=== PATIENT | female | born 1930 | race Caucasian/White ===

== ENCOUNTER 2017-03-27 14:08 | Emergency (ER) | payer MEDICARE, OTHER ==
[2017-03-27 14:14] VITALS: RESP 20
--- NOTE | 2017-03-27 14:29 | ED ---
General Adult HPI - General Chief complaint: Skin/Abscess/Foreign Body Stated complaint: Tooth stuck in lung Time Seen by Provider: 03/27/17 14:18 Source: patient Mode of arrival: ambulatory Limitations: no limitations - History of Present Illness Initial comments: This is an 86-year-old female who presents emergency department from her primary doctor's office for an aspirated crown from her tooth. The patient states that approximately 10 days ago she cracked the crown and went to the dentist area the dentist was removing it and lost it. They believe that she had swallowed it and he advised her to check her stool however she was not finding anything. She went to her primary doctor's office who shot an x-ray that showed that the crown was in the lung. On review of the film from the primary doctor's office it appears to be in the right inferior secondary branch. There does not appear to be any consolidation. The patient has been coughing since it happened however no other complaints. No fevers or chills. - Related Data Home Medications Medication Instructions Recorded Confirmed Ascorbic Acid [Vitamin C] 1,000 mg PO DAILY 03/27/17 03/27/17 Atenolol 25 mg PO DAILY 03/27/17 03/27/17 Calcium Carbonate [Calcium] 600 mg PO DAILY 03/27/17 03/27/17 Cyanocobalamin [Vitamin B-12] 500 mcg PO DAILY 03/27/17 03/27/17 Glucosam/Coleman-Msm1/C/Regino/Bosw 1 tab PO DAILY 03/27/17 03/27/17 [Glucosamine-Chondroitin Tablet] Lisinopril [Prinivil] 20 mg PO DAILY 03/27/17 03/27/17 Nasanel Nose Drops 1 drop EA NOSTRIL DAILY PRN 03/27/17 03/27/17 [place]-3 Fatty Acids/Fish Oil [Fish 1 cap PO DAILY 03/27/17 03/27/17 Oil 1,000 mg Softgel] Simvastatin [Zocor] 40 mg PO HS 03/27/17 03/27/17 Allergies Allergy/AdvReac Type Severity Reaction Status Date / Time No Known Allergies Allergy Verified 03/27/17 15:25 Review of Systems ROS Statement: Those systems with pertinent positive or pertinent negative responses have been documented in the HPI. ROS Other: All systems not noted in ROS Statement are negative. Past Medical History Past Medical History: Coronary Artery Disease (CAD), Chest Pain / Angina, Hyperlipidemia, Myocardial Infarction ([place]), Pneumonia History of Any Multi-Drug Resistant Organisms: None Reported Past Surgical History: Heart Catheterization With Stent Past Psychological History: No Psychological Hx Reported Smoking Status: Never smoker Past Alcohol Use History: None Reported Past Drug Use History: None Reported General Exam - General Exam Comments Initial Comments: Constitutional: Awake alert Appears comfortable Head: Normocephalic atraumatic Eyes: no conjunctival injection No scleral icterus EOMI Neck: No JVD Supple Heart: Regular rate rhythm normal S1-S2 no murmurs Lungs: Clear to auscultation bilaterally No wheezing No rales Abdomen: Soft nondistended nontender Extremities: Non edematous DP pulses intact Radial pulses intact Neuro: A&Ox3 No focal neurologic deficits Psych: Appropriate mood and affect Limitations: no limitations Course Vital Signs 03/27/17 14:09 Temperature 98.5 F Pulse Rate 78 Respiratory 20 Rate Blood Pressure 151/65 O2 Sat by Pulse 96 Oximetry Medical Decision Making - Medical Decision Making Is an 86-year-old female who presents emergency department for aspirated crown. Patient was seen by Dr. Maher and requires bronchoscopy however the patient last ate at 10:30 and thus would not be able to be done today. We're able to set up through Dr. Maher's office an appointment for bronchoscopy tomorrow. Sagar's office will call the patient and update them with the time of the bronchoscopy. At this time the patient is stable and able to go home. Can return if she has any worsening or changing symptoms. - Lab Data Result diagrams: 03/27/17 14:35 03/27/17 14:35 Lab Results 03/27/17 03/27/17 03/27/17 Range/Units 14:35 14:35 14:35 WBC 10.6 (3.8-10.6) k/uL RBC 3.88 (3.80-5.40) m/uL Hgb 12.5 (11.4-16.0) gm/dL Hct 36.8 (34.0-46.0) % MCV 94.8 (80.0-100.0) fL MCH 32.3 (25.0-35.0) pg MCHC 34.0 (31.0-37.0) g/dL RDW 13.5 (11.5-15.5) % Plt Count 166 (150-450) k/uL Neutrophils % 71 % Lymphocytes % 16 % Monocytes % 9 % Eosinophils % 1 % Basophils % 0 % Neutrophils # 7.6 (1.3-7.7) k/uL Lymphocytes # 1.7 (1.0-4.8) k/uL Monocytes # 1.0 (0-1.0) k/uL Eosinophils # 0.1 (0-0.7) k/uL Basophils # 0.0 (0-0.2) k/uL PT 11.3 (9.0-12.0) sec INR 1.1 (<1.2) APTT 24.4 (22.0-30.0) sec Sodium 136 L (137-145) mmol/L Potassium 4.4 (3.5-5.1) mmol/L Chloride 102 (98-107) mmol/L Carbon Dioxide 23 (22-30) mmol/L Anion Gap 11 mmol/L BUN 23 H (7-17) mg/dL Creatinine 1.12 H (0.52-1.04) mg/dL Est GFR (MDRD) Af Amer 56 (>60 ml/min/1.73 sqM) Est GFR (MDRD) Non-Af 46 (>60 ml/min/1.73 sqM) Glucose 110 H (74-99) mg/dL Calcium 9.0 (8.4-10.2) mg/dL Total Bilirubin 0.6 (0.2-1.3) mg/dL AST 72 H (14-36) U/L ALT 74 H (9-52) U/L Alkaline Phosphatase 155 H (38-126) U/L Total Protein 6.6 (6.3-8.2) g/dL Albumin 3.5 (3.5-5.0) g/dL Disposition Clinical Impression: Foreign body in lung Disposition: HOME SELF-CARE Condition: Stable Instructions: Flexible Bronchoscopy (ED) Referrals: Reji Stoner MD [Primary Care Provider] - 1-2 days iTto Maher MD [STAFF PHYSICIAN] - 1-2 days
[2017-03-27 14:50] LABS: Basophils % (A) 0 %; CH 32.6; CHCM 34.6; Eosinophils # (A) 0.1 k/uL (0-0.7); Eosinophils % (A) 1 %; HCT 36.8 % (34.0-46.0); HDW 2.84; HGB 12.5 gm/dL (11.4-16.0); Luc # (Auto) 0.24; Luc % (Auto) 2; Lymphocytes # (A) 1.7 k/uL (1.0-4.8); Lymphocytes % (A) 16 %; MCH 32.3 pg (25.0-35.0); MCV 94.8 fL (80.0-100.0); Mean Platelet Volume 7.8; Monocytes % (A) 9 %; Neutrophils # (A) 7.6 k/uL (1.3-7.7); Neutrophils % (A) 71 %; RBC 3.88 m/uL (3.80-5.40); RDW 13.5 % (11.5-15.5); WBC 10.6 k/uL (3.8-10.6); WBC (Perox) 10.74
[2017-03-27 15:04] LABS: Potassium 4.4 mmol/L (3.5-5.1); Total Bilirubin 0.6 mg/dL (0.2-1.3); Total Protein 6.6 g/dL (6.3-8.2)
[2017-03-27 15:07] LABS: INR 1.1 (<1.2); Partial Thromboplastin Time 24.4 sec (22.0-30.0); Prothrombin Time 11.3 sec (9.0-12.0)
[2017-03-27 15:50] VITALS: BP 153/68; PULSE 70; TEMP 98.1
== END 2017-03-27 16:02 | disposition home or self-care (01) ==
LOC: EC 14:08
DX: T17.298A Other foreign object in pharynx causing other injury, initial encounter (principal); I25.10 Atherosclerotic heart disease of native coronary artery without angina pectoris; E78.5 Hyperlipidemia, unspecified; I25.2 Old myocardial infarction; Z79.899 Other long term (current) drug therapy; Z95.5 Presence of coronary angioplasty implant and graft
CPT/HCPCS: 36415; 80053; 85025; 85610; 85730; 99283

== ENCOUNTER 2017-03-28 11:26 | Day surgery (SDC) | payer MEDICARE ==
--- NOTE | 2017-03-27 18:02 | P.CNPUL ---
History of Present Illness Consult date: 03/27/17 Chief complaint: Foreign body aspiration History of present illness: 86-year-old female patient who initially presented to her primary care for increased cough and. The patient was undergoing a dental procedure approximately 10 days ago and during the procedure the found that cracked and it was lost. Ascites also that the patient could have aspirated the gold crown. The patient believes that she swallowed the crown however based on an ongoing symptoms of coughing she went to her primary care physician and the chest x-ray was done and the count was found to be in the right lung, probably in the right mainstem bronchus or bronchus intermedius. No hemoptysis. No chest pain. No fever or chills. No pleurisy. I was asked to consult on this patient and bronchoscopically remove the foreign body. Review of Systems Constitutional: Denies chills, Denies fever Eyes: denies blurred vision, denies bulging eye, denies decreased vision Ears: deny: decreased hearing, ear discharge, earache, tinnitus Ears, nose, mouth and throat: Denies headache, Denies sore throat Cardiovascular: Denies chest pain, Denies shortness of breath Respiratory: Reports cough Gastrointestinal: Denies abdominal pain, Denies diarrhea, Denies nausea, Denies vomiting Genitourinary: Denies dysuria, Denies hematuria Musculoskeletal: Denies myalgias Musculoskeletal: absent: ankle pain, ankle stiffness, ankle swelling Integumentary: Denies pruritus, Denies rash Neurological: Denies numbness, Denies weakness Psychiatric: Denies anxiety, Denies depression Endocrine: Denies fatigue, Denies weight change Past Medical History Past Medical History: Coronary Artery Disease (CAD), Chest Pain / Angina, Hyperlipidemia, Myocardial Infarction ([place]), Pneumonia Additional Past Medical History / Comment(s): Coronary artery disease with a previous history of coronary intervention and stenting, hypertension, hyperlipidemia, osteoarthritis. History of Any Multi-Drug Resistant Organisms: None Reported Past Surgical History: Heart Catheterization With Stent Past Psychological History: No Psychological Hx Reported Smoking Status: Never smoker Past Alcohol Use History: None Reported Past Drug Use History: None Reported Medications and Allergies Home Medications Medication Instructions Recorded Confirmed Type Ascorbic Acid [Vitamin C] 1,000 mg PO DAILY 03/27/17 03/27/17 History Atenolol 25 mg PO DAILY 03/27/17 03/27/17 History Calcium Carbonate [Calcium] 600 mg PO DAILY 03/27/17 03/27/17 History Cyanocobalamin [Vitamin B-12] 500 mcg PO DAILY 03/27/17 03/27/17 History Glucosam/Coleman-Msm1/C/Regino/Bosw 1 tab PO DAILY 03/27/17 03/27/17 History [Glucosamine-Chondroitin Tablet] Lisinopril [Prinivil] 20 mg PO DAILY 03/27/17 03/27/17 History Nasanel Nose Drops 1 drop EA NOSTRIL DAILY PRN 03/27/17 03/27/17 History [place]-3 Fatty Acids/Fish Oil [Fish 1 cap PO DAILY 03/27/17 03/27/17 History Oil 1,000 mg Softgel] Simvastatin [Zocor] 40 mg PO HS 03/27/17 03/27/17 History Allergies Allergy/AdvReac Type Severity Reaction Status Date / Time No Known Allergies Allergy Verified 03/27/17 15:25 Physical Exam The patient appeared well nourished and normally developed. Vital signs as documented. Head exam is unremarkable. No scleral icterus or corneal arcus noted. Neck is without jugular venous distension, thyromegaly, or carotid bruits. Carotid upstrokes are brisk bilaterally. Lungs are clear to auscultation and percussion. Cardiac exam reveals the PMI to be normally sized and situated. Rhythm is regular. First and second heart sounds normal. No murmurs, rubs or gallops. Abdominal exam reveals normal bowel sounds, no masses , no organomegaly and no aortic enlargement. Extremities are nonedematous and both femoral and pedal pulses are normal. Results - Diagnostic Findings Chest x-ray: image reviewed Assessment and Plan Plan: Assessment 1 foreign body aspiration, a dental crown/metallic/gold. Based on x-ray, this foreign bodies either in the right mainstem bronchus or the bronchus intermedius. Bronchoscopic removal of foreign body will be needed 2 cough secondary to above 3 coronary artery disease, history of 4 hypertension 5 hyperlipidemia Plan The patient will be discharged home. The scheduled bronchoscopy will be done tomorrow at around noontime for retrieval of this foreign body. Unfortunately the procedure cannot be done today as long as the patient had fluid intake around noontime and she is be at least nothing by mouth for 6 hours prior to bronchoscopic intervention. Furthermore, the endoscopy team will be available for today. Based on this, this procedure was scheduled for tomorrow. The patient will be discharged home today. She will present again tomorrow. After midnight. The procedure was extended to her at length. Further recommendations are to follow following the bronchoscopy.
[~2017-03-28 11:26] MED LIST: ALBUTEROL NEB (CONC) 2.5 MG/0.5 ML INHALATION ONE; LACTATED RINGERS 1,000 ML IV ONE; LIDOCAINE 2% (PF) 20 MG/ML 10ML INHALATION ONE; Pre Op ABX Message 1 EACH MISC MISCELLANE ONE
[2017-03-28] MEDS ORDERED: SUCCINYLCHOLINE CHLORIDE VIAL 200 MG/10 ML VIAL IV ONE (13:38)
[2017-03-28] MEDS ORDERED: GLYCOPYRROLATE 0.2 MG/ML 2 ML VIAL ONE (13:38)
[2017-03-28] MEDS ORDERED: PROPOFOL 10 MG/ML 20 ML VIAL IV ONE (13:38)
[2017-03-28] MEDS ORDERED: DEXAMETHASONE SOD PHOS (MDV) 100 MG/10 ML VIAL ONE (13:38)
[2017-03-28] MEDS ORDERED: MIDAZOLAM 2 MG/2 ML VIAL ONE (13:38)
--- NOTE | 2017-03-28 14:18 | P.PCN ---
Date of Procedure: 03/28/17 Preoperative Diagnosis: Foreign body aspiration Postoperative Diagnosis: Foreign body aspiration Procedure(s) Performed: Flexible bronchoscopy, extraction of a foreign body/gold tooth crown, bronchioloalveolar lavage of the right lower lobe Implants: Anesthesia: JAYYA Surgeon: Tito Maher Visual Coordinator #1: Francia Barriga Estimated Blood Loss (ml): 0 Pathology: none sent Condition: stable Disposition: same day Indications for Procedure: Persistent cough, aspiration Operative Findings: Description of Procedure: This procedure was done in the operating room. The patient's procedure was done under general anesthesia. The patient was induced with propofol and succinylcholine. Intubated and placed on a mechanical ventilator I anesthesia. The patient was intubated by a #8 orotracheal tube. An adapter was attached orotracheal tube and the procedure was done as the patient was being mechanically ventilated. Following that, the flexible bronchoscope was inserted the oral check her tube and was advanced into the lower trachea. A triple daughter taken she was seen around 3 cm above the mary. There was copious amount of purulent respiratory secretions it emanating in the distal trachea, right mainstem bronchus, right bronchus intermedius and right lower lobe bronchus. Therapeutic airway suctioning was done and airway inspection was completed. Examination of the left side of the lung was within normal limits. Mary was sharp in the midline, left mainstem bronchus left upper lobe bronchus and left lower lobe bronchus were patent and within normal limits without any foreign bodies. Examination of the right side showed a normal right upper lobe bronchus. Bronchus intermedius was quite significantly impacted by purulent secretions were suctioned out. After adequate adequate suctioning, the right lower lobe bronchus was visualized more accurately. The gold to it Was seen covering the right lower lobe bronchus. The Was infiltrating within the bronchial mucosa and it was somewhat entrenched within the mucosa. The Was also circumferentially covered by granulation tissue that was causing near complete obstruction of the right lower lobe bronchus. At this point, greatest was were used to manipulate and mobilize the tooth. I utilized a basket and then a grasping pentapod forceps. Despite our ability to grab the foreign body, the forceps that was used was unable to keep the foreign body in a good firm grasp to the point where it could be pulled out through the orotracheal tube and out of the airways. Ultimately, if 4.7 mm grasping forceps was used and after getting an adequate garbage stoker on the foreign body, the patient was extubated while the foreign body was being extracted under direct visualization using the flexible bronchoscope. The foreign body was successfully removed. Following that the patient was intubated by anesthesia and airway inspection was completed. There was significant amount of dilation tissue growing circumferentially in the right lower lobe bronchus causing significant drop in the caliber of the airway. I would estimate the caliber of the airway was reduced by about 50%. A bronchioloalveolar lavage of the right lower lobe was done. A total of 1 20 mL of fluid was infused in 30 mL of purulent material was aspirated. At the end of the procedure, no additional foreign body within the fight and the patient was sedated and chest to recovery in stable condition. The bronchioloalveolar lavage will be sent for microbial culture. The patient will be started on Augmentin 875 mg by mouth twice a day for the next 7 days. Follow-up chest x-ray in the office. Discharge once cleared by anesthesia.
[2017-03-28] MEDS ORDERED: LACTATED RINGERS 1,000 ML IV ONE ×2 (14:29)
[2017-03-28 14:37] VITALS: TEMP 97.8
[2017-03-28] MEDS ORDERED: guaiFENesin-Coden 100-10MG/5ML 10 ML CUP PO PRN (15:02)
[2017-03-28 15:46] VITALS: RESP 16
[2017-03-28 16:16] VITALS: BP 146/65; PULSE 84
[2017-03-28 20:23] LABS: RBC, Body Fluid 64500 /uL
== END 2017-03-28 16:25 | disposition home or self-care (01) ==
LOC: ORWHC2ENDO 11:26
PROVIDERS: ATTEND Internal Medicine Critical Care Medicine
DX: T17.590A Other foreign object in bronchus causing asphyxiation, initial encounter (principal); I25.10 Atherosclerotic heart disease of native coronary artery without angina pectoris; E78.5 Hyperlipidemia, unspecified; M19.90 Unspecified osteoarthritis, unspecified site; Z95.5 Presence of coronary angioplasty implant and graft; I25.2 Old myocardial infarction; Z79.899 Other long term (current) drug therapy; Z87.01 Personal history of pneumonia (recurrent)
CPT/HCPCS: 88108; 88305; 89050; 87070; 87205; 31624; 31635; J2250; J0330; J2001; J1100; J2704

== ENCOUNTER 2017-03-31 20:32 | Inpatient (IN) | payer MEDICARE ==
[2017-03-31] MEDS ORDERED: ACETAMINOPHEN TAB 500 MG TAB PO STA (21:59)
[2017-03-31] MEDS ORDERED: IPRATROPIUM-ALBUTEROL 3 ML NEB INHALATION STA (21:59)
[2017-03-31] MEDS ORDERED: SODIUM CHLORIDE 0.9% 1,000 ML IV ONE (22:01)
--- NOTE | 2017-03-31 22:13 | ED ---
URI HPI - General Chief Complaint: Upper Respiratory Infection Stated Complaint: SOB Time Seen by Provider: 03/31/17 21:59 Source: patient, RN notes reviewed, old records reviewed Mode of arrival: ambulatory Limitations: no limitations - History of Present Illness Initial Comments: This is an 86-year-old female presenting to emergency Department 2 days post bronchoscopy after a tooth Was re-swallowed and then removed. She reports that she had a "blackout of her right lung". Patient states that she was discharged with Augmentin and Robitussin with codeine. She reports that despite taking the antibiotics and cough syrup she's had a worsening cough and has had fevers. She reports that she had some Tylenol earlier today. She states that her she does have some abdominal muscle pain due to the amount of coughing she's had. She didn't ports she's had some diarrhea today as well. - Related Data Home Medications Medication Instructions Recorded Confirmed Ascorbic Acid [Vitamin C] 1,000 mg PO DAILY 03/27/17 03/31/17 Atenolol 25 mg PO DAILY 03/27/17 03/31/17 Calcium Carbonate [Calcium] 600 mg PO DAILY 03/27/17 03/31/17 Cyanocobalamin [Vitamin B-12] 500 mcg PO DAILY 03/27/17 03/31/17 Glucosam/Coleman-Msm1/C/Regino/Bosw 1 tab PO DAILY 03/27/17 03/31/17 [Glucosamine-Chondroitin Tablet] Lisinopril [Prinivil] 20 mg PO DAILY 03/27/17 03/31/17 Nasanel Nose Drops 1 drop EA NOSTRIL DAILY PRN 03/27/17 03/31/17 [place]-3 Fatty Acids/Fish Oil [Fish 1 cap PO DAILY 03/27/17 03/31/17 Oil 1,000 mg Softgel] Simvastatin [Zocor] 40 mg PO HS 03/27/17 03/31/17 Amoxic-Pot Clav 875-125Mg 1 tab PO Q12HR 03/31/17 03/31/17 [Augmentin 875-125] guaiFENesin-Coden 100-10MG/5ML 5 - 10 ml PO Q6HR PRN 03/31/17 03/31/17 [Robitussin AC] Allergies Allergy/AdvReac Type Severity Reaction Status Date / Time No Known Allergies Allergy Verified 03/31/17 21:47 Review of Systems ROS Statement: Those systems with pertinent positive or pertinent negative responses have been documented in the HPI. ROS Other: All systems not noted in ROS Statement are negative. Past Medical History Past Medical History: Coronary Artery Disease (CAD), Chest Pain / Angina, Hyperlipidemia, Myocardial Infarction ([place]), Pneumonia Additional Past Medical History / Comment(s): Coronary artery disease with a previous history of coronary intervention and stenting, hypertension, hyperlipidemia, osteoarthritis. History of Any Multi-Drug Resistant Organisms: None Reported Past Surgical History: Heart Catheterization With Stent Past Psychological History: No Psychological Hx Reported Smoking Status: Never smoker Past Alcohol Use History: None Reported Past Drug Use History: None Reported - Past Family History Mother Family Medical History: Hyperlipidemia, Hypertension General Exam - General Exam Comments Initial Comments: Pleasant 86year old female, no acute distress. Limitations: no limitations General appearance: alert, in no apparent distress Head exam: Present: atraumatic, normocephalic, normal inspection Eye exam: Present: normal appearance, PERRL, EOMI. Absent: scleral icterus, conjunctival injection, periorbital swelling ENT exam: Present: normal exam, mucous membranes moist Neck exam: Present: normal inspection. Absent: tenderness, meningismus, lymphadenopathy Respiratory exam: Present: normal lung sounds bilaterally, wheezes (Mild wheeze in the right lower lung field.). Absent: respiratory distress, rales, rhonchi, stridor Cardiovascular Exam: Present: regular rate, normal rhythm, normal heart sounds. Absent: systolic murmur, diastolic murmur, rubs, gallop, clicks GI/Abdominal exam: Present: soft, normal bowel sounds. Absent: distended, tenderness, guarding, rebound, rigid Extremities exam: Present: normal inspection, full ROM, normal capillary refill. Absent: tenderness, pedal edema, joint swelling, calf tenderness Back exam: Present: normal inspection Neurological exam: Present: alert, oriented X3, CN II-XII intact Psychiatric exam: Present: normal affect, normal mood Skin exam: Present: warm, dry, intact, normal color. Absent: rash Course Vital Signs 03/31/17 03/31/17 03/31/17 21:26 22:41 22:48 Temperature 103.1 F H Pulse Rate 105 H 84 84 Respiratory 22 Rate Blood Pressure 219/91 O2 Sat by Pulse 92 L Oximetry 04/01/17 04/01/17 00:00 02:00 Temperature 98.4 F 98.4 F Pulse Rate 83 90 Respiratory 16 20 Rate Blood Pressure 140/63 144/66 O2 Sat by Pulse 100 100 Oximetry Medical Decision Making - Medical Decision Making This is an 86-year-old female presenting to emergency Department 2 days post bronchoscopy after a tooth Was aspirated and then removed. She reports that she had a "blackout of her right lung". Patient states that she was discharged with Augmentin and Robitussin with codeine. She reports that despite taking the antibiotics and cough syrup she's had a worsening cough and has had fevers. She does have some mild wheezing. Patient was given a breathing treatment IV fluids lab work obtained. Patient given Tylenol for fever. She arrives to emergency department with 103.1 temperature. Patient labwork was reviewed and no leukocytosis. Negative lactic acid. Chest x-ray was reviewed and showed a right basilar consolidation consistent with pneumonia. Given patient's recent bronchoscopy we will cover for aspiration pneumonia. As patient is a currently been on Augmentin for the past 2 days patient will be started on Azactam, clindamycin, and Levaquin. Discussed that we will does cough syrup and do breathing treatments as directed. 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 Maher. He will be consulted. - Lab Data Result diagrams: 03/31/17 22:40 03/31/17 22:40 Lab Results 03/31/17 03/31/17 03/31/17 Range/Units 22:35 22:40 22:40 WBC 8.3 (3.8-10.6) k/uL RBC 3.97 (3.80-5.40) m/uL Hgb 12.5 (11.4-16.0) gm/dL Hct 38.0 (34.0-46.0) % MCV 95.8 (80.0-100.0) fL MCH 31.4 (25.0-35.0) pg MCHC 32.8 (31.0-37.0) g/dL RDW 13.7 (11.5-15.5) % Plt Count 176 (150-450) k/uL Neutrophils % 82 % Lymphocytes % 9 % Monocytes % 6 % Eosinophils % 2 % Basophils % 0 % Neutrophils # 6.8 (1.3-7.7) k/uL Lymphocytes # 0.7 L (1.0-4.8) k/uL Monocytes # 0.5 (0-1.0) k/uL Eosinophils # 0.1 (0-0.7) k/uL Basophils # 0.0 (0-0.2) k/uL PT (9.0-12.0) sec INR (<1.2) APTT (22.0-30.0) sec Sodium 135 L (137-145) mmol/L Potassium 4.3 (3.5-5.1) mmol/L Chloride 100 (98-107) mmol/L Carbon Dioxide 24 (22-30) mmol/L Anion Gap 11 mmol/L BUN 18 H (7-17) mg/dL Creatinine 0.90 (0.52-1.04) mg/dL Est GFR (MDRD) Af Amer >60 (>60 ml/min/1.73 sqM) Est GFR (MDRD) Non-Af 60 (>60 ml/min/1.73 sqM) Glucose 141 H (74-99) mg/dL Plasma Lactic Acid Raymundo (0.7-2.0) mmol/L Calcium 9.1 (8.4-10.2) mg/dL Magnesium 1.8 (1.6-2.3) mg/dL Total Bilirubin 0.7 (0.2-1.3) mg/dL AST 51 H (14-36) U/L ALT 94 H (9-52) U/L Alkaline Phosphatase 216 H (38-126) U/L Total Protein 6.5 (6.3-8.2) g/dL Albumin 3.4 L (3.5-5.0) g/dL Influenza Type A RNA Not Detected (Not Detectd) Influenza Type B (PCR) Not Detected (Not Detectd) 03/31/17 03/31/17 Range/Units 22:40 22:40 WBC (3.8-10.6) k/uL RBC (3.80-5.40) m/uL Hgb (11.4-16.0) gm/dL Hct (34.0-46.0) % MCV (80.0-100.0) fL MCH (25.0-35.0) pg MCHC (31.0-37.0) g/dL RDW (11.5-15.5) % Plt Count (150-450) k/uL Neutrophils % % Lymphocytes % % Monocytes % % Eosinophils % % Basophils % % Neutrophils # (1.3-7.7) k/uL Lymphocytes # (1.0-4.8) k/uL Monocytes # (0-1.0) k/uL Eosinophils # (0-0.7) k/uL Basophils # (0-0.2) k/uL PT 11.6 (9.0-12.0) sec INR 1.2 H (<1.2) APTT 24.1 (22.0-30.0) sec Sodium (137-145) mmol/L Potassium (3.5-5.1) mmol/L Chloride (98-107) mmol/L Carbon Dioxide (22-30) mmol/L Anion Gap mmol/L BUN (7-17) mg/dL Creatinine (0.52-1.04) mg/dL Est GFR (MDRD) Af Amer (>60 ml/min/1.73 sqM) Est GFR (MDRD) Non-Af (>60 ml/min/1.73 sqM) Glucose (74-99) mg/dL Plasma Lactic Acid Raymundo 1.4 (0.7-2.0) mmol/L Calcium (8.4-10.2) mg/dL Magnesium (1.6-2.3) mg/dL Total Bilirubin (0.2-1.3) mg/dL AST (14-36) U/L ALT (9-52) U/L Alkaline Phosphatase (38-126) U/L Total Protein (6.3-8.2) g/dL Albumin (3.5-5.0) g/dL Influenza Type A RNA (Not Detectd) Influenza Type B (PCR) (Not Detectd) - Radiology Data Radiology results: report reviewed Right basilar consolidation. Likely due to pneumonia and proper clinical setting. Follow-up to clearing. Disposition Clinical Impression: Cough, Aspiration pneumonia Disposition: ADMITTED IP TO THIS HOSP Condition: Stable Time of Disposition: 00:20
[2017-03-31 23:08] LABS: INR 1.2 (<1.2); Partial Thromboplastin Time 24.1 sec (22.0-30.0); Prothrombin Time 11.6 sec (9.0-12.0)
[2017-03-31 23:09] LABS: ALT 94 U/L (9-52); AST 51 U/L (14-36); Alkaline Phosphatase 216 U/L (38-126); Anion Gap 11 mmol/L; Basophils % (A) 0 %; Blood Urea Nitrogen 18 mg/dL (7-17); CH 32.5; CHCM 34.1; Calcium 9.1 mg/dL (8.4-10.2); Carbon Dioxide 24 mmol/L (22-30); Chloride 100 mmol/L (98-107); Eosinophils # (A) 0.1 k/uL (0-0.7); Eosinophils % (A) 2 %; Glucose 141 mg/dL (74-99); HDW 2.75; HGB 12.5 gm/dL (11.4-16.0); Luc # (Auto) 0.13; Luc % (Auto) 2; Lymphocytes # (A) 0.7 k/uL (1.0-4.8); Lymphocytes % (A) 9 %; MCH 31.4 pg (25.0-35.0); MCHC 32.8 g/dL (31.0-37.0); MCV 95.8 fL (80.0-100.0); Magnesium 1.8 mg/dL (1.6-2.3); Mean Platelet Volume 7.3; Monocytes # (A) 0.5 k/uL (0-1.0); Monocytes % (A) 6 %; Neutrophils # (A) 6.8 k/uL (1.3-7.7); Neutrophils % (A) 82 %; Non-African American GFR(MDRD) 60 (>60 ml/min/1.73 sqM); Potassium 4.3 mmol/L (3.5-5.1); RBC 3.97 m/uL (3.80-5.40); RDW 13.7 % (11.5-15.5); Sodium 135 mmol/L (137-145); Total Bilirubin 0.7 mg/dL (0.2-1.3); Total Protein 6.5 g/dL (6.3-8.2); WBC 8.3 k/uL (3.8-10.6); WBC (Perox) 8.39
[2017-04-01] MEDS ORDERED: LEVOFLOXACIN 750MG-D5W PMX 750 MG in DEXTROSE/WATER 1 150ML.BAG IVPB STA (00:08)
[2017-04-01] MEDS ORDERED: PNEUMONIA PROTOCOL UTILIZED 1 EACH MISC PO PRN (00:08)
[2017-04-01] MEDS ORDERED: AZTREONAM 2 GM in SODIUM CHLORIDE 0.9% 100 ML IVPB STA (00:08)
[2017-04-01] MEDS ORDERED: PROMETHAZ-COD 6.25-10 MG/5 ML 5 ML CUP PO PRN (00:18)
--- NOTE | 2017-04-01 00:19 | XR ---
PROCEDURE: FILM CXR 2 VIEWS HISTORY: 86-year-old female with cough. COMPARISON: Chest radiograph 03/27/2017 TECHNIQUE: Frontal and lateral views of the chest were obtained. FINDINGS: Cardiomediastinal silhouette is stable The previously identified hyperdense focus projecting over the right hilum is no longer identified. There is increasing consolidation in the right lung base, likely due to pneumonia in the appropriate clinical setting. Bones are similar to prior. IMPRESSION: Right basilar consolidation, likely due to pneumonia in the proper clinical setting. Followup to clearing.
[2017-04-01] MEDS ORDERED: NALOXONE 0.4 MG/ML 1 ML VIAL IV PRN (00:21)
[2017-04-01] MEDS ORDERED: IBUPROFEN 400 MG TAB PO PRN (00:21)
[2017-04-01] MEDS ORDERED: KETOROLAC 30 MG/ML 1 ML VIAL IVP PRN (00:21)
[2017-04-01] MEDS ORDERED: MORPHINE SULFATE 4 MG/ML SYRINGE IV PRN (00:21)
[2017-04-01] MEDS: SODIUM CHLORIDE 0.9% 1,000 ML IV SCH ×3 (00:42→20:09)
[2017-04-01 03:09] VITALS: BMI 27.4
[2017-04-01] MEDS: IPRATROPIUM-ALBUTEROL 3 ML NEB INHALATION PRN ×2 (07:06→20:20)
[2017-04-01] MEDS: ASCORBIC ACID 500 MG TAB PO SCH (07:58)
[2017-04-01] MEDS: ATENOLOL 25 MG TAB PO SCH (07:59)
[2017-04-01] MEDS: CYANOCOBALAMIN 500 MCG TAB PO SCH (07:59)
[2017-04-01] MEDS: CALCIUM CARBONATE 500 MG CHEWABLE PO SCH (07:59)
[2017-04-01] MEDS: LISINOPRIL 20 MG TAB PO SCH (07:59)
[2017-04-01] MEDS: CLINDAMYCIN 600 MG in DEXTROSE 5% IN WATER 50 ML IVPB SCH ×4 (08:10→15:58)
[2017-04-01] MEDS ORDERED: NON-FORMULARY DRUG (Omega-3 Fatty Acids/Fish Oil [Fish Oil 1,000 Mg Softgel] 1 CAP) PO SCH (09:00)
[2017-04-01] MEDS ORDERED: FAMOTIDINE 20 MG TAB PO SCH (09:00)
--- NOTE | 2017-04-01 11:38 | P.HPIM ---
History of Present Illness H&P Date: 04/01/17 Chief Complaint: Shortness of breath with cough and fever This is an 86-year-old female with a past medical history of hypertension presenting to emergency Department 2 days post bronchoscopy after a gold tooth cap was swallowed during a dental procedure done on last and then removed. She reports that she had a "blackout of her right lung". Patient states that she was discharged with Augmentin and Robitussin with codeine. She reports that despite taking the antibiotics and cough syrup she's had a worsening cough and has had fevers. She reports that she had Tylenol in the year. She states that her she does have some abdominal muscle pain due to the amount of coughing she's had. She didn't ports she's had some diarrhea today as well. Patient was given a dose of aztreonam in the emergency room and was started on clindamycin at this time. Patient has been afebrile since this morning. No complaints of chest pain or short of breath. Review of Systems Constitutional: Patient had fever and chills. No generalized weakness or weight loss. Abdomen: Patient denied nausea vomiting and diarrhea and abdominal pain. Cardiovascular: Patient denies any chest pain or short of breath no palpitations. Respiratory: patient does have cough. no sputum production. No shortness of breath Neurologic: Patient denied any numbness or tingling headache. Musculoskeletal: Patient denies any complaints of joint swelling or deformity. Skin: Patient does have left wrist skin wound. Psychiatric: Negative Endocrine: No heat or cold intolerance. No recent weight gain. Genitourinary: No dysuria or hematuria. All other 14 point ROS negative except the above Past Medical History Past Medical History: Coronary Artery Disease (CAD), Chest Pain / Angina, Hyperlipidemia, Myocardial Infarction ([place]), Pneumonia Additional Past Medical History / Comment(s): Coronary artery disease with a previous history of coronary intervention and stenting, hypertension, hyperlipidemia, osteoarthritis. Last Myocardial Infarction Date:: unk History of Any Multi-Drug Resistant Organisms: None Reported Past Surgical History: Heart Catheterization With Stent Past Anesthesia/Blood Transfusion Reactions: No Reported Reaction Date of Last Stent Placement:: unk Past Psychological History: No Psychological Hx Reported Smoking Status: Never smoker Past Alcohol Use History: None Reported Past Drug Use History: None Reported - Past Family History Mother Family Medical History: Hyperlipidemia, Hypertension Medications and Allergies Home Medications Medication Instructions Recorded Confirmed Type Ascorbic Acid [Vitamin C] 1,000 mg PO DAILY 03/27/17 03/31/17 History Atenolol 25 mg PO DAILY 03/27/17 03/31/17 History Calcium Carbonate [Calcium] 600 mg PO DAILY 03/27/17 03/31/17 History Cyanocobalamin [Vitamin B-12] 500 mcg PO DAILY 03/27/17 03/31/17 History Glucosam/Coleman-Msm1/C/Regino/Bosw 1 tab PO DAILY 03/27/17 03/31/17 History [Glucosamine-Chondroitin Tablet] Lisinopril [Prinivil] 20 mg PO DAILY 03/27/17 03/31/17 History Nasanel Nose Drops 1 drop EA NOSTRIL DAILY PRN 03/27/17 03/31/17 History [place]-3 Fatty Acids/Fish Oil [Fish 1 cap PO DAILY 03/27/17 03/31/17 History Oil 1,000 mg Softgel] Simvastatin [Zocor] 40 mg PO HS 03/27/17 03/31/17 History Amoxic-Pot Clav 875-125Mg 1 tab PO Q12HR 03/31/17 03/31/17 History [Augmentin 875-125] guaiFENesin-Coden 100-10MG/5ML 5 - 10 ml PO Q6HR PRN 03/31/17 03/31/17 History [Robitussin AC] Allergies Allergy/AdvReac Type Severity Reaction Status Date / Time No Known Allergies Allergy Verified 03/31/17 21:47 Physical Exam Vitals: Vital Signs Temp Pulse Pulse Resp BP BP Pulse Ox 04/01/17 07:18 84 04/01/17 07:06 82 04/01/17 07:00 97.2 F L 82 20 165/82 99 04/01/17 02:40 18 04/01/17 02:31 97.8 F 86 18 167/71 92 L 04/01/17 02:00 98.4 F 90 20 144/66 100 04/01/17 00:00 98.4 F 83 16 140/63 100 03/31/17 22:48 84 03/31/17 22:41 84 03/31/17 21:26 103.1 F H 105 H 22 219/91 92 L Intake and Output 03/31/17 04/01/17 04/01/17 22:59 06:59 14:59 Intake Total 470 Balance 470 Intake: Intake, IV Titration 350 Amount Levofloxacin 750Mg-D5w 150 Pmx 750 mg In Dextrose/ Water 1 150ml.bag @ 100 mls/hr IVPB ONCE [facility] Rx#: [id number] Sodium Chloride 0.9% 1, 200 000 ml @ 100 mls/hr IV . Q10H [facility] Rx#:[id number] Oral 120 Other: # Voids 1 Weight 68.039 kg 68.039 kg PHYSICAL EXAMINATION: Patient is lying in the bed comfortably, no acute distress, awake alert and oriented.. HEENT: Normocephalic. Neck is supple. Pupils reactive. Nostrils clear. Oral cavity is moist. Ears reveal no drainage. Neck reveals no JVD, carotid bruits, or thyromegaly. CHEST EXAMINATION: Trachea is central. Symmetrical expansion. No wheezing. Patient does have right lower lobe crackles. No rhonchi. CARDIAC: Normal S1, S2 with no gallops. No murmurs ABDOMEN: Soft. Bowel sounds normal. No organomegaly. No abdominal bruits. Extremities: reveal no edema. No clubbing or cyanosis Neurologically awake, alert, oriented x3 with well-coordinated movements. No focal deficits noted Skin: No rash or skin lesions. Psychiatric: coOperative. Nonsuicidal Musculoskeletal: No joint swelling or deformity. Normal range of motion. Results CBC & Chem 7: 03/31/17 22:40 03/31/17 22:40 Labs: Abnormal Lab Results - Last 24 Hours (Table) 03/31/17 03/31/17 03/31/17 Range/Units 22:40 22:40 22:40 Lymphocytes # 0.7 L (1.0-4.8) k/uL INR 1.2 H (<1.2) Sodium 135 L (137-145) mmol/L BUN 18 H (7-17) mg/dL Glucose 141 H (74-99) mg/dL AST 51 H (14-36) U/L ALT 94 H (9-52) U/L Alkaline Phosphatase 216 H (38-126) U/L Albumin 3.4 L (3.5-5.0) g/dL Thrombosis Risk Factor Assmnt - DVT/VTE Prophylaxis DVT/VTE Prophylaxis: Pharmacologic Prophylaxis ordered - Choose All That Apply Any of the Below Risk Factors Present?: Yes Each Factor Represents 1 point: Obesity (BMI >25) Other Risk Factors: Yes Each Risk Factor Represents 3 Points: Age 75 years or older Other congenital or acquired thrombophilia - If yes, enter type in comment: No Thrombosis Risk Factor Assessment Total Risk Factor Score: 4 Thrombosis Risk Factor Assessment Level: Moderate Risk Assessment and Plan Plan: #1 sepsis secondary to right lower lobe pneumonia. Likely due to aspiration. Patient was febrile and tachycardic. #2 recent bronchoscopy due to swallowed both While doing dental procedure #3 history of coronary artery disease with stenting #4 hypertension #5 hyperlipidemia #[address] Plan. Patient will be continued on antibiotics in the form of clindamycin IV. Patient was given a dose of aztreonam while in the ER. Patient has been afebrile since last night. We will encourage deep breathing exercises and follow closely. Continue the home medications. Heparin subcu for DVT prophylaxis. Pulmonary has been consulted for further evaluation. Time with Patient: Greater than 30
--- NOTE | 2017-04-01 12:08 | P.CNPUL ---
History of Present Illness Consult date: 04/01/17 Requesting physician: Toro Pichardo Reason for consult: cough Chief complaint: Cough, fever History of present illness: This is a very pleasant 86-year-old female patient who follows with Dr. Stoner as her primary care physician. He has a history of coronary artery disease previous stent placement, hyperlipidemia hypertension, osteoarthritis. She is a lifelong nonsmoker. She had recently aspirated a gold crown estimated 10 days prior to her arriving to the emergency room on 03/27/2017. She initially thought she swallowed it. She had continued and ongoing cough the chest x-ray performed by her primary healthcare provider revealed hyperdense object in the right lung. Subsequently she had undergone a bronchoscopy by Dr. Maher on and the crown was removed from the right lower lobe bronchus. There was noted purulent secretions beyond the foreign body and a bronchial alveolar lavage was performed. She was discharged home the same day with Augmentin and Robitussin with codeine. Bronchial washings reported out on the revealed no growth. She reports presented here last evening with complaints of ongoing cough despite being on antibiotics and Robitussin. She also had developed fever. Her chest x-ray shows some atelectatic changes in the right lung base. She was admitted and initiated on clindamycin. She is seen today in consultation on the regular medical floor. She is awake and alert in no acute distress. Her cough has subsided. It is dry and nonproductive. She is maintaining good O2 saturations in the upper 90s on room air. She is afebrile. Hemodynamically stable. No tachycardia, no tachypnea, no leukocytosis. Influenza screen was negative. Review of Systems 14 point review of system was conducted. All negative other than as mentioned in HPI. Past Medical History Past Medical History: Coronary Artery Disease (CAD), Chest Pain / Angina, Hyperlipidemia, Myocardial Infarction ([place]), Pneumonia Additional Past Medical History / Comment(s): Coronary artery disease with a previous history of coronary intervention and stenting, hypertension, hyperlipidemia, osteoarthritis. Last Myocardial Infarction Date:: unk History of Any Multi-Drug Resistant Organisms: None Reported Past Surgical History: Heart Catheterization With Stent Past Anesthesia/Blood Transfusion Reactions: No Reported Reaction Date of Last Stent Placement:: unk Past Psychological History: No Psychological Hx Reported Smoking Status: Never smoker Past Alcohol Use History: None Reported Past Drug Use History: None Reported - Past Family History Mother Family Medical History: Hyperlipidemia, Hypertension Medications and Allergies Home Medications Medication Instructions Recorded Confirmed Type Ascorbic Acid [Vitamin C] 1,000 mg PO DAILY 03/27/17 03/31/17 History Atenolol 25 mg PO DAILY 03/27/17 03/31/17 History Calcium Carbonate [Calcium] 600 mg PO DAILY 03/27/17 03/31/17 History Cyanocobalamin [Vitamin B-12] 500 mcg PO DAILY 03/27/17 03/31/17 History Glucosam/[place]-Msm1/C/Regino/Bosw 1 tab PO DAILY 03/27/17 03/31/17 History [Glucosamine-Chondroitin Tablet] Lisinopril [Prinivil] 20 mg PO DAILY 03/27/17 03/31/17 History Nasanel Nose Drops 1 drop EA NOSTRIL DAILY PRN 03/27/17 03/31/17 History [place]-3 Fatty Acids/Fish Oil [Fish 1 cap PO DAILY 03/27/17 03/31/17 History Oil 1,000 mg Softgel] Simvastatin [Zocor] 40 mg PO HS 03/27/17 03/31/17 History Amoxic-Pot Clav 875-125Mg 1 tab PO Q12HR 03/31/17 03/31/17 History [Augmentin 875-125] guaiFENesin-Coden 100-10MG/5ML 5 - 10 ml PO Q6HR PRN 03/31/17 03/31/17 History [Robitussin AC] Allergies Allergy/AdvReac Type Severity Reaction Status Date / Time No Known Allergies Allergy Verified 03/31/17 21:47 Physical Exam Vitals: Vital Signs Temp Pulse Pulse Resp BP BP Pulse Ox 04/01/17 07:18 84 04/01/17 07:06 82 04/01/17 07:00 97.2 F L 82 20 165/82 99 04/01/17 02:40 18 04/01/17 02:31 97.8 F 86 18 167/71 92 L 04/01/17 02:00 98.4 F 90 20 144/66 100 04/01/17 00:00 98.4 F 83 16 140/63 100 03/31/17 22:48 84 03/31/17 22:41 84 03/31/17 21:26 103.1 F H 105 H 22 219/91 92 L Intake and Output 03/31/17 04/01/17 04/01/17 22:59 06:59 14:59 Intake Total 470 Balance 470 Intake: Intake, IV Titration 350 Amount Levofloxacin 750Mg-D5w 150 Pmx 750 mg In Dextrose/ Water 1 150ml.bag @ 100 mls/hr IVPB ONCE STA Rx#: [id number] Sodium Chloride 0.9% 1, 200 000 ml @ 100 mls/hr IV . Q10H [facility] Rx#:[id number] Oral 120 Other: # Voids 1 Weight 68.039 kg 68.039 kg GENERAL EXAM: Alert, active, comfortable in no apparent distress. HEAD: Normocephalic. EYES: Normal reaction of pupils, equal size. NOSE: Clear with pink turbinates. THROAT: No erythema or exudates. NECK: No masses, no JVD. CHEST: No chest wall deformity. LUNGS: Equal air entry with no crackles, wheeze, rhonchi or dullness. CVS: S1 and S2 normal with no audible murmurs, regular rhythm. ABDOMEN: No hepatosplenomegaly, normal bowel sounds, no guarding or rigidity. SPINE: No scoliosis or deformity SKIN: No rashes CENTRAL NERVOUS SYSTEM: No focal deficits, tone is normal in all 4 extremities. Extremities: There is no significant peripheral edema. No clubbing, no cyanosis. Peripheral pulses are intact. Results - Laboratory Findings CBC and BMP: 03/31/17 22:40 03/31/17 22:40 PT/INR, D-dimer PT 11.6 sec (9.0-12.0) 03/31/17 22:40 INR 1.2 (<1.2) H 03/31/17 22:40 Abnormal lab findings: Abnormal Labs 03/31/17 03/31/17 03/31/17 22:40 22:40 22:40 Lymphocytes # 0.7 L INR 1.2 H Sodium 135 L BUN 18 H Glucose 141 H AST 51 H ALT 94 H Alkaline Phosphatase 216 H Albumin 3.4 L - Diagnostic Findings Chest x-ray: image reviewed Assessment and Plan Plan: Impression: #1 Right basilar pneumonia secondary to aspiration of foreign body approximately 10 days prior to the subsequent removal on 03/28/2017. There was purulent secretions noted beyond the right lower lobe obstruction, bronchial washings reveal no bacterial growth thus far. The patient had been initiated on Augmentin on 03/28/2017. #2 Febrile illness secondary to above. #3 History of coronary disease with previous stent placement. #4 Hyperlipidemia. #5 Hypertension. #6 Osteoarthritis. Plan: The patient was seen and evaluated by Dr. Borjas. Her chest x-ray and labs were reviewed. We'll continue clindamycin for now. We'll continue with bronchodilators and Cough syrup as needed. Will increase her activity as tolerated. She is on heparin for DVT prophylaxis and Pepcid for GI prophylaxis. We'll continue to follow and make further recommendations based on her clinical status. Time with Patient: Greater than 30
[2017-04-01] MEDS: HEPARIN SODIUM,PORCINE 5,000 UNIT/ML 1 ML VIAL SQ SCH (15:58)
[2017-04-01] MEDS: ACETAMINOPHEN TAB 325 MG TAB PO PRN (19:59)
[2017-04-01] MEDS: ATORVASTATIN 20 MG TAB PO SCH (20:03)
[2017-04-01] MEDS: MELATONIN 3 MG TABLET PO SCH (21:59)
[2017-04-02] MEDS: CLINDAMYCIN 600 MG in DEXTROSE 5% IN WATER 50 ML IVPB SCH ×6 (00:40→16:57)
[2017-04-02] MEDS: HEPARIN SODIUM,PORCINE 5,000 UNIT/ML 1 ML VIAL SQ SCH ×3 (00:41→15:54)
[2017-04-02] MEDS: SODIUM CHLORIDE 0.9% 1,000 ML IV SCH ×2 (04:39→18:42)
[2017-04-02] MEDS: LISINOPRIL 20 MG TAB PO SCH (07:52)
[2017-04-02] MEDS: ASCORBIC ACID 500 MG TAB PO SCH (07:53)
[2017-04-02] MEDS: ATENOLOL 25 MG TAB PO SCH (07:53)
[2017-04-02] MEDS: FAMOTIDINE 20 MG TAB PO SCH (07:53)
[2017-04-02] MEDS: CALCIUM CARBONATE 500 MG CHEWABLE PO SCH (07:53)
[2017-04-02] MEDS: CYANOCOBALAMIN 500 MCG TAB PO SCH (07:53)
--- NOTE | 2017-04-02 08:08 | XR ---
EXAMINATION TYPE: XR chest 2V DATE OF EXAM: 04/02/2017 COMPARISON: 03/31/2017 HISTORY: 86-year-old female follow-up pneumonia TECHNIQUE: Frontal and lateral views FINDINGS: Heart is upper limits of normal in size. Atherosclerotic calcifications within the aorta. Diffuse int erstitial prominence persists and there is increasing right greater than left bibasilar patchy opacit ies. No significant pleural effusion. IMPRESSION: 1. Worsening right greater than left bibasilar airspace disease. 2. Interstitial densities also appear slightly worsened. Correlate to exclude superimposed mild CHF.
[2017-04-02] MEDS ORDERED: FUROSEMIDE 10 MG/ML 2 ML VIAL IV ONE (13:21)
--- NOTE | 2017-04-02 13:58 | P.PN ---
Subjective This is a very pleasant 86-year-old female patient who follows with Dr. Stoner as her primary care physician. He has a history of coronary artery disease previous stent placement, hyperlipidemia hypertension, osteoarthritis. She is a lifelong nonsmoker. She had recently aspirated a gold crown estimated 10 days prior to her arriving to the emergency room on 03/27/2017. She initially thought she swallowed it. She had continued and ongoing cough the chest x-ray performed by her primary healthcare provider revealed hyperdense object in the right lung. Subsequently she had undergone a bronchoscopy by Dr. Maher on and the crown was removed from the right lower lobe bronchus. There was noted purulent secretions beyond the foreign body and a bronchial alveolar lavage was performed. She was discharged home the same day with Augmentin and Robitussin with codeine. Bronchial washings reported out on the revealed no growth. She reports presented here last evening with complaints of ongoing cough despite being on antibiotics and Robitussin. She also had developed fever. Her chest x-ray shows some atelectatic changes in the right lung base. She was admitted and initiated on clindamycin. She is seen today in consultation on the regular medical floor. She is awake and alert in no acute distress. Her cough has subsided. It is dry and nonproductive. She is maintaining good O2 saturations in the upper 90s on room air. She is afebrile. Hemodynamically stable. No tachycardia, no tachypnea, no leukocytosis. Influenza screen was negative. The patient is seen again today 04/02/2017 in follow-up on the regular medical floor. She is currently sitting up in the chair at the bedside. She is awake and alert in no acute distress. She continues with a dry nonproductive cough. She is breathing easier today as compared to yesterday. Chest x-ray does show increased pulmonary vascular congestion. Sputum culture is pending. Blood cultures reveal no growth. She is afebrile. She is maintaining O2 saturations in the 90s on room air. Objective - Vital Signs Vital signs: Vital Signs Temp 98.9 F 04/02/17 07:00 Pulse 75 04/02/17 08:00 Resp 16 04/02/17 08:00 BP 198/88 04/02/17 07:00 Pulse Ox 92 L 04/02/17 07:00 Intake & Output 04/01/17 04/02/17 04/02/17 18:59 06:59 18:59 Intake Total 750 800 Balance 750 800 Intake: Intake, IV Titration 750 800 Amount Clindamycin 600 mg In 50 Dextrose 5% in Water 50 ml @ 100 mls/hr IVPB Q8HR [facility] Rx#:[id number] Sodium Chloride 0.9% 1, 700 800 000 ml @ 100 mls/hr IV . Q10H [facility] Rx#:[id number] Other: Voiding Method Toilet Toilet # Voids 4 - Exam GENERAL EXAM: Alert, active, comfortable in no apparent distress. HEAD: Normocephalic. EYES: Normal reaction of pupils, equal size. NOSE: Clear with pink turbinates. THROAT: No erythema or exudates. NECK: No masses, no JVD. CHEST: No chest wall deformity. LUNGS: Equal air entry with crackles in the posterior bases more so on the right.. CVS: S1 and S2 normal with no audible murmurs, regular rhythm. ABDOMEN: No hepatosplenomegaly, normal bowel sounds, no guarding or rigidity. SPINE: No scoliosis or deformity SKIN: No rashes CENTRAL NERVOUS SYSTEM: No focal deficits, tone is normal in all 4 extremities. Extremities: There is no significant peripheral edema. No clubbing, no cyanosis. Peripheral pulses are intact. - Labs CBC & Chem 7: 03/31/17 22:40 03/31/17 22:40 Labs: Microbiology - Last 24 Hours (Table) 04/01/17 20:30 Gram Stain - Preliminary Sputum Sputum Culture - Preliminary 03/31/17 22:40 Blood Culture - Preliminary Blood No Growth after 24 hours Assessment and Plan Plan: Impression: #1 Right basilar pneumonia secondary to aspiration of foreign body approximately 10 days prior to the subsequent removal on 03/28/2017. There was purulent secretions noted beyond the right lower lobe obstruction, bronchial washings reveal no bacterial growth thus far. The patient had been initiated on Augmentin on 03/28/2017. Currently on clindamycin. Today she chest x-ray shows some evidence of fluid volume overload. She is given Lasix 20 mg IVP 1. #2 Febrile illness secondary to above. #3 History of coronary disease with previous stent placement. #4 Hyperlipidemia. #5 Hypertension. #6 Osteoarthritis. Plan: The patient was seen and evaluated by Dr. Borjas. Her chest x-ray was reviewed. Given Lasix 20 mg IVP 1. We'll continue clindamycin for now. We' ll continue with bronchodilators and Phenergan With Codeine as needed. Will increase her activity as tolerated. She is on heparin for DVT prophylaxis and Pepcid for GI prophylaxis. We'll continue to follow and make further recommendations based on her clinical status.
[2017-04-02] MEDS ORDERED: PIPERACILLIN-TAZOBACTAM 3.375 GM in DEXTROSE/WATER 1 50ML.BAG IVPB SCH (16:00)
[2017-04-02] MEDS ORDERED: ATENOLOL 25 MG TAB PO STA (20:47)
[2017-04-02] MEDS: ACETAMINOPHEN TAB 325 MG TAB PO PRN (20:51)
[2017-04-02] MEDS: ATORVASTATIN 20 MG TAB PO SCH (20:51)
[2017-04-02] MEDS: MELATONIN 3 MG TABLET PO SCH (20:51)
[2017-04-02] MEDS ORDERED: hydrALAZINE HCL 20 MG/ML 1 ML VIAL IVP PRN (21:47)
[2017-04-03] MEDS: SODIUM CHLORIDE 0.9% 1,000 ML IV SCH (00:15)
[2017-04-03] MEDS: cloNIDine HCL 0.1 MG TAB PO SCH ×5 (00:15→22:13)
[2017-04-03] MEDS: CLINDAMYCIN 600 MG in DEXTROSE 5% IN WATER 50 ML IVPB SCH ×6 (00:19→16:13)
[2017-04-03] MEDS: HEPARIN SODIUM,PORCINE 5,000 UNIT/ML 1 ML VIAL SQ SCH ×3 (00:19→16:16)
--- NOTE | 2017-04-03 00:22 | P.PN ---
Subjective Principal diagnosis: Aspiration pneumonia This is an 86-year-old female with a past medical history of hypertension presenting to emergency Department 2 days post bronchoscopy after a gold tooth cap was swallowed during a dental procedure done on last and then removed. She reports that she had a "blackout of her right lung". Patient states that she was discharged with Augmentin and Robitussin with codeine. She reports that despite taking the antibiotics and cough syrup she's had a worsening cough and has had fevers. She reports that she had Tylenol in the year. She states that her she does have some abdominal muscle pain due to the amount of coughing she's had. She didn't ports she's had some diarrhea today as well. Patient was given a dose of aztreonam in the emergency room and was started on clindamycin at this time. Patient has been afebrile since this morning. No complaints of chest pain or short of breath. 04/02/2017 She is currently sitting up in the chair at the bedside. She is awake and alert in no acute distress. She continues with a dry nonproductive cough. Breathing status improved. Chest x-ray does show increased pulmonary vascular congestion. Sputum culture is pending. Blood cultures reveal no growth. She is afebrile. She is maintaining O2 saturations in the 90s on room air. Objective - Vital Signs Vital signs: Vital Signs Temp 99.0 F 04/02/17 20:40 Pulse 97 04/02/17 21:24 Resp 16 04/02/17 21:24 BP 193/90 04/02/17 20:40 Pulse Ox 93 L 04/02/17 20:40 Intake & Output 04/02/17 04/02/17 04/03/17 06:59 18:59 06:59 Intake Total 800 50 120 Balance 800 50 120 Intake: Intake, IV Titration 800 50 Amount Clindamycin 600 mg In 50 Dextrose 5% in Water 50 ml @ 100 mls/hr IVPB Q8HR [facility] Rx#:[id number] Sodium Chloride 0.9% 1, 800 000 ml @ 10 mls/hr IV . Q24H [facility] Rx#:[id number] Oral 120 Other: Voiding Method Toilet Toilet Toilet # Voids 4 1 - Exam PHYSICAL EXAMINATION: Patient is lying in the bed comfortably, no acute distress, awake alert and oriented.. HEENT: Normocephalic. Neck is supple. Pupils reactive. Nostrils clear. Oral cavity is moist. Ears reveal no drainage. Neck reveals no JVD, carotid bruits, or thyromegaly. CHEST EXAMINATION: Trachea is central. Symmetrical expansion. Right basilar crackles positive. no wheezing CARDIAC: Normal S1, S2 with no gallops. No murmurs ABDOMEN: Soft. Bowel sounds normal. No organomegaly. No abdominal bruits. Extremities reveal no edema. No clubbing or cyanosis Neurologically awake, alert, oriented x3 with well-coordinated movements. Skin: no rash or skin lesions Musculoskeletal: no joint swelling or deformity. - Labs CBC & Chem 7: 03/31/17 22:40 03/31/17 22:40 Labs: Microbiology - Last 24 Hours (Table) 04/01/17 20:30 Gram Stain - Preliminary Sputum Sputum Culture - Preliminary 03/31/17 22:40 Blood Culture - Preliminary Blood No Growth after 24 hours Assessment and Plan Plan: #1 sepsis secondary to right lower lobe pneumonia. Likely due to aspiration. Patient was febrile and tachycardic. #2 recent bronchoscopy due to swallowed tooth While doing dental procedure #3 history of coronary artery disease with stenting #4 hypertension #5 hyperlipidemia #6 history of [place] Plan. Patient will be continued on antibiotics in the form of clindamycin IV. Patient was given a dose of aztreonam while in the ER. Patient has been afebrile since last night. We will encourage deep breathing exercises and follow closely. Continue the home medications. Heparin subcu for DVT prophylaxis. Pulmonary following Patient was given a dose of Lasix due to pulmonary vascular congestion.
[2017-04-03] MEDS: IPRATROPIUM-ALBUTEROL 3 ML NEB INHALATION PRN (07:48)
[2017-04-03 08:16] LABS: Basophils % (A) 0 %; CH 32.1; CHCM 33.9; Eosinophils # (A) 0.1 k/uL (0-0.7); Eosinophils % (A) 2 %; HCT 35.5 % (34.0-46.0); HDW 2.98; HGB 11.5 gm/dL (11.4-16.0); Luc # (Auto) 0.13; Luc % (Auto) 2; Lymphocytes # (A) 0.9 k/uL (1.0-4.8); Lymphocytes % (A) 14 %; MCHC 32.5 g/dL (31.0-37.0); MCV 95.3 fL (80.0-100.0); Mean Platelet Volume 7.2; Monocytes # (A) 0.4 k/uL (0-1.0); Monocytes % (A) 6 %; Neutrophils # (A) 4.5 k/uL (1.3-7.7); Neutrophils % (A) 75 %; RBC 3.72 m/uL (3.80-5.40); RDW 13.8 % (11.5-15.5)
[2017-04-03 08:25] LABS: Anion Gap 7 mmol/L; Blood Urea Nitrogen 14 mg/dL (7-17); Calcium 8.2 mg/dL (8.4-10.2); Carbon Dioxide 25 mmol/L (22-30); Chloride 104 mmol/L (98-107); Glucose 95 mg/dL (74-99); Non-African American GFR(MDRD) 55 (>60 ml/min/1.73 sqM); Potassium 3.9 mmol/L (3.5-5.1); Sodium 136 mmol/L (137-145)
[2017-04-03] MEDS: LISINOPRIL 20 MG TAB PO SCH (08:57)
[2017-04-03] MEDS: FAMOTIDINE 20 MG TAB PO SCH (08:59)
[2017-04-03] MEDS: ASCORBIC ACID 500 MG TAB PO SCH (09:00)
[2017-04-03] MEDS: CYANOCOBALAMIN 500 MCG TAB PO SCH (09:01)
[2017-04-03] MEDS: CALCIUM CARBONATE 500 MG CHEWABLE PO SCH (09:01)
[2017-04-03] MEDS: ATENOLOL 25 MG TAB PO SCH (09:51)
--- NOTE | 2017-04-03 10:27 | P.PN ---
Subjective This is a very pleasant 86-year-old female patient who follows with Dr. Stoner as her primary care physician. He has a history of coronary artery disease previous stent placement, hyperlipidemia hypertension, osteoarthritis. She is a lifelong nonsmoker. She had recently aspirated a gold crown estimated 10 days prior to her arriving to the emergency room on 03/27/2017. She initially thought she swallowed it. She had continued and ongoing cough the chest x-ray performed by her primary healthcare provider revealed hyperdense object in the right lung. Subsequently she had undergone a bronchoscopy by Dr. Maher on and the crown was removed from the right lower lobe bronchus. There was noted purulent secretions beyond the foreign body and a bronchial alveolar lavage was performed. She was discharged home the same day with Augmentin and Robitussin with codeine. Bronchial washings reported out on the revealed no growth. She reports presented here last evening with complaints of ongoing cough despite being on antibiotics and Robitussin. She also had developed fever. Her chest x-ray shows some atelectatic changes in the right lung base. She was admitted and initiated on clindamycin. She is seen today in consultation on the regular medical floor. She is awake and alert in no acute distress. Her cough has subsided. It is dry and nonproductive. She is maintaining good O2 saturations in the upper 90s on room air. She is afebrile. Hemodynamically stable. No tachycardia, no tachypnea, no leukocytosis. Influenza screen was negative. The patient is seen again today 04/02/2017 in follow-up on the regular medical floor. She is currently sitting up in the chair at the bedside. She is awake and alert in no acute distress. She continues with a dry nonproductive cough. She is breathing easier today as compared to yesterday. Chest x-ray does show increased pulmonary vascular congestion. Sputum culture is pending. Blood cultures reveal no growth. She is afebrile. She is maintaining O2 saturations in the 90s on room air. The patient is seen again today 04/03/2017 in follow-up on the regular medical floor. She is currently resting quite comfortably in bed. She states that her cough has subsided. She is maintaining good O2 saturations in the 90s on room air. She is somewhat dyspneic with exertion however. She did diurese well following the 20 mg of IV Lasix yesterday. Creatinine stable at 0.96. There is no leukocytosis. No fever chills or night sweats. She remains on clindamycin. Objective - Vital Signs Vital signs: Vital Signs Temp 97.9 F 04/03/17 07:00 Pulse 96 04/03/17 07:59 Resp 16 04/03/17 07:00 BP 139/72 04/03/17 07:00 Pulse Ox 91 L 04/03/17 07:00 Intake & Output 04/02/17 04/03/17 04/03/17 18:59 06:59 18:59 Intake Total 50 420 Balance 50 420 Intake: Intake, IV Titration 50 100 Amount Clindamycin 600 mg In 50 Dextrose 5% in Water 50 ml @ 100 mls/hr IVPB Q8HR LOIS Rx#:[id number] Sodium Chloride 0.9% 1, 100 000 ml @ 10 mls/hr IV . Q24H LOIS Rx#:[id number] Oral 320 Other: Voiding Method Toilet Toilet # Voids 1 - Exam GENERAL EXAM: Alert, active, comfortable in no apparent distress. HEAD: Normocephalic. EYES: Normal reaction of pupils, equal size. NOSE: Clear with pink turbinates. THROAT: No erythema or exudates. NECK: No masses, no JVD. CHEST: No chest wall deformity. LUNGS: Equal air entry with crackles in the posterior bases more so on the right.. CVS: S1 and S2 normal with no audible murmurs, regular rhythm. ABDOMEN: No hepatosplenomegaly, normal bowel sounds, no guarding or rigidity. SPINE: No scoliosis or deformity SKIN: No rashes CENTRAL NERVOUS SYSTEM: No focal deficits, tone is normal in all 4 extremities. Extremities: There is no significant peripheral edema. No clubbing, no cyanosis. Peripheral pulses are intact. - Labs CBC & Chem 7: 04/03/17 07:38 04/03/17 07:38 Labs: Abnormal Lab Results - Last 24 Hours (Table) 04/03/17 04/03/17 Range/Units 07:38 07:38 RBC 3.72 L (3.80-5.40) m/uL Lymphocytes # 0.9 L (1.0-4.8) k/uL Sodium 136 L (137-145) mmol/L Calcium 8.2 L (8.4-10.2) mg/dL Microbiology - Last 24 Hours (Table) 03/31/17 22:40 Blood Culture - Preliminary Blood No Growth after 48 hours Assessment and Plan Plan: Impression: #1 Right basilar pneumonia secondary to aspiration of foreign body approximately 10 days prior to the subsequent removal on 03/28/2017. There was purulent secretions noted beyond the right lower lobe obstruction, bronchial washings reveal no bacterial growth thus far. The patient had been initiated on Augmentin on 03/28/2017. Currently on clindamycin. Yesterday's chest x-ray showed some evidence of fluid volume overload. She was given Lasix 20 mg IVP 1. #2 Febrile illness secondary to above, recovered. #3 History of coronary disease with previous stent placement. #4 Hyperlipidemia. #5 Hypertension. #6 Osteoarthritis. Plan: The patient was seen and evaluated by Dr. Borjas. Follow-up chest x-ray pending. Sputum culture pending. She did diurese following the Lasix yesterday. We'll continue clindamycin for now. Will increase her activity as tolerated. We'll continue to follow and make further recommendations based on her clinical status.
[2017-04-03] MEDS ORDERED: FUROSEMIDE 10 MG/ML 2 ML VIAL IV ONE (12:31)
--- NOTE | 2017-04-03 13:02 | XR ---
EXAMINATION TYPE: XR chest 1V portable DATE OF EXAM: 04/03/2017 HISTORY: Shortness of breath. COMPARISON: None. TECHNIQUE: Single view of the chest is submitted. FINDINGS: Demonstrated are scattered senescent parenchymal change. There is persistent but improving right lower lobe infiltrate. The heart is stable. Hilar and mediastinal structures are within normal limits. Degenerative changes are seen of the dorsal spine. IMPRESSION: 1. There is persistent but improving right lower lobe infiltrate.
[2017-04-03] MEDS: ATORVASTATIN 20 MG TAB PO SCH (20:12)
[2017-04-03] MEDS: MELATONIN 3 MG TABLET PO SCH (20:12)
[2017-04-03 21:39] VITALS: RESP 16
[2017-04-04] MEDS: SODIUM CHLORIDE 0.9% 1,000 ML IV SCH (00:19)
[2017-04-04] MEDS: CLINDAMYCIN 600 MG in DEXTROSE 5% IN WATER 50 ML IVPB SCH ×4 (00:19→08:53)
[2017-04-04] MEDS: HEPARIN SODIUM,PORCINE 5,000 UNIT/ML 1 ML VIAL SQ SCH ×2 (00:20→08:54)
--- NOTE | 2017-04-04 02:05 | P.PN ---
Subjective Principal diagnosis: Aspiration pneumonia This is an 86-year-old female with a past medical history of hypertension presenting to emergency Department 2 days post bronchoscopy after a gold tooth cap was swallowed during a dental procedure done on last and then removed. She reports that she had a "blackout of her right lung". Patient states that she was discharged with Augmentin and Robitussin with codeine. She reports that despite taking the antibiotics and cough syrup she's had a worsening cough and has had fevers. She reports that she had Tylenol in the year. She states that her she does have some abdominal muscle pain due to the amount of coughing she's had. She didn't ports she's had some diarrhea today as well. Patient was given a dose of aztreonam in the emergency room and was started on clindamycin at this time. Patient has been afebrile since this morning. No complaints of chest pain or short of breath. 04/02/2017 She is currently sitting up in the chair at the bedside. She is awake and alert in no acute distress. She continues with a dry nonproductive cough. Breathing status improved. Chest x-ray does show increased pulmonary vascular congestion. Sputum culture is pending. Blood cultures reveal no growth. She is afebrile. She is maintaining O2 saturations in the 90s on room air. 04/03/2017 Patient is currently sitting up with a comfortably. Repeat chest x-ray today showed persistent but right lower lobe infiltrates improving. Patient has been afebrile. Anticipated discharge in next 24 hours. Objective - Vital Signs Vital signs: Vital Signs Temp 98.3 F 04/03/17 20:45 Pulse 72 04/03/17 20:45 Resp 16 04/03/17 20:45 BP 148/68 04/03/17 20:45 Pulse Ox 95 04/03/17 20:45 Intake & Output 04/03/17 04/03/17 04/04/17 06:59 18:59 06:59 Intake Total 420 120 Balance 420 120 Weight 68.03 kg Intake: Intake, IV Titration 100 120 Amount Sodium Chloride 0.9% 1, 100 120 000 ml @ 10 mls/hr IV . Q24H LOIS Rx#:[id number] Oral 320 Other: Voiding Method Toilet # Voids 1 1 - Exam PHYSICAL EXAMINATION: Patient is lying in the bed comfortably, no acute distress, awake alert and oriented.. HEENT: Normocephalic. Neck is supple. Pupils reactive. Nostrils clear. Oral cavity is moist. Ears reveal no drainage. Neck reveals no JVD, carotid bruits, or thyromegaly. CHEST EXAMINATION: Trachea is central. Symmetrical expansion. Right basilar crackles positive. no wheezing CARDIAC: Normal S1, S2 with no gallops. No murmurs ABDOMEN: Soft. Bowel sounds normal. No organomegaly. No abdominal bruits. Extremities reveal no edema. No clubbing or cyanosis Neurologically awake, alert, oriented x3 with well-coordinated movements. Skin: no rash or skin lesions Musculoskeletal: no joint swelling or deformity. - Labs CBC & Chem 7: 04/03/17 07:38 04/03/17 07:38 Labs: Abnormal Lab Results - Last 24 Hours (Table) 04/03/17 04/03/17 Range/Units 07:38 07:38 RBC 3.72 L (3.80-5.40) m/uL Lymphocytes # 0.9 L (1.0-4.8) k/uL Sodium 136 L (137-145) mmol/L Calcium 8.2 L (8.4-10.2) mg/dL Microbiology - Last 24 Hours (Table) 03/31/17 22:40 Blood Culture - Preliminary Blood No Growth after 48 hours Assessment and Plan Plan: #1 sepsis secondary to right lower lobe pneumonia. Likely due to aspiration. Patient was febrile and tachycardic. #2 recent bronchoscopy due to swallowed tooth While doing dental procedure #3 history of coronary artery disease with stenting #4 hypertension #5 hyperlipidemia #6 history of [place] Plan. Patient will be continued on antibiotics in the form of clindamycin IV. Patient was given a dose of aztreonam while in the ER. Patient has been afebrile. encourage deep breathing exercises and follow closely. Continue the home medications. Heparin subcu for DVT prophylaxis. Pulmonary following Patient was given a dose of Lasix on 04/02 due to pulmonary vascular congestion. Patient did improve clinically now.
[2017-04-04 07:38] VITALS: BP 125/60; PULSE 69; TEMP 98.1
[2017-04-04] MEDS: LISINOPRIL 20 MG TAB PO SCH (08:54)
[2017-04-04] MEDS: CYANOCOBALAMIN 500 MCG TAB PO SCH (08:54)
[2017-04-04] MEDS: ATENOLOL 25 MG TAB PO SCH (08:54)
[2017-04-04] MEDS: ASCORBIC ACID 500 MG TAB PO SCH (08:54)
[2017-04-04] MEDS: FAMOTIDINE 20 MG TAB PO SCH (08:54)
[2017-04-04] MEDS: cloNIDine HCL 0.1 MG TAB PO SCH ×2 (08:54→13:32)
[2017-04-04] MEDS: CALCIUM CARBONATE 500 MG CHEWABLE PO SCH (08:54)
--- NOTE | 2017-04-04 12:16 | P.PN ---
Subjective This is a very pleasant 86-year-old female patient who follows with Dr. Stoner as her primary care physician. He has a history of coronary artery disease previous stent placement, hyperlipidemia hypertension, osteoarthritis. She is a lifelong nonsmoker. She had recently aspirated a gold crown estimated 10 days prior to her arriving to the emergency room on 03/27/2017. She initially thought she swallowed it. She had continued and ongoing cough the chest x-ray performed by her primary healthcare provider revealed hyperdense object in the right lung. Subsequently she had undergone a bronchoscopy by Dr. Maher on and the crown was removed from the right lower lobe bronchus. There was noted purulent secretions beyond the foreign body and a bronchial alveolar lavage was performed. She was discharged home the same day with Augmentin and Robitussin with codeine. Bronchial washings reported out on the revealed no growth. She reports presented here last evening with complaints of ongoing cough despite being on antibiotics and Robitussin. She also had developed fever. Her chest x-ray shows some atelectatic changes in the right lung base. She was admitted and initiated on clindamycin. She is seen today in consultation on the regular medical floor. She is awake and alert in no acute distress. Her cough has subsided. It is dry and nonproductive. She is maintaining good O2 saturations in the upper 90s on room air. She is afebrile. Hemodynamically stable. No tachycardia, no tachypnea, no leukocytosis. Influenza screen was negative. The patient is seen again today 04/02/2017 in follow-up on the regular medical floor. She is currently sitting up in the chair at the bedside. She is awake and alert in no acute distress. She continues with a dry nonproductive cough. She is breathing easier today as compared to yesterday. Chest x-ray does show increased pulmonary vascular congestion. Sputum culture is pending. Blood cultures reveal no growth. She is afebrile. She is maintaining O2 saturations in the 90s on room air. The patient is seen again today 04/03/2017 in follow-up on the regular medical floor. She is currently resting quite comfortably in bed. She states that her cough has subsided. She is maintaining good O2 saturations in the 90s on room air. She is somewhat dyspneic with exertion however. She did diurese well following the 20 mg of IV Lasix yesterday. Creatinine stable at 0.96. There is no leukocytosis. No fever chills or night sweats. She remains on clindamycin. The patient is seen again today 04/04/2017 in follow-up on the regular medical floor. She is awake and alert in no acute distress. She is feeling nearly back to her baseline. She denies any worsening cough, congestion. No chills or night sweats. No shortness of breath. She is afebrile. Maintaining O2 saturations in the 90s on room air. Objective - Vital Signs Vital signs: Vital Signs Temp 98.1 F 04/04/17 07:00 Pulse 69 04/04/17 08:00 Resp 16 04/04/17 08:00 BP 125/60 04/04/17 07:00 Pulse Ox 91 L 04/04/17 07:00 Intake & Output 04/03/17 04/04/17 04/04/17 18:59 06:59 18:59 Intake Total 120 230 Balance 120 230 Weight 68.03 kg Intake: Intake, IV Titration 120 130 Amount Clindamycin 600 mg In 50 Dextrose 5% in Water 50 ml @ 100 mls/hr IVPB Q8HR LOIS Rx#:[id number] Sodium Chloride 0.9% 1, 120 80 000 ml @ 10 mls/hr IV . Q24H LOIS Rx#:[id number] Oral 100 Other: Voiding Method Toilet Toilet # Voids 1 2 - Exam GENERAL EXAM: Alert, active, comfortable in no apparent distress. HEAD: Normocephalic. EYES: Normal reaction of pupils, equal size. NOSE: Clear with pink turbinates. THROAT: No erythema or exudates. NECK: No masses, no JVD. CHEST: No chest wall deformity. LUNGS: Equal air entry with no crackles wheezes or rhonchi. CVS: S1 and S2 normal with no audible murmurs, regular rhythm. ABDOMEN: No hepatosplenomegaly, normal bowel sounds, no guarding or rigidity. SPINE: No scoliosis or deformity SKIN: No rashes CENTRAL NERVOUS SYSTEM: No focal deficits, tone is normal in all 4 extremities. Extremities: There is no significant peripheral edema. No clubbing, no cyanosis. Peripheral pulses are intact. - Labs CBC & Chem 7: 04/03/17 07:38 04/03/17 07:38 Labs: Microbiology - Last 24 Hours (Table) 04/01/17 20:30 Gram Stain - Final Sputum Sputum Culture - Final Tonja albicans 03/31/17 22:40 Blood Culture - Preliminary Blood No Growth after 72 hours Assessment and Plan Plan: Impression: #1 Right basilar pneumonia secondary to aspiration of foreign body approximately 10 days prior to the subsequent removal on 03/28/2017. There was purulent secretions noted beyond the right lower lobe obstruction, bronchial washings reveal no bacterial growth thus far. The patient had been initiated on Augmentin on 03/28/2017. Currently on clindamycin. Yesterday's chest x-ray showed some evidence of fluid volume overload. She was given Lasix 20 mg IVP 1. Follow-up chest x-ray showed improvement. #2 Febrile illness secondary to above, recovered. #3 History of coronary disease with previous stent placement. #4 Hyperlipidemia. #5 Hypertension. #6 Osteoarthritis. Plan: The patient was seen and evaluated by Dr. Borjas. She did diurese following the Lasix. Follow-up chest x-ray did show improvement. She is cleared for discharge from the pulmonary standpoint. She'll complete a course of Augmentin. She'll follow-up in our office in 1-2 weeks' time. We'll repeat a chest x-ray then. She and her are both encouraged to call sooner with any recurrence of symptoms or other questions or concerns.
--- NOTE | 2017-04-06 01:18 | P.DS ---
Providers Date of admission: 04/01/17 01:31 Expected date of discharge: 04/04/17 Attending physician: Freddie Woodall Consults: 04/01/17 00:34 Consult Physician Stat Consulting Provider: Tito Maher Consult Reason/Comments: Aspiration Pneumonia, Post Bronchoscopy Do you want consulting provider notified?: Yes, Notify in am Primary care physician: Reji Stoner Hospital Course: Discharge diagnosis #1 sepsis secondary to right lower lobe pneumonia. Likely due to aspiration. Patient was febrile and tachycardic. #2 recent bronchoscopy due to swallowed tooth While doing dental procedure #3 history of coronary artery disease with stenting #4 hypertension #5 hyperlipidemia #6 history of [place] Hospital course This is an 86-year-old female with a past medical history of hypertension presenting to emergency Department 2 days post bronchoscopy after a gold tooth cap was swallowed during a dental procedure done on last and then removed. She reports that she had a "blackout of her right lung". Patient states that she was discharged with Augmentin and Robitussin with codeine. She reports that despite taking the antibiotics and cough syrup she's had a worsening cough and has had fevers. She reports that she had Tylenol in the year. She states that her she does have some abdominal muscle pain due to the amount of coughing she's had. She didn't ports she's had some diarrhea today as well. Patient was given a dose of aztreonam in the emergency room and was started on clindamycin at this time. Patient has been afebrile since this morning. No complaints of chest pain or short of breath. 04/02/2017 She is currently sitting up in the chair at the bedside. She is awake and alert in no acute distress. She continues with a dry nonproductive cough. Breathing status improved. Chest x-ray does show increased pulmonary vascular congestion. Sputum culture is pending. Blood cultures reveal no growth. She is afebrile. She is maintaining O2 saturations in the 90s on room air. 04/03/2017 Patient is currently sitting up with a comfortably. Repeat chest x-ray today showed persistent but right lower lobe infiltrates improving. Patient has been afebrile. Anticipated discharge in next 24 hours. 04/04/2017 Patient is more comfortable. Denied any complaints of chest pressure of breath. Anxious to go home and no fever no chills no acute overnight issues Patient was continued on antibiotics in the form of clindamycin IV. Patient was given a dose of aztreonam while in the ER. Patient has been afebrile last 3 days. encourage deep breathing exercises and followed closely. Continued the home medications. Heparin subcu for DVT prophylaxis. Pulmonary is seeing the patient. Patient was given a dose of Lasix due to pulmonary vascular congestion yesterday with more clinical improvement. Patient is currently saturating well on room air and is stable for discharge home and continue antibiotics in the form of Augmentin for next 5 more days. PHYSICAL EXAMINATION: Patient is lying in the bed comfortably, no acute distress, awake alert and oriented.. HEENT: Normocephalic. Neck is supple. Pupils reactive. Nostrils clear. Oral cavity is moist. Ears reveal no drainage. Neck reveals no JVD, carotid bruits, or thyromegaly. CHEST EXAMINATION: Trachea is central. Symmetrical expansion. Lung childers clear to auscultation and percussion. CARDIAC: Normal S1, S2 with no gallops. No murmurs ABDOMEN: Soft. Bowel sounds normal. No organomegaly. No abdominal bruits. Extremities reveal no edema. No clubbing or cyanosis Neurologically awake, alert, oriented x3 with well-coordinated movements. Skin: no rash or skin lesions Musculoskeletal: no joint swelling or deformity. Patient Condition at Discharge: Stable Plan - Discharge Summary New Discharge Prescriptions: Continue Cyanocobalamin [Vitamin B-12] 500 mcg PO DAILY Meservey-3 Fatty Acids/Fish Oil [Fish Oil 1,000 mg Softgel] 1 cap PO DAILY Calcium Carbonate [Calcium] 600 mg PO DAILY Ascorbic Acid [Vitamin C] 1,000 mg PO DAILY Simvastatin [Zocor] 40 mg PO HS Lisinopril [Prinivil] 20 mg PO DAILY Atenolol 25 mg PO DAILY Nasanel Nose Drops 1 drop EA NOSTRIL DAILY PRN PRN Reason: Allergy Symptoms Glucosam/Coleman-Msm1/C/Regino/Bosw [Glucosamine-Chondroitin Tablet] 1 tab PO DAILY guaiFENesin-Coden 100-10MG/5ML [Robitussin AC] 5 - 10 ml PO Q6HR PRN PRN Reason: Cough Amoxic-Pot Clav 875-125Mg [Augmentin 875-125] 1 tab PO Q12HR Discharge Medication List Ascorbic Acid [Vitamin C] 1,000 mg PO DAILY 03/27/17 [History] Atenolol 25 mg PO DAILY 03/27/17 [History] Calcium Carbonate [Calcium] 600 mg PO DAILY 03/27/17 [History] Cyanocobalamin [Vitamin B-12] 500 mcg PO DAILY 03/27/17 [History] Glucosam/Coleman-Msm1/C/Regino/Bosw [Glucosamine-Chondroitin Tablet] 1 tab PO DAILY 03/27/17 [History] Lisinopril [Prinivil] 20 mg PO DAILY 03/27/17 [History] Nasanel Nose Drops 1 drop EA NOSTRIL DAILY PRN 03/27/17 [History] Meservey-3 Fatty Acids/Fish Oil [Fish Oil 1,000 mg Softgel] 1 cap PO DAILY [History] Simvastatin [Zocor] 40 mg PO HS 03/27/17 [History] Amoxic-Pot Clav 875-125Mg [Augmentin 875-125] 1 tab PO Q12HR 03/31/17 [History] guaiFENesin-Coden 100-10MG/5ML [Robitussin AC] 5 - 10 ml PO Q6HR PRN 03/31/17 [ History] Follow up Appointment(s)/Referral(s): Edita Borjas MD [STAFF PHYSICIAN] - 04/16/17 9:00 am Reji Stoner MD [Primary Care Provider] - 04/08/17 10:00 am Patient Instructions/Handouts: Aspiration Pneumonia (DC), Acute Cough (GEN) Discharge Disposition: HOME SELF-CARE
== END 2017-04-04 13:50 | disposition home or self-care (01) | DRG 871 ==
LOC: EC 20:32 → 5MS5E 04-01 01:31
PROVIDERS: ADMIT Hospitalist; ATTEND Hospitalist
DX: A41.9 Sepsis, unspecified organism (principal); J69.0 Pneumonitis due to inhalation of food and vomit; E87.70 Fluid overload, unspecified; I25.2 Old myocardial infarction; I10 Essential (primary) hypertension; T17.59 Other foreign object in bronchus; I25.10 Atherosclerotic heart disease of native coronary artery without angina pectoris; R06.2 Wheezing; R19.7 Diarrhea, unspecified; E78.5 Hyperlipidemia, unspecified; M79.1 Myalgia; R00.0 Tachycardia, unspecified; M19.90 Unspecified osteoarthritis, unspecified site; Z95.5 Presence of coronary angioplasty implant and graft; Z82.49 Family history of ischemic heart disease and other diseases of the circulatory system; Z79.899 Other long term (current) drug therapy; Z87.01 Personal history of pneumonia (recurrent); Z98.818 Other dental procedure status
CPT/HCPCS: 36415; 71010; 71020; 80048; 80053; 83605; 83735; 85025; 85610; 85730; 87040; 87070; 87205; 87502; 94640; 96361; 96365; 99285

== ENCOUNTER 2018-04-18 20:26 | Inpatient (IN) | payer MEDICARE ==
[2018-04-18] MEDS ORDERED: ASPIRIN 81 MG PO STA (20:35)
[2018-04-18] MEDS ORDERED: SODIUM CHLORIDE 0.9% 1,000 ML IV STA (20:35)
[2018-04-18] MEDS ORDERED: NITROGLYCERIN SL TABS 0.4 MG TAB SUBLINGUAL STA (20:35)
--- NOTE | 2018-04-18 20:38 | ED ---
General Adult HPI - General Chief complaint: Chest Pain Stated complaint: Chest Pain Time Seen by Provider: 04/18/18 20:35 Source: patient, EMS, RN notes reviewed, old records reviewed Mode of arrival: EMS - History of Present Illness Initial comments: This is a 7-year-old female the ER complaining of chest pain today. Patient has a history of SD history of stent placement. Patient complaining of left- sided central chest pain mild swelling and reminds her of her prior SD causing stent placement. Patient states pain started yesterday but is been episodic in his continued throughout the day. No modifying factors for pain currently - Related Data Home Medications Medication Instructions Recorded Confirmed Ascorbic Acid [Vitamin C] 1,000 mg PO DAILY 03/27/17 03/31/17 Atenolol 25 mg PO DAILY 03/27/17 03/31/17 Calcium Carbonate [Calcium] 600 mg PO DAILY 03/27/17 03/31/17 Cyanocobalamin [Vitamin B-12] 500 mcg PO DAILY 03/27/17 03/31/17 Glucosam/Coleman-Msm1/C/Regino/Bosw 1 tab PO DAILY 03/27/17 03/31/17 [Glucosamine-Chondroitin Tablet] Lisinopril [Prinivil] 20 mg PO DAILY 03/27/17 03/31/17 Nasanel Nose Drops 1 drop EA NOSTRIL DAILY PRN 03/27/17 03/31/17 [place]-3 Fatty Acids/Fish Oil [Fish 1 cap PO DAILY 03/27/17 03/31/17 Oil 1,000 mg Softgel] Simvastatin [Zocor] 40 mg PO HS 03/27/17 03/31/17 Amoxic-Pot Clav 875-125Mg 1 tab PO Q12HR 03/31/17 03/31/17 [Augmentin 875-125] guaiFENesin-Coden 100-10MG/5ML 5 - 10 ml PO Q6HR PRN 03/31/17 03/31/17 [Robitussin AC] Allergies Allergy/AdvReac Type Severity Reaction Status Date / Time No Known Allergies Allergy Verified 03/31/17 21:47 Review of Systems ROS Statement: Those systems with pertinent positive or pertinent negative responses have been documented in the HPI. ROS Other: All systems not noted in ROS Statement are negative. Past Medical History Past Medical History: Coronary Artery Disease (CAD), Chest Pain / Angina, Hyperlipidemia, Myocardial Infarction (SD), Pneumonia Additional Past Medical History / Comment(s): Coronary artery disease with a previous history of coronary intervention and stenting, hypertension, hyperlipidemia, osteoarthritis. Last Myocardial Infarction Date:: unk History of Any Multi-Drug Resistant Organisms: None Reported Past Surgical History: Heart Catheterization With Stent Past Anesthesia/Blood Transfusion Reactions: No Reported Reaction Date of Last Stent Placement:: unk Past Psychological History: No Psychological Hx Reported Smoking Status: Never smoker Past Alcohol Use History: None Reported Past Drug Use History: None Reported - Past Family History Mother Family Medical History: Hyperlipidemia, Hypertension General Exam General appearance: alert, in no apparent distress Head exam: Present: atraumatic, normocephalic, normal inspection Eye exam: Present: normal appearance, PERRL, EOMI. Absent: scleral icterus, conjunctival injection, periorbital swelling ENT exam: Present: normal exam, mucous membranes moist Neck exam: Present: normal inspection. Absent: tenderness, meningismus, lymphadenopathy Respiratory exam: Present: normal lung sounds bilaterally. Absent: respiratory distress, wheezes, rales, rhonchi, stridor Cardiovascular Exam: Present: regular rate, normal rhythm, normal heart sounds. Absent: systolic murmur, diastolic murmur, rubs, gallop, clicks GI/Abdominal exam: Present: soft, normal bowel sounds. Absent: distended, tenderness, guarding, rebound, rigid Extremities exam: Present: normal inspection, full ROM, normal capillary refill. Absent: tenderness, pedal edema, joint swelling, calf tenderness Back exam: Present: normal inspection Neurological exam: Present: alert, oriented X3, CN II-XII intact Psychiatric exam: Present: normal affect, normal mood Skin exam: Present: warm, dry, intact, normal color. Absent: rash Course Vital Signs 04/18/18 04/18/18 04/18/18 20:27 21:05 21:20 Temperature 98.1 F Pulse Rate 83 77 65 Respiratory 16 16 16 Rate Blood Pressure 213/101 175/81 123/56 O2 Sat by Pulse 92 L 92 L 72 L Oximetry 04/18/18 21:21 Temperature Pulse Rate 72 Respiratory 16 Rate Blood Pressure 227/88 O2 Sat by Pulse 95 Oximetry - Reevaluation(s) Reevaluation #1: 04/18/18 21:40 Medical record is reviewed Reevaluation #2: 04/18/18 21:40 Patient is having persisting current chest pain EKG Findings - EKG Comments: EKG Findings:: EKG shows sinus rhythm rate of 78, MT 170, QRS 70, QTc 456 Medical Decision Making - Medical Decision Making 87 female the ER positive chest pain chest pain just like prior SD. Patient has elevated troponin will be started on heparin, patient be admitted for cardiac evaluation and treatment - Lab Data Result diagrams: 04/18/18 20:28 04/18/18 20:28 Lab Results 04/18/18 04/18/18 04/18/18 Range/Units 20:28 20:28 20:28 WBC 6.7 (3.8-10.6) k/uL RBC 4.44 (3.80-5.40) m/uL Hgb 13.7 (11.4-16.0) gm/dL Hct 42.4 (34.0-46.0) % MCV 95.4 (80.0-100.0) fL MCH 30.9 (25.0-35.0) pg MCHC 32.4 (31.0-37.0) g/dL RDW 14.4 (11.5-15.5) % Plt Count 167 (150-450) k/uL Neutrophils % 45 % Lymphocytes % 39 % Monocytes % 8 % Eosinophils % 4 % Basophils % 1 % Neutrophils # 3.0 (1.3-7.7) k/uL Lymphocytes # 2.6 (1.0-4.8) k/uL Monocytes # 0.6 (0-1.0) k/uL Eosinophils # 0.2 (0-0.7) k/uL Basophils # 0.1 (0-0.2) k/uL PT (9.0-12.0) sec INR (<1.2) APTT (22.0-30.0) sec Sodium (137-145) mmol/L Potassium (3.5-5.1) mmol/L Chloride (98-107) mmol/L Carbon Dioxide (22-30) mmol/L Anion Gap mmol/L BUN (7-17) mg/dL Creatinine (0.52-1.04) mg/dL Est GFR (CKD-EPI)AfAm (>60 ml/min/1.73 sqM) Est GFR (CKD-EPI)NonAf (>60 ml/min/1.73 sqM) Glucose (74-99) mg/dL Calcium (8.4-10.2) mg/dL Magnesium (1.6-2.3) mg/dL Total Bilirubin (0.2-1.3) mg/dL AST (14-36) U/L ALT (9-52) U/L Alkaline Phosphatase (38-126) U/L Total Creatine Kinase 49 (30-135) U/L NT-Pro-B Natriuret Pep 1660 pg/mL Total Protein (6.3-8.2) g/dL Albumin (3.5-5.0) g/dL Lipase (23-300) U/L 04/18/18 04/18/18 Range/Units 20:28 20:28 WBC (3.8-10.6) k/uL RBC (3.80-5.40) m/uL Hgb (11.4-16.0) gm/dL Hct (34.0-46.0) % MCV (80.0-100.0) fL MCH (25.0-35.0) pg MCHC (31.0-37.0) g/dL RDW (11.5-15.5) % Plt Count (150-450) k/uL Neutrophils % % Lymphocytes % % Monocytes % % Eosinophils % % Basophils % % Neutrophils # (1.3-7.7) k/uL Lymphocytes # (1.0-4.8) k/uL Monocytes # (0-1.0) k/uL Eosinophils # (0-0.7) k/uL Basophils # (0-0.2) k/uL PT 10.8 (9.0-12.0) sec INR 1.1 (<1.2) APTT 22.4 (22.0-30.0) sec Sodium 138 (137-145) mmol/L Potassium 4.6 (3.5-5.1) mmol/L Chloride 105 (98-107) mmol/L Carbon Dioxide 27 (22-30) mmol/L Anion Gap 6 mmol/L BUN 23 H (7-17) mg/dL Creatinine 1.30 H (0.52-1.04) mg/dL Est GFR (CKD-EPI)AfAm 43 (>60 ml/min/1.73 sqM) Est GFR (CKD-EPI)NonAf 38 (>60 ml/min/1.73 sqM) Glucose 124 H (74-99) mg/dL Calcium 9.5 (8.4-10.2) mg/dL Magnesium 2.2 (1.6-2.3) mg/dL Total Bilirubin 0.4 (0.2-1.3) mg/dL AST 32 (14-36) U/L ALT 32 (9-52) U/L Alkaline Phosphatase 83 (38-126) U/L Total Creatine Kinase (30-135) U/L NT-Pro-B Natriuret Pep pg/mL Total Protein 7.2 (6.3-8.2) g/dL Albumin 4.0 (3.5-5.0) g/dL Lipase 309 H (23-300) U/L - Radiology Data Radiology results: report reviewed (Chest x-rays negative for acute disease), image reviewed Critical Care Time Critical Care Time: Yes Total Critical Care Time: 31 Disposition Clinical Impression: Chest pain, NSTEMI (non-ST elevated myocardial infarction) Disposition: ADMITTED IP TO THIS HOSP Condition: Undetermined Instructions: Chest Pain (ED) Is patient prescribed a controlled substance at d/c from ED?: No Referrals: Reji Stoner MD [Primary Care Provider] - 1-2 days
[2018-04-18 21:03] LABS: Basophils # (A) 0.1 k/uL (0-0.2); Basophils % (A) 1 %; Eosinophils # (A) 0.2 k/uL (0-0.7); Eosinophils % (A) 4 %; HCT 42.4 % (34.0-46.0); HGB 13.7 gm/dL (11.4-16.0); Lymphocytes # (A) 2.6 k/uL (1.0-4.8); Lymphocytes % (A) 39 %; MCH 30.9 pg (25.0-35.0); MCHC 32.4 g/dL (31.0-37.0); MCV 95.4 fL (80.0-100.0); Mean Platelet Volume 6.7; Monocytes # (A) 0.6 k/uL (0-1.0); Monocytes % (A) 8 %; Neutrophils % (A) 45 %; Platelet Count 167 k/uL (150-450); RBC 4.44 m/uL (3.80-5.40); RDW 14.4 % (11.5-15.5); WBC 6.7 k/uL (3.8-10.6)
--- NOTE | 2018-04-18 21:04 | XR ---
EXAMINATION TYPE: XR chest 2V DATE OF EXAM: 04/18/2018 COMPARISON: 04/16/2017 HISTORY: Chest pain TECHNIQUE: Frontal and lateral views of the chest are obtained. FINDINGS: There is no heart failure nor confluent pneumonic infiltrate. Thoracic aorta is atheromato us. Bony thorax is intact. There are chest leads. There is mild pleural scarring at the lung apices. IMPRESSION: No active cardiopulmonary disease. Normal heart. No change.
[2018-04-18 21:12] LABS: INR 1.1 (<1.2); Partial Thromboplastin Time 22.4 sec (22.0-30.0); Prothrombin Time 10.8 sec (9.0-12.0)
[2018-04-18 21:14] LABS: Calcium 9.5 mg/dL (8.4-10.2); Magnesium 2.2 mg/dL (1.6-2.3); Potassium 4.6 mmol/L (3.5-5.1); Total Bilirubin 0.4 mg/dL (0.2-1.3); Total Protein 7.2 g/dL (6.3-8.2)
[2018-04-18] MEDS: LABETALOL 5 MG/ML VIAL MDV IVP STA ×3 (21:16→22:41)
[2018-04-18] MEDS ORDERED: NITROGLYCERIN SL TABS 0.4 MG TAB SUBLINGUAL PRN (21:20)
[2018-04-18] MEDS ORDERED: HEPARIN SODIUM,PORCINE 5,000 UNIT/ML 1 ML VIAL IV PRN (21:20)
[2018-04-18] MEDS ORDERED: HEPARIN SODIUM,PORCINE 5,000 UNIT/ML 1 ML VIAL IV ONE (21:20)
[2018-04-18] MEDS ORDERED: MORPHINE SULFATE 4 MG/ML SYRINGE IVP PRN (21:22)
[2018-04-18] MEDS ORDERED: MORPHINE SULFATE 4 MG/ML SYRINGE IVP STA (21:22)
[2018-04-18] MEDS ORDERED: HEPARIN SOD,PORK IN 0.45% NACL 25,000 UNIT in 0.45% NACL 1 500ML.BAG IV SCH (21:30)
[2018-04-18 21:38] LABS: Creatine Kinase MB 5.1 ng/mL (0.0-2.4); Troponin I 0.298 ng/mL (0.000-0.034)
--- NOTE | 2018-04-18 21:55 | CT ---
EXAMINATION TYPE: CT chest wo con DATE OF EXAM: 04/18/2018 COMPARISON: 03/16/2011 HISTORY: chest pain, hx of cardiac stents CT DLP: 256.6 mGycm. Automated Exposure Control for Dose Reduction was Utilized. TECHNIQUE: CT scan of the thorax is performed without IV contrast. FINDINGS: There is mild pleural thickening at the lung apices. There is interstitial infiltrate in subsegmental atelectasis at the lung bases. There is no evidence of a pulmonary mass. There is no pleural effusio n. Thoracic aorta is atheromatous. There is no evidence of aneurysm. Ascending aorta measures 3.4 cm. There is calcified bronchial cartilage. There is no pericardial effusion. There are no hilar masses. There is no mediastinal adenopathy. There is coronary artery calcification. There are spondylotic ch anges in the thoracic spine. IMPRESSION: Atherosclerotic vascular disease. Pulmonary fibrotic changes and subsegmental atelectasis. This appea rs worse at the lung bases compared to old exam. No aneurysm.
[2018-04-18] MEDS ORDERED: LABETALOL 5 MG/ML VIAL MDV IVP STA (22:13)
[2018-04-18] MEDS ORDERED: ONDANSETRON 4 MG/2 ML VIAL IVP STA (22:13)
[2018-04-18] MEDS ORDERED: ATORVASTATIN 80 MG TAB PO STA (22:13)
--- NOTE | 2018-04-18 22:17 | ED ---
Medical Decision Making - Medical Decision Making 87 female the ER began having persistent nausea and recurrent and increasing chest pain as well as diaphoresis. Repeat EKG shows positive ST elevation TN. 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 paged - Lab Data Result diagrams: 04/18/18 20:28 04/18/18 20:28 Lab Results 04/18/18 04/18/18 04/18/18 Range/Units 20:28 20:28 20:28 WBC 6.7 (3.8-10.6) k/uL RBC 4.44 (3.80-5.40) m/uL Hgb 13.7 (11.4-16.0) gm/dL Hct 42.4 (34.0-46.0) % MCV 95.4 (80.0-100.0) fL MCH 30.9 (25.0-35.0) pg MCHC 32.4 (31.0-37.0) g/dL RDW 14.4 (11.5-15.5) % Plt Count 167 (150-450) k/uL Neutrophils % 45 % Lymphocytes % 39 % Monocytes % 8 % Eosinophils % 4 % Basophils % 1 % Neutrophils # 3.0 (1.3-7.7) k/uL Lymphocytes # 2.6 (1.0-4.8) k/uL Monocytes # 0.6 (0-1.0) k/uL Eosinophils # 0.2 (0-0.7) k/uL Basophils # 0.1 (0-0.2) k/uL PT (9.0-12.0) sec INR (<1.2) APTT (22.0-30.0) sec Sodium (137-145) mmol/L Potassium (3.5-5.1) mmol/L Chloride (98-107) mmol/L Carbon Dioxide (22-30) mmol/L Anion Gap mmol/L BUN (7-17) mg/dL Creatinine (0.52-1.04) mg/dL Est GFR (CKD-EPI)AfAm (>60 ml/min/1.73 sqM) Est GFR (CKD-EPI)NonAf (>60 ml/min/1.73 sqM) Glucose (74-99) mg/dL Calcium (8.4-10.2) mg/dL Magnesium (1.6-2.3) mg/dL Total Bilirubin (0.2-1.3) mg/dL AST (14-36) U/L ALT (9-52) U/L Alkaline Phosphatase (38-126) U/L Total Creatine Kinase 49 (30-135) U/L CK-MB (CK-2) 5.1 H* (0.0-2.4) ng/mL CK-MB (CK-2) Rel Index 10.4 Troponin I 0.298 H* (0.000-0.034) ng/mL NT-Pro-B Natriuret Pep 1660 pg/mL Total Protein (6.3-8.2) g/dL Albumin (3.5-5.0) g/dL Lipase (23-300) U/L 04/18/18 04/18/18 Range/Units 20:28 20:28 WBC (3.8-10.6) k/uL RBC (3.80-5.40) m/uL Hgb (11.4-16.0) gm/dL Hct (34.0-46.0) % MCV (80.0-100.0) fL MCH (25.0-35.0) pg MCHC (31.0-37.0) g/dL RDW (11.5-15.5) % Plt Count (150-450) k/uL Neutrophils % % Lymphocytes % % Monocytes % % Eosinophils % % Basophils % % Neutrophils # (1.3-7.7) k/uL Lymphocytes # (1.0-4.8) k/uL Monocytes # (0-1.0) k/uL Eosinophils # (0-0.7) k/uL Basophils # (0-0.2) k/uL PT 10.8 (9.0-12.0) sec INR 1.1 (<1.2) APTT 22.4 (22.0-30.0) sec Sodium 138 (137-145) mmol/L Potassium 4.6 (3.5-5.1) mmol/L Chloride 105 (98-107) mmol/L Carbon Dioxide 27 (22-30) mmol/L Anion Gap 6 mmol/L BUN 23 H (7-17) mg/dL Creatinine 1.30 H (0.52-1.04) mg/dL Est GFR (CKD-EPI)AfAm 43 (>60 ml/min/1.73 sqM) Est GFR (CKD-EPI)NonAf 38 (>60 ml/min/1.73 sqM) Glucose 124 H (74-99) mg/dL Calcium 9.5 (8.4-10.2) mg/dL Magnesium 2.2 (1.6-2.3) mg/dL Total Bilirubin 0.4 (0.2-1.3) mg/dL AST 32 (14-36) U/L ALT 32 (9-52) U/L Alkaline Phosphatase 83 (38-126) U/L Total Creatine Kinase (30-135) U/L CK-MB (CK-2) (0.0-2.4) ng/mL CK-MB (CK-2) Rel Index Troponin I (0.000-0.034) ng/mL NT-Pro-B Natriuret Pep pg/mL Total Protein 7.2 (6.3-8.2) g/dL Albumin 4.0 (3.5-5.0) g/dL Lipase 309 H (23-300) U/L Critical Care Time Critical Care Time: Yes Total Critical Care Time: 31 Disposition Clinical Impression: Chest pain, STEMI (ST elevation myocardial infarction) Disposition: ADMITTED IP TO THIS HOSP Condition: Critical Is patient prescribed a controlled substance at d/c from ED?: No
--- NOTE | 2018-04-18 22:38 | XR ---
EXAMINATION TYPE: XR chest 1V portable DATE OF EXAM: 04/18/2018 COMPARISON: Today HISTORY: Chest pain TECHNIQUE: Single frontal view of the chest is obtained. FINDINGS: There is coarse interstitial density in the mid and lower lung childers. There is no definit e heart failure. Thoracic aorta is atheromatous. There are chest leads. There is slight blunting of l eft costophrenic angle. IMPRESSION: There is mild pleural reaction at the left lung base increased compared to exam 2 hours ago. Pulmonary interstitial fibrosis. No heart failure. Pulmonary interstitial infiltrates are increa sed compared to recent exam.
[2018-04-18] MEDS ORDERED: LIDOCAINE 1% INJ 10MG/ML (20 ML MDV) ONE (22:46)
[2018-04-18] MEDS ORDERED: fentaNYL (PF) 50 MCG/ML 2 ML AMP ONE (22:46)
[2018-04-18] MEDS ORDERED: LIDOCAINE 1% (PF) 10MG/ML VIAL SQ ONE (22:57)
[2018-04-18] MEDS ORDERED: fentaNYL (PF) 50 MCG/ML 2 ML AMP IVP ONE (23:00)
[2018-04-18] MEDS ORDERED: CLOPIDOGREL 75 MG TAB ONE (23:03)
[2018-04-18] MEDS ORDERED: BIVALIRUDIN 250 MG in SODIUM CHLORIDE 0.9% 50 ML IV ONE (23:05)
[2018-04-18] MEDS ORDERED: BIVALIRUDIN BOLUS 250 MG/50 ML IV ONE (23:05)
[2018-04-18] MEDS ORDERED: ONDANSETRON 4 MG/2 ML VIAL ONE (23:06)
[2018-04-18] MEDS ORDERED: ONDANSETRON 4 MG/2 ML VIAL IVP ONE (23:10)
[2018-04-18] MEDS ORDERED: CLOPIDOGREL 75 MG TAB PO ONE (23:12)
--- NOTE | 2018-04-18 23:20 | CONS ---
CONSULTATION ATTENDING: Dr. Little. Mrs. Jacobo is an 87-year-old female with known history of hypertension, hyperlipidemia as well as history of coronary artery disease, who presented to the emergency room with symptoms of chest discomfort. The discomfort started yesterday, was mild today, has recurred again and persisted, came into the emergency room and initially her pain was better. Initial EKG was interpreted as not showing significant changes. Subsequently, EKG showed ST-segment elevation in lead III. The patient has a known history of coronary disease, status post percutaneous revascularization done in [place] and [place], last time around 2004. Full details of those interventions are not available to me. She follows on a regular basis with Dr. Stefano Jane. The patient denies any PND, orthopnea or peripheral edema. She has no dizziness, palpitation or syncope. The discomfort is radiating to the left arm. It reminds her of the way she felt at that time of her intervention. She has no prior history of myocardial infarction or congestive heart failure. Her coronary risk factors are remarkable for hypertension, hyperlipidemia. She is a nonsmoker, nondiabetic. MEDICATIONS: Include: 1. Aspirin. 2. Lisinopril 20 mg daily. 3. Atenolol 25 mg daily. 4. Simvastatin 40 mg daily and. 5. Vitamin C and. 6. Loratadine on a p.r.n. basis. REVIEW OF SYSTEMS: RESPIRATORY: No recent wheezing. No cough. No history of obstructive lung disease. GI: No recent GI bleeding. No peptic ulcer disease. : No dysuria or hematuria. NERVOUS: No stroke or seizure. PHYSICAL EXAMINATION: She is an 87-year-old female; alert, oriented, in no apparent distress. Heart rate running in the 80s with a blood pressure of 140/70. HEAD: Normocephalic. EYES: Sclerae anicteric. NECK: Good carotid upstroke. No bruit. LUNGS: Clear to auscultation anteriorly. HEART: Regular rate and rhythm. S1, S2. No S3 with systolic murmur at the base. No diastolic murmur. No rub. ABDOMEN: Soft, nontender. Positive bowel sounds. No megaly. EXTREMITIES: No edema. Intact distal pulses. EKG revealed sinus mechanism with a rate of 85, normal axis, ST-segment depression in I and aVL and ST elevation in lead III with nonspecific ST-T wave changes in the lateral precordial leads. IMPRESSION: 1. Symptoms of chest discomfort with ST-segment changes in lead III consistent with an acute myocardial infarction. 2. Known history of coronary artery disease, status post multivessel angioplasty and stenting in the past. Details not available. 3. Hypertension. 4. Hyperlipidemia. RECOMMENDATION: In view of her presentation and her symptoms, I recommend proceeding with coronary angiography to assess her status and guide her treatment. The rationale behind the procedures, its risks, benefits and complications were discussed with the patient and her family who is in full understanding and agreement. Thank you for this consult. We will follow with you. MMODL / IJN: [id number] /
[2018-04-18] MEDS ORDERED: TICAGRELOR 90 MG TAB ONE (23:21)
[2018-04-18] MEDS ORDERED: TICAGRELOR 90 MG TAB PO ONE (23:22)
[2018-04-18] MEDS ORDERED: IOPAMIDOL-370 125ML BTL INJ ONE (23:28)
[2018-04-18] MEDS ORDERED: FUROSEMIDE 10 MG/ML 4 ML VIAL ONE (23:49)
[2018-04-18] MEDS ORDERED: IOPAMIDOL-370 100ML BTL INJ ONE (23:58)
[2018-04-18] MEDS ORDERED: FUROSEMIDE 10 MG/ML 4 ML VIAL IVP ONE (23:58)
[2018-04-18] MEDS ORDERED: IV FLUID CONTINUATION 1,000 ML IV ONE (23:59)
[2018-04-19] MEDS ORDERED: ZOLPIDEM 5 MG TAB PO PRN (00:07)
[2018-04-19] MEDS ORDERED: MAG HYDROX/AL HYDROX/SIMETH 30 ML CUP PO PRN (00:07)
[2018-04-19] MEDS ORDERED: ATROPINE SULFATE 0.1 MG/ML 10ML SYRINGE IV PRN (00:07)
[2018-04-19] MEDS ORDERED: RX INFO: IV CONTRAST WAS GIVEN 1 EACH MISC MISCELLANE PRN (00:07)
[2018-04-19] MEDS ORDERED: SODIUM CHLORIDE 0.9% 1,000 ML IV SCH (00:15)
[2018-04-19 00:37] LABS: Glucose,Whole Blood 186 mg/dL (75-99)
[2018-04-19] MEDS ORDERED: LABETALOL 5 MG/ML VIAL MDV IVP STA (02:01)
[2018-04-19] MEDS: ONDANSETRON 4 MG/2 ML VIAL IVP PRN ×3 (03:00→15:54)
[2018-04-19 03:19] LABS: Mean Platelet Volume 6.7; Platelet Count 125 k/uL (150-450)
[2018-04-19 03:35] LABS: Calcium 8.9 mg/dL (8.4-10.2); Potassium 4.4 mmol/L (3.5-5.1)
--- NOTE | 2018-04-19 07:43 | XR ---
EXAMINATION TYPE: XR chest 1V portable DATE OF EXAM: 04/19/2018 Comparison: 04/18/2018 Clinical History: 87-year-old female STEMI, shortness of breath. Findings: Heart upper limits of normal in size. Atherosclerotic calcifications within the aorta. Diffuse inters titial prominence has a chronic appearance. Some patchy peripheral left basilar density is similar. B iapical pleural parenchymal scarring noted. Normal variant azygous fissure. Impression: Interstitial changes appear largely chronic. The small patchy peripheral left basilar atelectasis or infiltrate is unchanged.
[2018-04-19 07:48] LABS: Basophils % (A) 0 %; Eosinophils % (A) 0 %; HCT 43.7 % (34.0-46.0); HGB 13.8 gm/dL (11.4-16.0); Lymphocytes # (A) 1.2 k/uL (1.0-4.8); Lymphocytes % (A) 11 %; MCH 30.5 pg (25.0-35.0); MCHC 31.6 g/dL (31.0-37.0); MCV 96.5 fL (80.0-100.0); Mean Platelet Volume 7.7; Monocytes # (A) 0.4 k/uL (0-1.0); Monocytes % (A) 4 %; Neutrophils # (A) 8.7 k/uL (1.3-7.7); Neutrophils % (A) 84 %; Platelet Count 134 k/uL (150-450); RBC 4.53 m/uL (3.80-5.40); RDW 14.5 % (11.5-15.5); WBC 10.4 k/uL (3.8-10.6)
[2018-04-19] MEDS: PANTOPRAZOLE 40 MG TABLET PO SCH ×2 (07:59→18:09)
--- NOTE | 2018-04-19 08:20 | ECHOF ---
Referral Reason:cad MEASUREMENTS -------- HEIGHT: 157.5 cm WEIGHT: 72.6 kg BP: 171/75 RVIDd: 2.3 cm (< 3.3) IVSd: 1.1 cm (0.6 - 1.1) LVIDd: 4.4 cm (3.9 - 5.3) LVPWd: 1.1 cm (0.6 - 1.1) IVSs: 1.5 cm LVIDs: 3.5 cm LVPWs: 1.1 cm LA Diam: 2.7 cm (2.7 - 3.8) LAESV Index (A-L): 15.92 ml/m Ao Diam: 3.7 cm (2.0 - 3.7) MV EXCURSION: 16.594 mm (> 18.000) MV EF SLOPE: 53 mm/s (70 - 150) EPSS: 0.8 cm MV E Zhang: 0.66 m/s MV DecT: 177 ms MV A Zhang: 0.84 m/s MV E/A Ratio: 0.79 FINDINGS -------- Sinus rhythm. This was a technically adequate study. The left ventricular size is normal. There is borderline concentric left ventricular hypertrophy. Overall left ventricular systolic function is mildly impaired with, an EF between 45 - 50 %. Basal lateral LV wall motion is hypokinetic. Mid lateral LV wall motion is hypokinetic. The right ventricle is normal in size. Normal LA size by volume 22+/-6 ml/m2. The right atrium is normal in size. There is mild aortic valve sclerosis. Mild mitral annular calcification present. Mild mitral regurgitation is present. The tricuspid valve appears structurally normal. No regurgitation noted There is no pulmonic regurgitation present. The aortic root size is normal. Normal inferior vena cava with normal inspiratory collapse consistent with estimated right atrial pre ssure of 5 mmHg. There is no pericardial effusion. CONCLUSIONS -------- 1. Sinus rhythm. 2. This was a technically adequate study. 3. The left ventricular size is normal. 4. There is borderline concentric left ventricular hypertrophy. 5. Overall left ventricular systolic function is mildly impaired with, an EF between 45 - 50 %. 6. Basal lateral LV wall motion is hypokinetic. 7. Mid lateral LV wall motion is hypokinetic. 8. Normal LA size by volume 22+/-6 ml/m2. 9. There is mild aortic valve sclerosis. 10. Mild mitral annular calcification present. 11. Mild mitral regurgitation is present. 12. The tricuspid valve appears structurally normal. 13. There is no pulmonic regurgitation present. 14. The aortic root size is normal. 15. Normal inferior vena cava with normal inspiratory collapse consistent with estimated right atrial pressure of 5 mmHg. 16. There is no pericardial effusion. STUMPER FELLER: Tg Madison RDCS
[2018-04-19] MEDS ORDERED: METOPROLOL TARTRATE 50 MG TAB PO SCH (09:00)
[2018-04-19] MEDS ORDERED: ASPIRIN 325 MG TAB PO SCH (09:00)
[2018-04-19] MEDS ORDERED: FUROSEMIDE 10 MG/ML 2 ML VIAL IV ONE (09:11)
--- NOTE | 2018-04-19 09:33 | CC ---
CARDIAC CATHETERIZATION REPORT Mrs. Roman is an 87-year-old male female, known history of coronary artery disease, status post percutaneous revascularization done in [place] and [place], history of hypertension, hyperlipidemia, who presented with symptoms of chest discomfort radiating to the left arm. On presentation, she had T-wave inversion in the lateral limb leads as well as ST elevation in lead 3. In view of that, recommendations were made regarding cardiac catheterization. The procedures, risks and complications were discussed with the patient who is in full understanding and agreement. PROCEDURE: Patient was brought to catheter builder after receiving Benadryl and fentanyl and achieving moderate conscious sedated state. Using Xylocaine anesthesia and Seldinger technique, a 6-Nauruan sheath was introduced in the right femoral artery. Selective right and left angiography performed using 6-Nauruan 4 bend right and left Eusebio catheter. Multiple views of the coronary artery including hemiaxial views were obtained. Following that, angioplasty and stenting was performed. Following that, a 6-Nauruan tight pigtail catheter was introduced into the left ventricle and pressures were calculated. Following that, catheter was removed. The sheath was sutured in place. The patient was returned to room in stable condition. FINDINGS: FLUOROSCOPY: There was calcification involving the coronary arteries. SELECTIVE CORONARY ANGIOGRAM: Left main: This is a large-sized vessel bifurcating into left circumflex, left anterior descending artery. Left main coronary artery has no evidence of high-grade stenosis. LEFT ANTERIOR DESCENDING ARTERY: This is a large-sized vessel reaching toward the apex with a wraparound apex segment giving rise to 2 diagonal branches. The LAD in the proximal and mid segment is stented. The stent has intimal restenoses of 30%. The second diagonal branch appears to be small in caliber and totally occluded with retrograde feeling. Left circumflex: This is a nondominant vessel proximally. It has 50% plaque. It gives rise to an obtuse marginal branch that is totally occluded with no significant antegrade flow. The 2nd obtuse marginal branch and distal left circumflex are small in caliber. Right coronary artery: This is a dominant vessel, heavily calcified proximally. The proximal right coronary artery has an eccentric lesion that appears to be on some views about a 50% to 60%. The mid segment is stented and has mild to moderate intimal restenoses of about 40%. The rest of the vessel has no high-grade stenosis. LEFT VENTRICULOGRAM: Left ventriculogram was not performed. HEMODYNAMICS: There was no gradient across the aortic valve. The left ventricle end-diastolic pressure montez 24-28 mmHg. CONCLUSION: 1. Acutely occluded obtuse marginal branch. 2. Mild disease in the LAD with moderate to severe stenosis in the ostium of the right coronary artery. 3. Elevated left ventricle end-diastolic pressure. RECOMMENDATION: In view of findings and anatomy, I recommend proceeding with angioplasty and stenting of the left circumflex, obtuse marginal branch. The procedures, risks and complications were discussed with the patient who is in full understanding and agreement. MMODL / IJN: [id number] /
--- NOTE | 2018-04-19 09:36 | PTCA ---
PERCUTANEOUSTRANS CORORONARY ANGIOGRAPHY Mrs. Roman is an 87-year-old female with known history of coronary artery disease, hypertension, hyperlipidemia, who presented with symptoms of chest discomfort and had evidence of EKG changes, underwent cardiac catheterization and was found to have totally occluded first obtuse marginal branch. In view of that, recommendation was made regarding angioplasty and stenting. The procedures, risks and complications were discussed with the patient who is in full understanding and agreement. PROCEDURE: A 6-Arabic FR4 guiding catheter was introduced in the system. After cannulating the left main, a 0.014 balanced medium weight J-wire was advanced across the obtuse marginal branch and positioned distally. Following that, a 2.0 x 8 mm Trek balloon was advanced and two inflations at 10 atmospheres were done. Following that the balloon was removed and a 0.014 whisper J-wire was advanced next to the 1st wire in a praveena fashion. Subsequently a 225 x 12 mm Trek balloon was advanced and 2 inflations at 8 atmospheres were done. Following that, the balloon was removed and attempt to advance a 2.25 x 18 mm Xience Alpine stent were unsuccessful. That stent was removed and attempt to advance a 2.0 x 18 mm Rajeev resolute was unsuccessful as well. After that, that stent was removed and attempt to advance a 2.25 x 15 mm Xience Alpine stent was unsuccessful. Following that, a 2.0 x 12 mm Rajeev Integrity was advanced, deployed and was dilated at 16 atmospheres. After removing the balloon, a 2.0 x 8 mm Rajeev Integrity stent was deployed proximal to the first one and was dilated at 16 atmospheres. After the last inflation, after appropriate wait the balloon and the guidewire were withdrawn back in the guiding catheter. Images were obtained, repeated. Those images reveal stable successful stenting. Subsequently, the guiding wire, and the catheter were removed and left ventricular pressures were obtained using a pigtail catheter. Following that, catheter was removed. Sheath was sutured in place. The patient was returned to her room in stable condition. The patient had no chest discomfort at the end of the procedure. She received Angiomax per protocol as well as oral loading dose of Brilinta. RESULTS: Successful stenting of the first obtuse marginal branch with reduction of stenosis from 100% to 0%. RECOMMENDATIONS: Patient be continued on aspirin, Brilinta, beta blockers symptoms, and statin. The importance of dual antiplatelet treatment were discussed with the patient and her family who are in full understanding and agreement. Duration of procedure: 56 minutes. JEAN / BECKIEN: [id number] /
[2018-04-19] MEDS: ASPIRIN 81 MG PO SCH (09:53)
[2018-04-19] MEDS: TICAGRELOR 90 MG TAB PO SCH ×2 (09:53→20:48)
[2018-04-19] MEDS: METOPROLOL TARTRATE 25 MG TAB PO SCH ×2 (09:53→20:49)
[2018-04-19] MEDS: LISINOPRIL 5 MG TAB PO SCH ×2 (09:53→20:48)
--- NOTE | 2018-04-19 16:10 | P.HPIM ---
History of Present Illness 85-year-old the female came in with complains of a chest pain without any significant changes and initial EKGs although the patient had mildly elevated troponins subsequent EKG showed ST elevation microinfarction patient underwent cardiac catheterization and stenting of obtuse 1 marginal branch. Patient presently doesn't have any chest pain. Patient had a decreased ejection fraction of 45%. Patient received 1 dose of Lasix. Patient denied fevers chills nausea vomiting. Patient denied any shortness of breath. Review of Systems REVIEW OF SYSTEMS: CONSTITUTIONAL: No fever, no malaise, no fatigue. HEENT: No recent visual problems or hearing problems. Denied any sore throat. CARDIOVASCULAR: No chest pain, orthopnea, PND, no palpitations, no syncope. PULMONARY: No shortness of breath, no cough, no hemoptysis. GASTROINTESTINAL: No diarrhea, no nausea, no vomiting, no abdominal pain. Normoactive bowel sounds. NEUROLOGICAL: No headaches, no weakness, no numbness. HEMATOLOGICAL: Denies any bleeding or petechiae. GENITOURINARY: Denies any burning micturition, frequency, or urgency. MUSCULOSKELETAL/RHEUMATOLOGICAL: Denies any joint pain, swelling, or any muscle pain. ENDOCRINE: Denies any polyuria or polydipsia. The rest of the 14-point review of systems is negative. Past Medical History Past Medical History: Coronary Artery Disease (CAD), Chest Pain / Angina, Hyperlipidemia, Myocardial Infarction ([place]), Pneumonia Additional Past Medical History / Comment(s): Coronary artery disease with a previous history of coronary intervention and stenting, hypertension, hyperlipidemia, osteoarthritis. Last Myocardial Infarction Date:: unk History of Any Multi-Drug Resistant Organisms: None Reported Past Surgical History: Heart Catheterization With Stent Additional Past Surgical History / Comment(s): pt voices "two to three" previous stents, unsure of date Past Anesthesia/Blood Transfusion Reactions: No Reported Reaction Date of Last Stent Placement:: unk Past Psychological History: No Psychological Hx Reported Smoking Status: Never smoker Past Alcohol Use History: None Reported Past Drug Use History: None Reported - Past Family History Mother Family Medical History: Hyperlipidemia, Hypertension Medications and Allergies Home Medications Medication Instructions Recorded Confirmed Type Ascorbic Acid [Vitamin C] 1,000 mg PO DAILY 03/27/17 04/19/18 History Atenolol 25 mg PO DAILY 03/27/17 04/19/18 History Lisinopril [Prinivil] 20 mg PO DAILY 03/27/17 04/19/18 History Bernard-3 Fatty Acids/Fish Oil [Fish 1 cap PO DAILY 03/27/17 04/19/18 History Oil 1,000 mg Softgel] Simvastatin [Zocor] 40 mg PO HS 03/27/17 04/19/18 History Acetaminophen Tab [Tylenol Tab] 500 mg PO QAM 04/19/18 04/19/18 History Aspirin 325 mg PO DAILY 04/19/18 04/19/18 History Loratadine [Claritin] 10 mg PO DAILY 04/19/18 04/19/18 History Melatonin 5 mg PO HS 04/19/18 04/19/18 History Multivitamins, Thera [Multivitamin 1 tab PO DAILY 04/19/18 04/19/18 History (formulary)] Allergies Allergy/AdvReac Type Severity Reaction Status Date / Time No Known Allergies Allergy Verified 04/19/18 12:13 Physical Exam Vitals: Vital Signs Temp Pulse Pulse Resp BP BP Pulse Ox 04/19/18 16:00 98.0 F 83 24 140/70 93 L 04/19/18 15:00 98 93 H 121/88 93 L 04/19/18 14:00 81 14 115/45 95 04/19/18 13:00 75 12 105/46 97 04/19/18 12:30 84 12 131/52 97 04/19/18 12:00 98.3 F 78 16 131/52 96 04/19/18 11:52 98.3 F 80 16 131/57 96 04/19/18 11:30 77 12 105/42 95 04/19/18 11:00 76 12 112/74 94 L 04/19/18 10:30 77 14 132/57 94 L 04/19/18 10:00 88 15 151/57 96 04/19/18 09:30 85 20 138/67 95 04/19/18 09:00 76 20 153/79 95 04/19/18 08:40 76 16 133/43 95 04/19/18 08:20 74 12 155/62 96 04/19/18 08:00 97.5 F L 76 12 131/53 96 04/19/18 07:40 81 14 149/74 95 04/19/18 07:20 75 10 L 140/67 95 04/19/18 07:00 79 17 116/55 94 L 04/19/18 06:40 74 12 131/54 94 L 04/19/18 06:20 77 13 148/63 93 L 04/19/18 06:00 75 21 119/52 96 04/19/18 05:40 97.5 F L 84 13 177/75 94 L 04/19/18 05:20 72 22 153/62 93 L 04/19/18 05:00 73 21 124/65 91 L 04/19/18 04:40 82 19 110/50 95 04/19/18 04:20 97.8 F 80 12 114/56 95 04/19/18 04:00 78 12 140/53 93 L 04/19/18 03:40 79 11 L 140/59 94 L 04/19/18 03:20 88 21 151/78 95 04/19/18 03:00 86 10 L 171/75 94 L 04/19/18 02:52 97.9 F 83 12 171/75 96 04/19/18 02:40 81 16 151/64 95 04/19/18 02:20 81 13 149/72 94 L 04/19/18 02:10 80 13 94 L 04/19/18 02:00 80 14 92 L 04/19/18 01:50 81 12 162/72 92 L 04/19/18 01:40 80 13 162/72 91 L 04/19/18 01:30 81 13 169/71 91 L 04/19/18 01:22 98.3 F 91 14 169/71 90 L 04/19/18 01:20 85 16 163/61 92 L 04/19/18 01:10 85 20 163/61 93 L 04/19/18 01:00 97.7 F 88 19 181/71 93 L 04/19/18 00:52 97.7 F 86 12 181/71 91 L 04/19/18 00:50 100 13 180/69 91 L 04/19/18 00:40 102 H 17 180/69 90 L 18 00:37 97.2 F L 80 16 180/69 90 L 04/19/18 00:30 88 28 H 91 L 04/19/18 00:29 90 21 04/18/18 23:43 80 16 170/78 95 04/18/18 22:54 81 16 168/77 99 04/18/18 22:38 80 16 168/73 92 L 04/18/18 22:26 85 16 189/81 96 04/18/18 22:00 80 16 193/82 84 L 04/18/18 21:29 65 18 129/59 94 L 04/18/18 21:20 65 16 123/56 72 L 04/18/18 21:15 72 16 227/88 95 04/18/18 21:05 77 16 175/81 92 L 04/18/18 20:27 98.1 F 83 16 213/101 92 L Intake and Output 04/19/18 04/19/18 04/19/18 06:59 14:59 22:59 Intake Total 545 695 340 Output Total 1600 452 55 Balance -1055 243 285 Intake: IV 545 325 40 .9 kvo 100 40 Sodium Chloride 0.9% 1, 375 225 000 ml @ 75 mls/hr IV . [id number] [facility] Rx#:[id number] Oral 370 300 Output: Urine 1600 452 55 Other: Voiding Method Indwelling Catheter Indwelling Catheter PHYSICAL EXAMINATION: GENERAL: The patient is alert and oriented x3, not in any acute distress. Well developed, well nourished. HEENT: Pupils are round and equally reacting to light. EOMI. No scleral icterus. No conjunctival pallor. Normocephalic, atraumatic. No pharyngeal erythema. No thyromegaly. CARDIOVASCULAR: S1 and S2 present. No murmurs, rubs, or gallops. PULMONARY: Chest is clear to auscultation, no wheezing or crackles. ABDOMEN: Soft, nontender, nondistended, normoactive bowel sounds. No palpable organomegaly. MUSCULOSKELETAL: No joint swelling or deformity. EXTREMITIES: No cyanosis, clubbing, or pedal edema. NEUROLOGICAL: Gross neurological examination did not reveal any focal deficits. SKIN: No rashes. Results CBC & Chem 7: 04/19/18 02:58 04/19/18 02:58 Labs: Abnormal Lab Results - Last 24 Hours (Table) 04/18/18 04/18/18 04/19/18 Range/Units 20:28 20:28 00:35 Plt Count (150-450) k/uL Neutrophils # (1.3-7.7) k/uL APTT (22.0-30.0) sec BUN 23 H (7-17) mg/dL Creatinine 1.30 H (0.52-1.04) mg/dL Glucose 124 H (74-99) mg/dL POC Glucose (mg/dL) 186 H (75-99) mg/dL CK-MB (CK-2) 5.1 H* (0.0-2.4) ng/mL Troponin I 0.298 H* (0.000-0.034) ng/mL Triglycerides (<150) mg/dL Lipase 309 H (23-300) U/L 04/19/18 04/19/18 04/19/18 Range/Units 02:53 02:58 02:58 Plt Count 134 L 125 L (150-450) k/uL Neutrophils # 8.7 H (1.3-7.7) k/uL APTT 46.5 H (22.0-30.0) sec BUN (7-17) mg/dL Creatinine (0.52-1.04) mg/dL Glucose (74-99) mg/dL POC Glucose (mg/dL) (75-99) mg/dL CK-MB (CK-2) (0.0-2.4) ng/mL Troponin I (0.000-0.034) ng/mL Triglycerides (<150) mg/dL Lipase (23-300) U/L 04/19/18 04/19/18 04/19/18 Range/Units 02:58 02:58 08:24 Plt Count (150-450) k/uL Neutrophils # (1.3-7.7) k/uL APTT (22.0-30.0) sec BUN 24 H (7-17) mg/dL Creatinine 1.20 H (0.52-1.04) mg/dL Glucose 183 H (74-99) mg/dL POC Glucose (mg/dL) (75-99) mg/dL CK-MB (CK-2) (0.0-2.4) ng/mL Troponin I 2.250 H* 6.240 H* (0.000-0.034) ng/mL Triglycerides 157 H (<150) mg/dL Lipase (23-300) U/L Thrombosis Risk Factor Assmnt - Choose All That Apply Each Factor Represents 1 point: Acute [place] Each Risk Factor Represents 3 Points: Age 75 years or older Thrombosis Risk Factor Assessment Total Risk Factor Score: 4 Thrombosis Risk Factor Assessment Level: Moderate Risk Assessment and Plan Plan: -ST elevation myocardial infarction: Patient is status post cardiac catheterization patient is on dual antiplatelet therapy beta kristine and a statin which will be continued. -Congestive heart failure mild possible acute systolic dysfunction with mild acute exacerbation patient received 1 dose of Lasix. Patient was started on lisinopril. -Mild acute renal failure: Secondary to acute myocardial infarction expected to improve. -Hyperlipidemia - Hypertension
[2018-04-19] MEDS: NITROGLYCERIN SL TABS 0.4 MG TAB SUBLINGUAL PRN ×2 (20:09→20:20)
--- NOTE | 2018-04-19 20:27 | PN ---
PROGRESS NOTE This patient was admitted last night with chest pain and acute myocardial infarction. Patient underwent a cardiac catheterization and stent to the circumflex coronary artery. The patient is feeling better. The patient is having any nausea. Denies any chest pain. Patient had minimal blood tinged sputum. Blood pressure is 126/43 mmHg, heart rate is 86 per minute, oxygen saturation is 94%. First and second heart sounds are normal. Lungs are clinically clear to auscultation and percussion. Patient's hemoglobin is 13.8. Electrolytes are normal. Creatinine is 1.20. Maximum troponin of 7.79 noted. Echocardiogram revealed lateral wall hypokinesia with ejection fraction of 45%. I will continue the current medications. MMODL / IJN: [id number] /
[2018-04-19] MEDS: ATORVASTATIN 80 MG TAB PO SCH (20:48)
[2018-04-19] MEDS: NITROGLYCERIN OINT 1 INCH/GM PACKET TOPICAL SCH ×2 (22:53)
[2018-04-20 04:57] LABS: Basophils % (A) 0 %; Eosinophils # (A) 0.1 k/uL (0-0.7); Eosinophils % (A) 1 %; HCT 33.6 % (34.0-46.0); Lymphocytes # (A) 2.5 k/uL (1.0-4.8); Lymphocytes % (A) 19 %; MCH 31.1 pg (25.0-35.0); MCHC 32.9 g/dL (31.0-37.0); MCV 94.6 fL (80.0-100.0); Mean Platelet Volume 6.6; Monocytes # (A) 0.9 k/uL (0-1.0); Monocytes % (A) 7 %; Neutrophils # (A) 9.3 k/uL (1.3-7.7); Neutrophils % (A) 72 %; Platelet Count 134 k/uL (150-450); RBC 3.55 m/uL (3.80-5.40); RDW 14.7 % (11.5-15.5)
[2018-04-20 05:10] LABS: Calcium 8.4 mg/dL (8.4-10.2); Magnesium 2.3 mg/dL (1.6-2.3); Phosphorus 3.9 mg/dL (2.5-4.5); Potassium 4.2 mmol/L (3.5-5.1)
[2018-04-20] MEDS: NITROGLYCERIN OINT 1 INCH/GM PACKET TOPICAL SCH ×2 (06:33→12:12)
[2018-04-20] MEDS: ASPIRIN 81 MG PO SCH (08:02)
[2018-04-20] MEDS: LISINOPRIL 5 MG TAB PO SCH (08:02)
[2018-04-20] MEDS: PANTOPRAZOLE 40 MG TABLET PO SCH ×2 (08:02→17:30)
[2018-04-20] MEDS: TICAGRELOR 90 MG TAB PO SCH ×2 (08:02→22:26)
[2018-04-20] MEDS: METOPROLOL TARTRATE 25 MG TAB PO SCH ×2 (08:02→22:26)
[2018-04-20 10:27] VITALS: BMI 29.0
--- NOTE | 2018-04-20 14:30 | P.PN ---
Subjective 82-year-old female admitted for ST elevation myocardial infarctions status post stenting of obtuse marginal branch 1, patient has mildly depressed ejection fraction patient started on lisinopril. Her kidney function is bit worse. Will monitor kidney function continues to worsen and lisinopril may need to be held. Cardiology evaluated the patient. Constitutional: Denied any fatigue denied any fever. Cardio vascular: denied any chest pain, palpitations Gastrointestinal denied any nausea vomiting Pulmonary: Denied any shortness of breath cough Neurologic denied any new focal deficits Objective - Vital Signs Vital signs: Vital Signs Temp 98.1 F 04/20/18 12:00 Pulse 77 04/20/18 14:00 Resp 12 04/20/18 14:00 BP 114/40 04/20/18 14:00 Pulse Ox 96 04/20/18 14:00 Intake & Output 04/19/18 04/20/18 04/20/18 18:59 06:59 18:59 Intake Total 1695 220 40 Output Total 587 330 140 Balance 1108 -110 -100 Weight 72 kg 72 kg Intake: IV 425 220 40 .9 kvo 200 220 40 Sodium Chloride 0.9% 1, 225 000 ml @ 75 mls/hr IV . [id number] [facility] Rx#:[id number] Oral 1270 Output: Urine 587 330 140 Other: Voiding Method Indwelling Catheter Indwelling Catheter Indwelling Catheter # Voids 1 - Exam PHYSICAL EXAMINATION: GENERAL: The patient is alert and oriented x3, not in any acute distress. Well developed, well nourished. HEENT: Pupils are round and equally reacting to light. EOMI. No scleral icterus. No conjunctival pallor. Normocephalic, atraumatic. No pharyngeal erythema. No thyromegaly. CARDIOVASCULAR: S1 and S2 present. No murmurs, rubs, or gallops. PULMONARY: Chest is clear to auscultation, no wheezing or crackles. ABDOMEN: Soft, nontender, nondistended, normoactive bowel sounds. No palpable organomegaly. MUSCULOSKELETAL: No joint swelling or deformity. EXTREMITIES: No cyanosis, clubbing, or pedal edema. NEUROLOGICAL: Gross neurological examination did not reveal any focal deficits. SKIN: No rashes. - Labs CBC & Chem 7: 04/20/18 04:22 04/20/18 04:22 Labs: Abnormal Lab Results - Last 24 Hours (Table) 04/19/18 04/20/18 04/20/18 Range/Units 15:20 04:22 04:22 WBC 13.0 H (3.8-10.6) k/uL RBC 3.55 L (3.80-5.40) m/uL Hgb 11.0 L (11.4-16.0) gm/dL Hct 33.6 L (34.0-46.0) % Plt Count 134 L (150-450) k/uL Neutrophils # 9.3 H (1.3-7.7) k/uL BUN 39 H (7-17) mg/dL Creatinine 1.69 H (0.52-1.04) mg/dL Troponin I 7.790 H* (0.000-0.034) ng/mL Assessment and Plan Plan: -ST elevation myocardial infarction: Patient is status post cardiac catheterization patient is on dual antiplatelet therapy beta kristine and a statin which will be continued. -Congestive heart failure patient is fairly euvolemic and is on lisinopril -Mild acute renal failure: Further management as mentioned above if it continues to go lisinopril to be held and basic metabolic profile tomorrow. Patient is not on Lasix today -Hyperlipidemia - Hypertension
[2018-04-20] MEDS: ATORVASTATIN 80 MG TAB PO SCH (22:26)
[2018-04-21 06:33] LABS: Mean Platelet Volume 7.1; Platelet Count 130 k/uL (150-450)
[2018-04-21 06:47] LABS: Calcium 8.5 mg/dL (8.4-10.2); Potassium 4.3 mmol/L (3.5-5.1)
[2018-04-21] MEDS: PANTOPRAZOLE 40 MG TABLET PO SCH (07:03)
--- NOTE | 2018-04-21 08:14 | PN ---
PROGRESS NOTE This patient is status post acute myocardial infarction and stent to the circumflex coronary artery. The patient had an episode of chest discomfort yesterday, relieved with nitroglycerin. At present she is comfortable lying comfortably in the bed without any respiratory distress. The patient is afebrile. Blood pressure 137/68 mmHg. Respirations are not labored. First and second heart sounds are heard. Lungs are clinically clear to auscultation and percussion. ASSESSMENT AND PLAN: Chest pain, possible angina. The patient's creatinine is increased to 1.69 yesterday. We will recheck the creatinine tomorrow and the patient has been treated with nitroglycerin. Continue the rest of the medications. MMODL / IJN: [id number] /
[2018-04-21] MEDS: ASPIRIN 81 MG PO SCH (09:00)
[2018-04-21] MEDS ORDERED: ISOSORBIDE MONONITRATE ER 30 MG TAB.ER.24H PO SCH (09:00)
[2018-04-21] MEDS: METOPROLOL TARTRATE 25 MG TAB PO SCH (09:00)
[2018-04-21] MEDS: TICAGRELOR 90 MG TAB PO SCH (09:52)
[2018-04-21 10:13] LABS: HCT 32.9 % (34.0-46.0); HGB 10.8 gm/dL (11.4-16.0); MCH 31.2 pg (25.0-35.0); MCHC 32.9 g/dL (31.0-37.0); MCV 94.8 fL (80.0-100.0); Mean Platelet Volume 7.5; Platelet Count 127 k/uL (150-450); RBC 3.46 m/uL (3.80-5.40); RDW 14.7 % (11.5-15.5); WBC 9.5 k/uL (3.8-10.6)
[2018-04-21 11:28] VITALS: RESP 16
[2018-04-21] MEDS ORDERED: traMADol 50 MG TAB PO PRN (12:08)
--- NOTE | 2018-04-21 13:25 | US ---
EXAMINATION TYPE: US venous doppler duplex UE RT DATE OF EXAM: 04/21/2018 COMPARISON: NONE CLINICAL HISTORY: RIGHT ANTECUBITAL . Redness, pain and swelling right antecubital fossa at prior IV site SIDE PERFORMED: Right Right Arm: Negative for DVT, +positive for SVT within right basilic vein at antecubital fossa where p t is having redness and pain IMPRESSION: No evidence of deep venous thrombosis. There is superficial thrombus in the basilic vein.
--- NOTE | 2018-04-21 13:48 | P.PN ---
Subjective Progress Note Date: 04/21/18 Principal diagnosis: Acute myocardial infarction, stent to the circumflex coronary artery Progress note dated 04/21/2018. She is seen again in follow-up, doing well, is up ambulating, tolerating activity well, no shortness of breath or chest pain, he is in sinus rhythm. Patient developed swelling and redness at the former IV site in the right antecubital area, ultrasound of the extremity was ordered. Vital signs are stable, patient is are even and nonlabored, pulse ox is 96%. Right groin puncture site is clean dry and intact, bruised but soft, distal pulses are intact. Objective - Vital Signs Vital signs: Vital Signs Temp 97.6 F 04/21/18 11:27 Pulse 71 04/21/18 11:27 Resp 16 04/21/18 11:27 BP 134/61 04/21/18 11:27 Pulse Ox 96 04/21/18 11:27 Intake & Output 04/20/18 04/21/18 04/21/18 18:59 06:59 18:59 Intake Total 40 360 Output Total 140 65 Balance -100 -65 360 Weight 72 kg 71 kg Intake: IV 40 .9 kvo 40 Oral 360 Output: Urine 140 65 Other: Voiding Method Indwelling Catheter Toilet Toilet # Voids 1 1 1 # Bowel Movements 1 - Exam GENERAL EXAM: Alert, pleasant, 87-year-old white female comfortable in no apparent distress. HEAD: Normocephalic/atraumatic. EYES: Normal reaction of pupils, equal size. Conjunctiva pink, sclera white. NOSE: Clear with pink turbinates. THROAT: No erythema or exudates. NECK: No masses, no JVD, no thyroid enlargement, no adenopathy. CHEST: No chest wall deformity. Symmetrical expansion. LUNGS: Equal air entry with no crackles, wheeze, rhonchi or dullness. CVS: Regular rate and rhythm, normal S1 and S2, no gallops, no murmurs, no rubs ABDOMEN: Soft, nontender. No hepatosplenomegaly, normal bowel sounds, no guarding or rigidity. EXTREMITIES: No clubbing, no edema, no cyanosis, 2+ pulses and upper and lower extremities. Right groin puncture site is clean dry and intact, bruits, but soft. The distal pulses are intact MUSCULOSKELETAL: Muscle strength and tone normal. SPINE: No scoliosis or deformity SKIN: No rashes CENTRAL NERVOUS SYSTEM: Alert and oriented -3. No focal deficits, tone is normal in all 4 extremities. PSYCHIATRIC: Alert and oriented -3. Appropriate affect. Intact judgment and insight. - Labs CBC & Chem 7: 04/21/18 06:00 04/21/18 06:00 Labs: Abnormal Lab Results - Last 24 Hours (Table) 04/21/18 04/21/18 04/21/18 Range/Units 06:00 06:00 06:00 RBC 3.46 L (3.80-5.40) m/uL Hgb 10.8 L (11.4-16.0) gm/dL Hct 32.9 L (34.0-46.0) % Plt Count 130 L 127 L (150-450) k/uL Chloride 108 H (98-107) mmol/L BUN 36 H (7-17) mg/dL Creatinine 1.32 H (0.52-1.04) mg/dL Assessment and Plan Plan: Assessment: #1. Acute myocardial infarction, status post stenting of the circumflex coronary artery #2. Known history of coronary artery disease, status post multivessel angioplasty and stenting in the past #3. Hypertension #4. Hyperlipidemia Plan: Patient is doing well, signs are stable, no specific complaints, tolerating ambulation, respirations are nonlabored. Denies any chest pain. Today's labs show improvement of her renal profile. From a cardiac perspective patient is stable for discharge home once cleared by primary, follow-up with Dr. MARI Jane within one week. I performed a history & physical examination of the patient and discussed their management with my nurse practitioner, Ledy Feliz. I reviewed the nurse practitioner's note and agree with the documented findings and plan of care. Lung sounds are positive for diffuse wheezes throughout the lung childers. The findings and the impression was discussed with the patient. I attest to the documentation by the nurse practitioner. Time with Patient: Less than 30
--- NOTE | 2018-04-21 14:49 | P.DS ---
Providers Date of admission: 04/18/18 21:22 Attending physician: Freddie Woodall Consults: 04/18/18 21:20 Consult Physician Urgent Consulting Provider: Niya Singleton Consult Reason/Comments: cp Do you want consulting provider notified?: Yes 04/19/18 00:07 Consult Physician Routine Consulting Provider: Cardiology Lorie Consult Reason/Comments: Post Interventional patient Do you want consulting provider notified?: Already Contacted Primary care physician: [facility] Course: 82-year-old female admitted for ST elevation myocardial infarctions status post stenting of obtuse marginal branch 1, patient has mildly depressed ejection fraction patient started on lisinopril. Her kidney function is bit worse. Will monitor kidney function continues to worsen and lisinopril may need to be held. Cardiology evaluated the patient. 04/21/2018 Patient's creatinine improved. Currently at by cardiology to be discharged. Patient has redness in the antecubital fossa secondary to superficial thrombophlebitis patient's of home Tylenol dose will be increased and patient will be taking this medication 7 days 3 times a day. Patient was instructed to light the primary care physician no further redness worsens if she has a fever. At this point of time and do not believe patient will require any antibiotics. Ultrasound did show superficial thrombophlebitis PHYSICAL EXAMINATION: GENERAL: The patient is alert and oriented x3, not in any acute distress. Well developed, well nourished. HEENT: Pupils are round and equally reacting to light. EOMI. No scleral icterus. No conjunctival pallor. Normocephalic, atraumatic. No pharyngeal erythema. No thyromegaly. CARDIOVASCULAR: S1 and S2 present. No murmurs, rubs, or gallops. PULMONARY: Chest is clear to auscultation, no wheezing or crackles. ABDOMEN: Soft, nontender, nondistended, normoactive bowel sounds. No palpable organomegaly. MUSCULOSKELETAL: No joint swelling or deformity. EXTREMITIES: No cyanosis, clubbing, or pedal edema. Redness in the antecubital foci on the right side as mentioned above secondary to the IV line. NEUROLOGICAL: Gross neurological examination did not reveal any focal deficits. SKIN: No rashes. Assessment and Plan Plan: -ST elevation myocardial infarction: Patient is status post cardiac catheterization -Congestive heart failure patient is fairly euvolemic and is on lisinopril, her congestive heart failure is probably acute -Mild acute renal failure: Further management as mentioned above if it continues to go lisinopril to be held and basic metabolic profile tomorrow. Patient is not on Lasix today -Hyperlipidemia - Hypertension Patient Condition at Discharge: Critical Plan - Discharge Summary New Discharge Prescriptions: New Metoprolol Tartrate 25 mg PO BID 30 Days #60 tab Ticagrelor [Brilinta] 90 mg PO BID 30 Days #60 tab Atorvastatin [Lipitor] 80 mg PO DAILY 30 Days #30 tab Aspirin 81 mg PO DAILY 30 Days #30 chewable Isosorbide Mononitrate ER [Imdur] 30 mg PO DAILY 30 Days #30 tab Continue [place]-3 Fatty Acids/Fish Oil [Fish Oil 1,000 mg Softgel] 1 cap PO DAILY Ascorbic Acid [Vitamin C] 1,000 mg PO DAILY Lisinopril [Prinivil] 20 mg PO DAILY Multivitamins, Thera [Multivitamin (formulary)] 1 tab PO DAILY Melatonin 5 mg PO HS Loratadine [Claritin] 10 mg PO DAILY Changed Acetaminophen Tab [Tylenol] 100 mg PO TID #21 Discontinued Simvastatin [Zocor] 40 mg PO HS Atenolol 25 mg PO DAILY Aspirin 325 mg PO DAILY Discharge Medication List Ascorbic Acid [Vitamin C] 1,000 mg PO DAILY 03/27/17 [History] Lisinopril [Prinivil] 20 mg PO DAILY 03/27/17 [History] [place]-3 Fatty Acids/Fish Oil [Fish Oil 1,000 mg Softgel] 1 cap PO DAILY [History] Loratadine [Claritin] 10 mg PO DAILY 04/19/18 [History] Melatonin 5 mg PO HS 04/19/18 [History] Multivitamins, Thera [Multivitamin (formulary)] 1 tab PO DAILY 04/19/18 [History ] Acetaminophen Tab [Tylenol] 100 mg PO TID #21 04/21/18 [Rx] Aspirin 81 mg PO DAILY 30 Days #30 chewable 04/21/18 [Rx] Atorvastatin [Lipitor] 80 mg PO DAILY 30 Days #30 tab 04/21/18 [Rx] Isosorbide Mononitrate ER [Imdur] 30 mg PO DAILY 30 Days #30 tab 04/21/18 [Rx] Metoprolol Tartrate 25 mg PO BID 30 Days #60 tab 04/21/18 [Rx] Ticagrelor [Brilinta] 90 mg PO BID 30 Days #60 tab 04/21/18 [Rx] Follow up Appointment(s)/Referral(s): Joan Jane MD [STAFF PHYSICIAN] - 1 Week Reji Stoner MD [Primary Care Provider] - 3 Days Patient Instructions/Handouts: Chest Pain (ED) Discharge Disposition: HOME SELF-CARE
[2018-04-21 15:53] VITALS: BP 139/65; PULSE 75; TEMP 97.1
== END 2018-04-21 17:15 | disposition home or self-care (01) | DRG 246 ==
LOC: EC 20:26 → SUPCPDRO 20:26 → 6SEL 21:22 → 6ICU 22:17 → 6SEL 04-20 17:57
PROVIDERS: ADMIT Hospitalist; ATTEND Hospitalist
PROC: 027035Z Dilation of Coronary Artery, One Artery with Two Drug-eluting Intraluminal Devices, Percutaneous Approach (ICD-10-PCS; principal; 2018-04-19)
PROC: 4A023N7 Measurement of Cardiac Sampling and Pressure, Left Heart, Percutaneous Approach (ICD-10-PCS; 2018-04-19)
PROC: B2111ZZ Fluoroscopy of Multiple Coronary Arteries using Low Osmolar Contrast (ICD-10-PCS; 2018-04-19)
DX: I21.3 ST elevation (STEMI) myocardial infarction of unspecified site (principal); I50.21 Acute systolic (congestive) heart failure; N17.9 Acute kidney failure, unspecified; E78.5 Hyperlipidemia, unspecified; I11.0 Hypertensive heart disease with heart failure; I25.10 Atherosclerotic heart disease of native coronary artery without angina pectoris; I25.2 Old myocardial infarction; I80.9 Phlebitis and thrombophlebitis of unspecified site; M19.90 Unspecified osteoarthritis, unspecified site; Z79.899 Other long term (current) drug therapy; Z79.82 Long term (current) use of aspirin; Z95.5 Presence of coronary angioplasty implant and graft; Z87.01 Personal history of pneumonia (recurrent); Z82.49 Family history of ischemic heart disease and other diseases of the circulatory system
CPT/HCPCS: 36415; 71045; 71046; 71250; 80048; 80053; 80061; 82550; 82553; 83690; 83735; 83880; 84100; 84484; 85025; 85027; 85049; 85347; 85610; 85730; 93005; 93306; 93458; 96365; 96375; 96376; 99291

== ENCOUNTER 2018-10-05 05:33 | Inpatient (IN) | payer MEDICARE ==
[2018-10-05] MEDS ORDERED: NITROGLYCERIN OINT 1 INCH/GM PACKET TOPICAL STA (05:42)
--- NOTE | 2018-10-05 05:56 | ED ---
Chest Pain HPI - General Chief Complaint: Chest Pain Stated Complaint: chest pain Time Seen by Provider: 10/05/18 05:40 Source: patient Mode of arrival: ambulatory Limitations: no limitations - History of Present Illness Initial Comments: Carlos is a pleasant 87-year-old female is brought to the ED today by EMS for evaluation of chest pain. Patient has a significant history of coronary artery disease with a STEMI in April 2018 with 2 stents placed. Patient reports she's been compliant with her medications including Plavix and her antihypertensives. Patient reports that she's been unable to sleep throughout the night tonight due to pain. Pain is described as a pressure in the retrosternum with the of the bilateral arms. reports she didn't sleep all night she complained of feeling restless and this morning advised them that she was having chest pain at which time he contacted EMS. In route to the hospital patient was given aspirin and nitro. Patient does report that her pain improved after nitro. EMS reported the EKG was nonischemic however she was noted to be profound hypertensive with blood pressures greater than 200 systolic. - Related Data Home Medications Medication Instructions Recorded Confirmed RX: Ascorbic Acid [Vitamin C] 1,000 mg PO DAILY 03/27/17 04/19/18 RX: Lisinopril [Prinivil] 20 mg PO DAILY 03/27/17 04/19/18 RX: [place]-3 Fatty Acids/Fish Oil 1 cap PO DAILY 03/27/17 04/19/18 [Fish Oil 1,000 mg Softgel] RX: Loratadine [Claritin] 10 mg PO DAILY 04/19/18 04/19/18 RX: Melatonin 5 mg PO HS 04/19/18 04/19/18 RX: Multivitamins, Thera 1 tab PO DAILY 04/19/18 04/19/18 [Multivitamin (formulary)] Previous Rx's Medication Instructions Recorded RX: Acetaminophen Tab [Tylenol] 100 mg PO TID #21 04/21/18 RX: Aspirin 81 mg PO DAILY 30 Days #30 chewable 04/21/18 RX: Atorvastatin [Lipitor] 80 mg PO DAILY 30 Days #30 tab 04/21/18 RX: Isosorbide Mononitrate ER 30 mg PO DAILY 30 Days #30 tab 04/21/18 [Imdur] RX: Metoprolol Tartrate 25 mg PO BID 30 Days #60 tab 04/21/18 Ticagrelor [Brilinta] 90 mg PO BID 30 Days #60 tab 04/21/18 Allergies Allergy/AdvReac Type Severity Reaction Status Date / Time No Known Allergies Allergy Verified 10/05/18 07:15 Review of Systems ROS Statement: Those systems with pertinent positive or pertinent negative responses have been documented in the HPI. ROS Other: All systems not noted in ROS Statement are negative. EKG Findings - EKG Comments: EKG Findings:: EKG was obtained at 5:38 AM, rate is 94 rhythm is sinus there is a normal axis, there are normal intervals, IL 176, QRS 94, QTC is 462. There are ST depressions in V45 and 6 concerning for ischemia but no acute ST elevations. Past Medical History Past Medical History: Coronary Artery Disease (CAD), Chest Pain / Angina, Hyperlipidemia, Myocardial Infarction ([place]), Pneumonia Additional Past Medical History / Comment(s): Coronary artery disease with a previous history of coronary intervention and stenting, hypertension, hyperlipidemia, osteoarthritis. Last Myocardial Infarction Date:: unk History of Any Multi-Drug Resistant Organisms: None Reported Past Surgical History: Heart Catheterization With Stent Additional Past Surgical History / Comment(s): pt voices "two to three" previous stents, unsure of date Past Anesthesia/Blood Transfusion Reactions: No Reported Reaction Date of Last Stent Placement:: unk Past Psychological History: No Psychological Hx Reported Smoking Status: Never smoker Past Alcohol Use History: None Reported Past Drug Use History: None Reported - Past Family History Mother Family Medical History: Hyperlipidemia, Hypertension General Exam - General Exam Comments Initial Comments: Physical Exam GENERAL: Patient is well-developed and well-nourished. Patient is nontoxic and well- hydrated and is in no distress. HENT: Normocephalic, Atraumatic. EYES: PERRL, EOMI PULMONARY: Unlabored respirations. No audible rales rhonchi or wheezing was noted. CARDIOVASCULAR: There is a regular rate and rhythm without any murmurs gallops or rubs. ABDOMEN: Soft and nontender with normal bowel sounds. SKIN: Skin is clear with no lesions or rashes and otherwise unremarkable. : Deferred NEUROLOGIC: Patient is alert and oriented x3. Moving all extremities spontaneously MUSCULOSKELETAL: Normal extremities with adequate strength and full range of motion. No lower extremity swelling or edema. No calf tenderness. PSYCHIATRIC: Normal psychiatric evaluation. Limitations: no limitations Limitations: no limitations Course Vital Signs 10/05/18 10/05/18 10/05/18 05:37 06:00 07:18 Temperature 98 F Pulse Rate 95 76 76 Respiratory 18 18 18 Rate Blood Pressure 227/93 194/79 188/88 O2 Sat by Pulse 96 96 96 Oximetry Chest Pain MDM - MDM the patient was seen and evaluated history was concerning for cardiac etiology of chest pain a sign vital signs reviewed patient was noted to be hypertensive Patient received aspirin and nitro prior to arrival Nitro ointment was ordered as well as a full cardiac workup next line next line EKG with no acute ST elevations however ST depressions in the lateral leads concerning for ischemic changes patient does take aspirin and Plavix stroke on is mildly elevated Patient's blood pressure still elevated all oral home medications ordered Patient care discussed with found physician Dr. Aburto agrees with plan for admission for cardiac evaluation Disposition Clinical Impression: Chest pain Disposition: ADMITTED IP TO THIS HOSP
[2018-10-05 05:59] LABS: HCT 40.2 % (34.0-46.0); HGB 13.3 gm/dL (11.4-16.0); MCH 30.7 pg (25.0-35.0); MCHC 33.2 g/dL (31.0-37.0); MCV 92.4 fL (80.0-100.0); RBC 4.35 m/uL (3.80-5.40); RDW 14.9 % (11.5-15.5); WBC 6.3 k/uL (3.8-10.6)
[2018-10-05 06:00] LABS: Basophils # (A) 0.1 k/uL (0-0.2); Basophils % (A) 1 %; Eosinophils # (A) 0.3 k/uL (0-0.7); Eosinophils % (A) 5 %; Lymphocytes # (A) 2.1 k/uL (1.0-4.8); Lymphocytes % (A) 33 %; Mean Platelet Volume 6.1; Monocytes # (A) 0.5 k/uL (0-1.0); Monocytes % (A) 7 %; Neutrophils # (A) 3.3 k/uL (1.3-7.7); Neutrophils % (A) 52 %; Platelet Count 197 k/uL (150-450)
[2018-10-05 06:11] LABS: Partial Thromboplastin Time 23.9 sec (22.0-30.0); Prothrombin Time 10.4 sec (9.0-12.0)
[2018-10-05 06:13] LABS: Albumin 3.8 g/dL (3.5-5.0); Calcium 9.2 mg/dL (8.4-10.2); Potassium 4.4 mmol/L (3.5-5.1); Total Bilirubin 0.3 mg/dL (0.2-1.3); Total Protein 7.1 g/dL (6.3-8.2)
[2018-10-05 06:33] LABS: Creatine Kinase MB 2.2 ng/mL (0.0-2.4)
[2018-10-05 06:37] LABS: Troponin I 0.057 ng/mL (0.000-0.034)
[2018-10-05] MEDS ORDERED: NITROGLYCERIN SL TABS 0.4 MG TAB SUBLINGUAL PRN (06:50)
--- NOTE | 2018-10-05 06:50 | XR ---
EXAM: XR Chest, 2 Views CLINICAL HISTORY: Chest Pain TECHNIQUE: Frontal and lateral views of the chest. COMPARISON: 04/19/2018. FINDINGS: Lungs: Coarse interstitial markings persist with interval resolution of the previously suspected left basilar opacity. Pleural space: No appreciable pleural effusion is noted. No pneumothorax. Heart: The cardiac silhouette is within normal limits. Mediastinum: The trachea is midline. The mediastinal contours are stable. Mild atherosclerotic calcification of the aorta is noted. Bones/joints: Unremarkable. IMPRESSION: Chronic senescent interstitial changes suspected. No focal consolidation. No large pleural effusion or pneumothorax.
[2018-10-05] MEDS ORDERED: LISINOPRIL 20 MG TAB PO SCH (06:53)
[2018-10-05] MEDS ORDERED: ISOSORBIDE MONONITRATE ER 30 MG TAB.ER.24H PO SCH (06:53)
[2018-10-05] MEDS: ISOSORBIDE MONONITRATE ER 30 MG TAB.ER.24H PO SCH (07:16)
[2018-10-05] MEDS: LISINOPRIL 20 MG TAB PO SCH (07:16)
[2018-10-05] MEDS: METOPROLOL TARTRATE 25 MG TAB PO SCH ×2 (07:16→21:05)
[2018-10-05] MEDS ORDERED: ACETAMINOPHEN TAB 325 MG TAB PO PRN (08:40)
[2018-10-05] MEDS ORDERED: NALOXONE 0.4 MG/ML 1 ML VIAL IV PRN (08:40)
[2018-10-05] MEDS ORDERED: ONDANSETRON 4 MG/2 ML VIAL IVP PRN (08:40)
[2018-10-05] MEDS ORDERED: DOCUSATE 100 MG CAP PO PRN (08:40)
[2018-10-05] MEDS ORDERED: HEPARIN SODIUM,PORCINE 5,000 UNIT/ML 1 ML VIAL IV PRN (08:42)
--- NOTE | 2018-10-05 08:59 | P.HPIM ---
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 Patient arrived via EMS and had been found to have elevated blood pressure in Route with systolic blood pressure greater than 200. In the ER she underwent an extensive evaluation. Her initial vital signs her blood pressure was 227/93. Initial troponin was positive at 0.057. She has chronic renal disease and her creatinine was at her baseline of 1.43. Initial EKG is reviewed by myself revealed normal sinus rhythm at a rate of 94, normal access, NM 176, QT 462, QRS 94. There is T-wave inversion in aVL. She was given a dose of aspirin and risk the hospital. She had Nitropaste placed. We were called to accept the patient for admission. Patient seen and examined at bedside. She states that around 2 in the morning she started having chest pain. It was right sided and associated with tingling in her arms and up into her neck. She did not have any associated shortness of breath, lightheadedness, nausea, diaphoresis, or palpitations. She states it lasted until her blood pressure came down. It was a squeezing feeling. This was unlike when she had had her stents. She reports that she has not seen Dr. Jane's and she was discharged in April 2018. She follows with Dr. Stoner as her primary care physician. She denies any changes in her medications and has not missed any doses of medications. Recently she's been under slightly more stress that she's been having to help her after he fell and broke 2 ribs. She denies any recent cough, cold, fever, flu. She's been eating and drinking well and denies any recent weight loss. Review of Systems Pertinent positives and negatives as discussed in HPI, a complete review of systems was performed and all other systems are negative. Past Medical History Past Medical History: Coronary Artery Disease (CAD), Chest Pain / Angina, Hyperlipidemia, Myocardial Infarction ([place]), Pneumonia Additional Past Medical History / Comment(s): Coronary artery disease with a previous history of coronary intervention and stenting, hypertension, hyperlipidemia, osteoarthritis. Last Myocardial Infarction Date:: unk History of Any Multi-Drug Resistant Organisms: None Reported Past Surgical History: Heart Catheterization With Stent Additional Past Surgical History / Comment(s): several stents last in 05/06 to first obtuse marginal artery Past Anesthesia/Blood Transfusion Reactions: No Reported Reaction Date of Last Stent Placement:: unk Past Psychological History: No Psychological Hx Reported Smoking Status: Never smoker Past Alcohol Use History: None Reported Past Drug Use History: None Reported Additional History: lives with , no assistive devices - Past Family History Mother Family Medical History: Hyperlipidemia, Hypertension Medications and Allergies Home Medications Medication Instructions Recorded Confirmed Type Ascorbic Acid [Vitamin C] 1,000 mg PO DAILY 03/27/17 04/19/18 History Lisinopril [Prinivil] 20 mg PO DAILY 03/27/17 04/19/18 History [place]-3 Fatty Acids/Fish Oil [Fish 1 cap PO DAILY 03/27/17 04/19/18 History Oil 1,000 mg Softgel] Loratadine [Claritin] 10 mg PO DAILY 04/19/18 04/19/18 History Melatonin 5 mg PO HS 04/19/18 04/19/18 History Multivitamins, Thera [Multivitamin 1 tab PO DAILY 04/19/18 04/19/18 History (formulary)] Acetaminophen Tab [Tylenol] 100 mg PO TID #21 04/21/18 04/19/18 Rx Aspirin 81 mg PO DAILY 30 Days #30 chewable 04/21/18 Rx Atorvastatin [Lipitor] 80 mg PO DAILY 30 Days #30 tab 04/21/18 Rx Isosorbide Mononitrate ER [Imdur] 30 mg PO DAILY 30 Days #30 tab 04/21/18 Rx Metoprolol Tartrate 25 mg PO BID 30 Days #60 tab 04/21/18 Rx Ticagrelor [Brilinta] 90 mg PO BID 30 Days #60 tab 04/21/18 Rx Allergies Allergy/AdvReac Type Severity Reaction Status Date / Time No Known Allergies Allergy Verified 10/05/18 07:15 Physical Exam Osteopathic Statement: *. No significant issues noted on an osteopathic structural exam other than those noted in the History and Physical/Consult. Vitals: Vital Signs Temp Pulse Resp BP Pulse Ox 10/05/18 07:18 76 18 188/88 96 10/05/18 06:00 76 18 194/79 96 10/05/18 05:37 98 F 95 18 227/93 96 Intake and Output 10/04/18 10/05/18 10/05/18 22:59 06:59 14:59 Other: Weight 70.307 kg General: non toxic, mild distress, appears at stated age, normal weight Derm: no unusual rashes/lesions no unusual ecchymoses, warm, dry Head: atraumatic, normocephalic, symmetric Eyes: EOMI, no lid lag, anicteric sclera, pupils equal round reactive to light ENT: Nose and ears atraumatic, no thrush, no pharyngeal erythema Neck: No thyromegaly, no cervical lymphadenopathy, trachea midline, supple Mouth: no lip lesion, mucus membranes moist Cardiovascular: + Tenderness to palpation over right chest wall, S1S2 reg, no murmur, positive posterior tibial pulse bilateral, trace edema bilateral lower extremities, capillary refill less than 2 seconds Lungs: Decreased breath sounds bilateral bases, no rhonchi, no rales , no accessory muscle use Abdominal: soft, nontender to palpation, no guarding, no appreciable organomegaly, normal bowel sounds Ext: no gross muscle atrophy, muscle strength 5 out of 5 in all 4 extremities grossly, no contractures, Neuro: CN II-XI grossly intact, light touch intact all 4 extremities, finger to nose within normal limits, Psych: Alert, oriented, appropriate affect Results CBC & Chem 7: 10/05/18 05:43 10/05/18 05:43 Labs: Abnormal Lab Results - Last 24 Hours (Table) 10/05/18 10/05/18 Range/Units 05:43 05:43 Chloride 108 H (98-107) mmol/L BUN 31 H (7-17) mg/dL Creatinine 1.43 H (0.52-1.04) mg/dL Glucose 113 H (74-99) mg/dL Alkaline Phosphatase 140 H (38-126) U/L Troponin I 0.057 H* (0.000-0.034) ng/mL Chest x-ray: report reviewed Thrombosis Risk Factor Assmnt - DVT/VTE Prophylaxis DVT/VTE Prophylaxis: Pharmacologic Prophylaxis ordered Assessment and Plan Assessment: Chest pain with elevated troponins -Likely secondary to hypertensive emergency -Blood pressure is better controlled on her home medications have been resumed including: Imdur, lisinopril, Lopressor -Heparin drip -Serial troponins -Cardiology consultation -Nothing by mouth until evaluated by cardiology -Cholesterol profile was obtained 5 months ago and showed a total cholesterol 159, LDL 80, HDL 48 -Aspirin, nitro paste, maintain Brillenta, Lipitor Hypertensive emergency -Now improved -Continue home medications as listed above -Follow blood pressures Systolic cardiomyopathy with ejection fraction 45-50% -Continue with lisinopril, Lopressor, and Imdur -Monitor fluid status closely -Cardiology recommendations Dyslipidemia -Continue with Lipitor Arthritis -As needed Tylenol The patient is placed in observation with an anticipated less than 2 per night stay for evaluation of chest pain. Surrogate decision-maker: , sarai CODE STATUS:Full DVT prophylaxis: On heparin gtt Discussed with: Patient, floatman 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
[2018-10-05] MEDS ORDERED: TICAGRELOR 90 MG TAB PO SCH ×2 (09:00→21:00)
[2018-10-05] MEDS: HEPARIN SOD,PORK IN 0.45% NACL 25,000 UNIT in 0.45% NACL 1 250ML.BAG IV SCH (11:06)
[2018-10-05 13:49] LABS: Creatine Kinase MB 4.4 ng/mL (0.0-2.4)
[2018-10-05 14:21] LABS: Troponin I 0.55 ng/mL (0.000-0.034)
[2018-10-05] MEDS: MULTIVITAMINS, THERA 1 EACH TAB PO SCH (15:29)
[2018-10-05] MEDS: LORATADINE 10 MG TAB PO SCH (15:56)
[2018-10-05 18:45] LABS: Creatine Kinase MB 4.6 ng/mL (0.0-2.4)
[2018-10-05 18:54] LABS: Troponin I 0.595 ng/mL (0.000-0.034)
[2018-10-05] MEDS: MELATONIN 5 MG TABLET PO SCH (21:05)
[2018-10-05] MEDS: ATORVASTATIN 80 MG TAB PO SCH (21:05)
[2018-10-06 06:34] LABS: Basophils # (A) 0.1 k/uL (0-0.2); Basophils % (A) 1 %; Eosinophils # (A) 0.3 k/uL (0-0.7); Eosinophils % (A) 6 %; HGB 11.7 gm/dL (11.4-16.0); Lymphocytes # (A) 2.4 k/uL (1.0-4.8); Lymphocytes % (A) 44 %; MCH 31.2 pg (25.0-35.0); MCHC 33.4 g/dL (31.0-37.0); MCV 93.3 fL (80.0-100.0); Mean Platelet Volume 6.4; Monocytes # (A) 0.3 k/uL (0-1.0); Monocytes % (A) 6 %; Neutrophils # (A) 2.2 k/uL (1.3-7.7); Neutrophils % (A) 41 %; Platelet Count 164 k/uL (150-450); RBC 3.75 m/uL (3.80-5.40); WBC 5.4 k/uL (3.8-10.6)
[2018-10-06 07:44] LABS: Calcium 8.8 mg/dL (8.4-10.2); Potassium 4.4 mmol/L (3.5-5.1)
--- NOTE | 2018-10-06 08:43 | P.CRDCN ---
History of Present Illness Consult date: 10/06/18 Requesting physician: Liliana Aburto Consult reason: chest pain Chief complaint: Chest pain History of present illness: This is a pleasant 87-year-old female who follows with Dr. MARI Jane in the office. She has a known history of coronary artery disease with prior PCI's performed in [place] and [place], most recently the patient was in the hospital in April of last year which time she underwent successful stenting of the first obtuse marginal branch by Dr. Singleton. She also has history of hypertension, hyperlipidemia. She presents to the hospital on this occasion with symptoms of chest pain located in the lower mid to right area of her chest , she states that it was persistent throughout the night, around 4 AM she decided to come to the emergency room for further evaluation and treatment. Her EKG on presentation here showed a normal sinus rhythm with ST-T wave changes noted in the lateral leads. Chest x-ray showed chronic changes. I pressure on arrival here 227/93 with a heart rate in the 90s, 96% on room air. Let pressure this morning 184/80 with a heart rate in the 60s, 96% on 2 L of oxygen. White blood cell count 5.4, hemoglobin 11.7, platelet count 164. Sodium 142, potassium 4.4, BUN 26 and creatinine 1.4. Initial troponin on presentation here 0.057, subsequent troponins 0.55 and 0.59. At the time of my examination this morning she is currently chest pain-free, sitting up in her chair at bedside. Past Medical History Past Medical History: Coronary Artery Disease (CAD), Chest Pain / Angina, Hyperlipidemia, Hypertension, Myocardial Infarction (CO), Osteoarthritis (OA), Pneumonia, Renal Disease Additional Past Medical History / Comment(s): patient has 5 stents Last Myocardial Infarction Date:: Apr 2018 History of Any Multi-Drug Resistant Organisms: None Reported Past Surgical History: Heart Catheterization With Stent Additional Past Surgical History / Comment(s): several stents last in 05/06 to first obtuse marginal artery Past Anesthesia/Blood Transfusion Reactions: No Reported Reaction Date of Last Stent Placement:: unk Past Psychological History: No Psychological Hx Reported Smoking Status: Never smoker Past Alcohol Use History: None Reported Past Drug Use History: None Reported - Past Family History Mother Family Medical History: Hyperlipidemia, Hypertension Medications and Allergies Home Medications Medication Instructions Recorded Confirmed Type Ascorbic Acid [Vitamin C] 1,000 mg PO DAILY 03/27/17 10/05/18 History Lisinopril [Prinivil] 20 mg PO DAILY 03/27/17 10/05/18 History Multivitamins, Thera [Multivitamin 1 tab PO DAILY 04/19/18 10/05/18 History (formulary)] Aspirin 81 mg PO DAILY 30 Days #30 chewable 04/21/18 10/05/18 Rx Atorvastatin [Lipitor] 80 mg PO DAILY 30 Days #30 tab 04/21/18 10/05/18 Rx Isosorbide Mononitrate ER [Imdur] 30 mg PO DAILY 30 Days #30 tab 04/21/18 Rx Metoprolol Tartrate 25 mg PO BID 30 Days #60 tab 04/21/18 10/05/18 Rx Cholecalciferol [Vitamin D3] 5,000 unit PO DAILY 10/05/18 10/05/18 History Clopidogrel [Plavix] 75 mg PO DAILY 10/05/18 10/05/18 History Allergies Allergy/AdvReac Type Severity Reaction Status Date / Time No Known Allergies Allergy Verified 10/05/18 07:15 Physical Exam Vitals: Vital Signs Temp Pulse Pulse Resp BP BP Pulse Ox 10/06/18 04:00 69 18 159/65 99 10/05/18 23:57 70 18 10/05/18 23:56 70 18 115/56 96 10/05/18 20:00 98.3 F 78 18 156/67 92 L 10/05/18 14:48 75 16 172/77 98 10/05/18 13:00 66 20 145/68 99 10/05/18 12:00 64 15 155/71 98 10/05/18 11:08 68 16 115/63 92 L Intake and Output 10/05/18 10/06/18 10/06/18 22:59 06:59 14:59 Intake Total 240 Balance 240 Intake: Oral 240 Other: Voiding Method Toilet Toilet # Voids 0 1 1 Weight 72 kg PHYSICAL EXAMINATION: GENERAL: 87-year-old female in no acute distress at the time of my examination HEENT: Head is atraumatic, normocephalic. Pupils equal, round. Sclera anicteric. Conjunctiva are clear. Mucous membranes of the mouth are moist. Neck is supple. There is no elevated jugular venous pressure. No carotid bruit is heard. HEART EXAMINATION: Heart S1, S2 systolic murmur heard . CHEST EXAMINATION: Lungs are clear to auscultation and precussion. No chest wall tenderness is noted on palpation or with deep breathing. ABDOMEN: Soft, nontender. Bowel sounds are heard. No organomegaly noted. EXTREMITIES: 2+ peripheral pulses with no evidence of peripheral edema and no calf tenderness noted. NEUROLOGIC patient is awake, alert and oriented 3 . . Results 10/06/18 06:00 10/06/18 06:00 Cardiac Enzymes 10/05/18 10/05/18 Range/Units 12:21 17:57 CK-MB (CK-2) 4.4 H 4.6 H (0.0-2.4) ng/mL Troponin I 0.550 H* 0.595 H* (0.000-0.034) ng/mL Coagulation 10/05/18 10/05/18 10/06/18 Range/Units 15:05 22:34 06:00 APTT 43.6 H 58.5 H 70.8 H (22.0-30.0) sec Lipids 10/06/18 Range/Units 06:00 Triglycerides 227 H (<150) mg/dL Cholesterol 174 (<200) mg/dL HDL Cholesterol 33 L (40-60) mg/dL CBC 10/06/18 Range/Units 06:00 WBC 5.4 (3.8-10.6) k/uL RBC 3.75 L (3.80-5.40) m/uL Hgb 11.7 (11.4-16.0) gm/dL Hct 35.0 (34.0-46.0) % Plt Count 164 (150-450) k/uL Comprehensive Metabolic Panel 10/06/18 Range/Units 06:00 Sodium 142 (137-145) mmol/L Potassium 4.4 (3.5-5.1) mmol/L Chloride 112 H (98-107) mmol/L Carbon Dioxide 26 (22-30) mmol/L BUN 26 H (7-17) mg/dL Creatinine 1.40 H (0.52-1.04) mg/dL Glucose 94 (74-99) mg/dL Calcium 8.8 (8.4-10.2) mg/dL Current Medications Generic Name Dose Route Start Last Admin Trade Name Freq PRN Reason Stop Dose Admin Acetaminophen 650 mg 10/05/18 08:40 Tylenol Tab PO Q6HR PRN Mild Pain or Fever > 100.5 Aspirin 81 mg 10/06/18 09:00 Aspirin PO DAILY [facility] Atorvastatin Calcium 80 mg 10/05/18 21:00 10/05/18 21:05 Lipitor PO 80 mg HS [facility] Administration Clopidogrel Bisulfate 75 mg 10/06/18 09:00 Plavix PO DAILY [facility] Docusate Sodium 100 mg 10/05/18 08:40 Colace PO BID PRN Constipation Heparin Sodium (Porcine) 0 unit 10/05/18 08:42 Heparin IV PER PROTOCOL PRN Low PTT Protocol Heparin Sodium/Sodium Chloride 250 mls @ 8.43 mls/hr 10/05/18 08:45 10/05/18 11:06 25,000 unit/ Sodium Chloride IV 12 units/kg/hr .Q24H LOIS 8.43 mls/hr Administration Protocol 12 UNITS/KG/HR Isosorbide Mononitrate 30 mg 10/05/18 07:00 10/05/18 07:16 Imdur PO 30 mg DAILY [facility] Administration Lisinopril 20 mg 10/05/18 07:00 10/05/18 07:16 Zestril PO 20 mg DAILY [facility] Administration Loratadine 10 mg 10/05/18 09:00 10/05/18 15:56 Claritin PO 10 mg DAILY [facility] Administration Melatonin 5 mg 10/05/18 21:00 10/05/18 21:05 Melatonin PO 5 mg HS [facility] Administration Metoprolol Tartrate 25 mg 10/05/18 06:53 10/05/18 21:05 Lopressor PO 25 mg BID [facility] Administration Multivitamins 1 each 10/05/18 12:00 10/05/18 15:29 Theragran PO 1 each DAILY@1200 [facility] Administration Naloxone HCl 0.2 mg 10/05/18 08:40 Narcan IV Q2M PRN Opioid Reversal Nitroglycerin 0.4 mg 10/05/18 06:50 Nitrostat SUBLINGUAL Q5M PRN Chest Pain Ondansetron HCl 4 mg 10/05/18 08:40 Zofran IVP Q8HR PRN Nausea And Vomiting Intake and Output 10/05/18 10/06/18 10/06/18 22:59 06:59 14:59 Intake Total 240 Balance 240 Intake: Oral 240 Other: Voiding Method Toilet Toilet # Voids 0 1 1 Weight 72 kg 10/06/18 06:00 10/06/18 06:00 EKG Interpretations (text) EKG shows normal sinus rhythm with nonspecific ST-T wave changes noted in the lateral leads. Assessment and Plan Plan: Assessment and plan #1 symptoms of chest discomfort with abnormality in troponin suggesting acute coronary syndrome. EKG shows normal sinus rhythm with nonspecific ST-T wave changes noted in the lateral leads. #2 recent stenting of the first obtuse marginal and April 2018 prior to that patient has had multiple stent placements #3 hypertension, uncontrolled #4 hyperlipidemia Plan We will continue the patient on aspirin, Lipitor, Plavix, IV heparin, lisinopril , Imdur, metoprolol, and Nitropaste. We will repeat her echocardiogram with Doppler study. Her echo performed in April of last year showed an ejection fraction of 45-50%. Patient has been advised that she may need to undergo a repeat cardiac catheterization, the risks and benefits again were explained to the patient in detail. We will speak with Dr. Thao Jane in further recommendations will be made. DNP note has been reviewed, I agree with a documented findings and plan of care. Patient was seen and examined.
[2018-10-06] MEDS: METOPROLOL TARTRATE 25 MG TAB PO SCH ×2 (08:49→20:52)
[2018-10-06] MEDS: LISINOPRIL 20 MG TAB PO SCH (08:49)
[2018-10-06] MEDS: LORATADINE 10 MG TAB PO SCH (08:50)
[2018-10-06] MEDS: ISOSORBIDE MONONITRATE ER 30 MG TAB.ER.24H PO SCH (08:50)
[2018-10-06] MEDS: CLOPIDOGREL 75 MG TAB PO SCH (08:51)
[2018-10-06] MEDS: ASPIRIN 81 MG PO SCH (08:51)
[2018-10-06] MEDS ORDERED: ASPIRIN 325 MG TAB PO SCH (09:00)
[2018-10-06] MEDS ORDERED: ASPIRIN 325 MG TAB PO STA (10:25)
[2018-10-06] MEDS ORDERED: ATORVASTATIN 80 MG TAB PO STA (10:25)
[2018-10-06] MEDS ORDERED: ALPRAZolam 0.5 MG TAB PO PRN (10:25)
[2018-10-06] MEDS ORDERED: ALPRAZolam 0.25 MG TAB PO PRN (10:25)
[2018-10-06] MEDS ORDERED: SODIUM CHLORIDE 0.9% 1,000 ML in EMPTY BAG 1 BAG IV ONE (10:25)
[2018-10-06] MEDS ORDERED: NITROGLYCERIN SL TABS 0.4 MG TAB SUBLINGUAL PRN ×2 (10:25→14:34)
[2018-10-06] MEDS ORDERED: amLODIPine 5 MG TAB PO STA (10:49)
[2018-10-06] MEDS: HEPARIN SOD,PORK IN 0.45% NACL 25,000 UNIT in 0.45% NACL 1 250ML.BAG IV SCH (10:56)
--- NOTE | 2018-10-06 10:58 | ECHOF ---
Referral Reason:chest pain, elevated trop MEASUREMENTS -------- HEIGHT: 157.5 cm WEIGHT: 71.7 kg BP: 159/65 IVSd: 1.3 cm (0.6 - 1.1) LVIDd: 3.8 cm (3.9 - 5.3) LVPWd: 1.5 cm (0.6 - 1.1) IVSs: 1.7 cm LVIDs: 2.6 cm LVPWs: 1.7 cm LAESV Index (A-L): 21.77 ml/m Ao Diam: 3.2 cm (2.0 - 3.7) AV Cusp: 2.0 cm (1.5 - 2.6) LA Diam: 3.2 cm (2.7 - 3.8) MV EXCURSION: 15.271 mm (> 18.000) MV EF SLOPE: 111 mm/s (70 - 150) EPSS: 0.7 cm MV E Zhang: 1.23 m/s MV DecT: 150 ms MV A Zhang: 0.80 m/s MV E/A Ratio: 1.53 AR PHT: 200 ms RAP: 5.00 mmHg RVSP: 27.77 mmHg FINDINGS -------- Sinus rhythm. This was a technically good study. The left ventricular size is normal. There is mild concentric left ventricular hypertrophy. Overa ll left ventricular systolic function is mildly impaired with, an EF between 45 - 50 %. Basal infer olateral hypokinesis. The right ventricle is normal in size. The left atrial size is normal. The right atrium is normal in size. Trace amount of aortic regurgitation. The mitral valve leaflets are mildly thickened. Severe mitral regurgitation is present. Mild tricuspid regurgitation present. The right ventricular systolic pressure, as measured by Doppl er, is 27.77mmHg. Trace/mild (physiologic) pulmonic regurgitation. The aortic root size is normal. Normal inferior vena cava with normal inspiratory collapse consistent with estimated right atrial pre ssure of 5 mmHg. The pericardium is normal. CONCLUSIONS -------- 1. Sinus rhythm. 2. This was a technically good study. 3. The left ventricular size is normal. 4. There is mild concentric left ventricular hypertrophy. 5. Overall left ventricular systolic function is mildly impaired with, an EF between 45 - 50 %. 6. Basal inferolateral hypokinesis. 7. The right ventricle is normal in size. 8. The left atrial size is normal. 9. The right atrium is normal in size. 10. Trace amount of aortic regurgitation. 11. The mitral valve leaflets are mildly thickened. 12. Severe mitral regurgitation is present. 13. Mild tricuspid regurgitation present. 14. The right ventricular systolic pressure, as measured by Doppler, is 27.77mmHg. 15. Trace/mild (physiologic) pulmonic regurgitation. 16. The aortic root size is normal. 17. Normal inferior vena cava with normal inspiratory collapse consistent with estimated right atrial pressure of 5 mmHg. 18. The pericardium is normal. MANAGER SURGICAL: Kendal Zuniga RDCS
[2018-10-06] MEDS ORDERED: IV FLUID CONTINUATION 500 ML IV ONE (12:36)
[2018-10-06] MEDS ORDERED: MIDAZOLAM 2 MG/2 ML VIAL IV ONE (12:38)
[2018-10-06] MEDS ORDERED: LIDOCAINE 1% INJ 10MG/ML (10 ML MDV) SQ ONE (12:42)
[2018-10-06] MEDS: NITROGLYCERIN SL TABS 0.4 MG TAB SUBLINGUAL ONE ×2 (12:42→13:19)
[2018-10-06] MEDS ORDERED: fentaNYL (PF) 50 MCG/ML 2 ML AMP IV ONE (12:48)
[2018-10-06] MEDS ORDERED: BIVALIRUDIN 250 MG in SODIUM CHLORIDE 0.9% 50 ML IV ONE ×2 (12:58→14:08)
[2018-10-06] MEDS ORDERED: BIVALIRUDIN BOLUS 250 MG/50 ML IV ONE (12:58)
[2018-10-06] MEDS ORDERED: IOPAMIDOL-250 100ML BTL INTRAARTER ONE ×2 (13:07→14:25)
[2018-10-06] MEDS ORDERED: ONDANSETRON 4 MG/2 ML VIAL IVP ONE (13:27)
[2018-10-06] MEDS: NITROGLYCERIN 1000MCG/10ML SYRINGE INTRACORON ONE ×2 (14:22→14:24)
[2018-10-06] MEDS ORDERED: amLODIPine 5 MG TAB ONE (14:32)
[2018-10-06] MEDS ORDERED: RX INFO: IV CONTRAST WAS GIVEN 1 EACH MISC MISCELLANE PRN (14:34)
[2018-10-06] MEDS ORDERED: ATROPINE SULFATE 0.1 MG/ML 10ML SYRINGE IV PRN (14:34)
[2018-10-06] MEDS ORDERED: MAG HYDROX/AL HYDROX/SIMETH 30 ML CUP PO PRN (14:34)
[2018-10-06] MEDS ORDERED: ZOLPIDEM 5 MG TAB PO PRN (14:34)
[2018-10-06] MEDS ORDERED: CLOPIDOGREL 75 MG TAB PO ONE (14:35)
[2018-10-06] MEDS ORDERED: amLODIPine 5 MG TAB PO ONE (14:35)
[2018-10-06] MEDS ORDERED: ENALAPRILAT 1.25 MG/ML 1 ML VIAL IVP STA (15:28)
--- NOTE | 2018-10-06 16:13 | P.PN ---
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 Patient arrived via EMS and had been found to have elevated blood pressure in Route with systolic blood pressure greater than 200. In the ER she underwent an extensive evaluation. Her initial vital signs her blood pressure was 227/93. Initial troponin was positive at 0.057. She has chronic renal disease and her creatinine was at her baseline of 1.43. Initial EKG is reviewed by myself revealed normal sinus rhythm at a rate of 94, normal access, GA 176, QT 462, QRS 94. There is T-wave inversion in aVL. She was given a dose of aspirin and risk the hospital. She had Nitropaste placed. She was subsequently admitted to the cardiac floor. Her troponins remained at 0.5. Her chest pain resolved. Her blood pressure improved. Patient seen and examined at bedside. She is no longer having any chest pain, shortness of breath, nausea, vomiting, or diarrhea. She denies any edema. She is preparing for cardiac catheterization this afternoon. Objective - Vital Signs Vital signs: Vital Signs Temp 96.8 F L 10/06/18 08:00 Pulse 64 10/06/18 12:00 Resp 16 10/06/18 10:25 BP 170/70 10/06/18 12:00 Pulse Ox 100 10/06/18 10:25 Intake & Output 10/05/18 10/06/18 10/06/18 18:59 06:59 18:59 Intake Total 240 422.4 Balance 240 422.4 Weight 72 kg Intake: IV 190.4 Intake, IV Titration 232 Amount Heparin Sod,Pork in 0.45% 28 NaCl 25,000 unit In 0.45 % NaCl 1 250ml.bag @ 12 UNITS/KG/HR 8.43 mls/hr IV .Q24H [facility] Rx#: [id number] Sodium Chloride 0.9% 1, 204 000 ml In Empty Bag 1 bag @ 1 ML/KG/HR 72 mls/hr IV .[id number] ONE Rx#: [id number] Oral 240 Other: Voiding Method Toilet # Voids 1 1 - Exam General: non toxic, no distress, appears at stated age Derm: warm, dry Head: atraumatic, normocephalic, symmetric Eyes: EOMI, no lid lag, anicteric sclera Mouth: no lip lesion, mucus membranes moist Cardiovascular: S1S2 reg, no murmur, positive posterior tibial pulse bilateral, Lungs: CTA bilateral, no rhonchi, no rales , no accessory muscle use Abdominal: soft, nontender to palpation, no guarding, no appreciable organomegaly Ext: no gross muscle atrophy, no edema, no contractures Neuro: CN II-XI grossly intact, no focal neuro deficits Psych: Alert, oriented, appropriate affect - Labs CBC & Chem 7: 10/06/18 06:00 10/06/18 06:00 Labs: Abnormal Lab Results - Last 24 Hours (Table) 10/05/18 10/05/18 10/06/18 Range/Units 17:57 22:34 06:00 RBC (3.80-5.40) m/uL APTT 58.5 H (22.0-30.0) sec Chloride 112 H (98-107) mmol/L BUN 26 H (7-17) mg/dL Creatinine 1.40 H (0.52-1.04) mg/dL CK-MB (CK-2) 4.6 H (0.0-2.4) ng/mL Troponin I 0.595 H* (0.000-0.034) ng/mL Triglycerides 227 H (<150) mg/dL HDL Cholesterol 33 L (40-60) mg/dL 10/06/18 10/06/18 Range/Units 06:00 06:00 RBC 3.75 L (3.80-5.40) m/uL APTT 70.8 H (22.0-30.0) sec Chloride (98-107) mmol/L BUN (7-17) mg/dL Creatinine (0.52-1.04) mg/dL CK-MB (CK-2) (0.0-2.4) ng/mL Troponin I (0.000-0.034) ng/mL Triglycerides (<150) mg/dL HDL Cholesterol (40-60) mg/dL Assessment and Plan Assessment: Non-ST segment elevated myocardial infarction -Continue Imdur, lisinopril, Lopressor -Heparin drip -Serial troponins remained flat -Cardiology recs plan is for cath today, recommended pre and post cath IVF -Cholesterol profile was obtained 5 months ago and showed a total cholesterol 159, LDL 80, HDL 48 -Aspirin, nitro paste, Plavix, Lipitor Hypertensive emergency -Continue Imdur, lisinopril, Lopressor -Follow blood pressures Systolic cardiomyopathy with ejection fraction 45-50% -Continue with lisinopril, Lopressor, and Imdur -Monitor fluid status closely -Cardiology recommendations CKD III - recommned pre and post cath IVF - maintain lisinopril with Cr at baseline - follow Cr Dyslipidemia -Continue with Lipitor Arthritis -As needed Tylenol CODE STATUS:Full DVT prophylaxis: On heparin gtt 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
[2018-10-06] MEDS: SODIUM CHLORIDE 0.9% 1,000 ML IV SCH (18:40)
[2018-10-06] MEDS: MELATONIN 5 MG TABLET PO SCH (20:52)
[2018-10-06] MEDS: ATORVASTATIN 80 MG TAB PO SCH (20:52)
--- NOTE | 2018-10-06 23:29 | CC ---
CARDIAC CATHETERIZATION REPORT DATE OF SERVICE: 10/06/2018. PROCEDURE: 1. Left heart catheterization and coronary angiography. 2. PTCA and stenting of ostial lesion of the very dominant RCA with a drug-eluting stents. A technically difficult procedure. PERFORMED BY: Dr. Stefano Jane. SEDATION: Moderate conscious sedation time was 110 minutes. CLINICAL INFORMATION: Mrs. Lulu Roman is an 87-year-old lady with a known history of CAD with multivessel stenting. The last stenting that was performed was of an obtuse marginal branch that was totally occluded on April 18, [address] Singleton during my absence. This lady had ostial RCA was advised to have a repeat procedure but wished medical therapy did well but comes in now with symptoms suggestive of angina with abnormal troponin. She was advised coronary angiography. She came in with a non-ST elevation type picture, but she was pain free. PROCEDURE NOTE: Under local anesthesia and strict aseptic precautions, a 6-Slovak introducer was placed in the right femoral artery. Using standard Eusebio catheters, I performed coronary angiography and a pigtail catheter was used to check LV pressures. The previously stented LAD was widely patent. The recently stented circumflex marginal in March of 2018 was also widely patent. RCA had a ostial lesion of 99% with heavy calcification. The RCA stents were patent and distally bifurcated into PDA and PLV, both of which were free of significant disease other than minor irregularities but ostial RCA was the culprit lesion. I advised PCI of this vessel, which was a technically difficult procedure and was performed in the same setting. CARDIAC CATHETERIZATION FINDINGS: The left ventricle end-diastolic pressure was about 16 mmHg without any gradient across aortic valve. CORONARY ANGIOGRAPHY FINDINGS: RIGHT CORONARY ARTERY: This is a very dominant vessel. Has an ostial lesion of 99% with heavy calcification. Then it gives off 2 acute marginal branches. Distally bifurcates into PDA and PLV and is a dominant vessel. Supplies a sizable amount of myocardium. LEFT MAIN CORONARY ARTERY: Short, patent vessel, free of significant disease that bifurcates into LAD and circumflex. There is moderate calcification. LEFT ANTERIOR DESCENDING CORONARY ARTERY: Good caliber vessel extends along the anterior wall, gives off septal and diagonal branches. The proximal LAD that was stented is widely patent with good flow. There is no other significant lesion other than minor irregularities. LEFT POSTERIOR CIRCUMFLEX CORONARY ARTERY: This vessel in the proximal portion is about a 45% narrowing, then it gives off an obtuse marginal which was stented recently. Proximal circumflex also has a stent which is patent. The obtuse marginal stent is widely patent with good flow. There is a small branch that comes off after the obtuse marginal which is diffuse diseased and is seen as a small string. Then the branch that runs in the AV groove, gives 2 other additional branches and has minor irregularities. No significant disease. Circumflex therefore is widely patent at the site of previous stenting in the proximal portion as well as the obtuse marginal, but there is a secondary obtuse marginal that seems to be subtotally occluded chronically seen as a string, unchanged from previous angiogram of April 18. CARDIAC CATH FINAL IMPRESSION: This patient has a right dominant system with ostial stenosis of a very calcified dominant RCA of 99%. The circumflex stent, LAD stent as well as proximal RCA stents are patent. Circumflex has a 45% proximal lesion and a second obtuse marginal that is subtotally occluded and seen as a string. Recently stented circumflex marginal is patent. Filling pressures are mildly elevated. There was no gradient across aortic valve. RECOMMENDATION: I recommended PCI of RCA and proceeded to perform this in the same setting. PCI DETAILS: Initially I tried a right Eusebio guide catheter without much success. Then used a Addie catheter. With this, I was able to cannulate the RCA. A run-through wire was advanced and positioned distally. Patient received 150 mg of Plavix and also Angiomax bolus and infusion was given. I used a 1.5 caliber 12 mm Trek balloon. With this, I dilated the ostium. Modest improvement was noted before the heavily calcified lesion. I tried to advance a 2.0 balloon and then the catheter came out and I could not recannulate easily. I attempted multiple catheters and eventually with a KRS catheter, I was able to cannulate the RCA and the same run-through wire was advanced. I used a 2.0 Trek balloon. With this, I was able to dilate the ostium. I then used a 2.25 NC Trek balloon. A 2.5 NC Trek balloon and then eventually a 3.25 NC Trek balloon of 12 mm length and dilated up to 16 atmospheres. I then lost the guide support again and I had to recannulate this vessel. I rewired the lesion and then tried to advance a 3.25 caliber Xience stent, but I could not advance the stent. I therefore switched over to an Rajeev 12 mm stent and I was able to deployed the stent at 16 atmospheres. I then post dilated this stent with a 3.25 caliber 12 mm NC Trek balloon up to 16 atmospheres. Patient did not have chest pain but had profound inferior ST elevation. Excellent angiographic result was achieved with good flow. The sheath was taken out and Angio- Seal device used to secure hemostasis and result. Results were discussed with the patient, her and daughter. She will be discharged tomorrow if she remains stable. She was sent to the room in a stable condition with excellent angiographic result. However, the restenosis is high and this was explained to the patient as well. MMODL / IJN: [id number] /
[2018-10-07] MEDS: SODIUM CHLORIDE 0.9% 1,000 ML IV SCH (05:46)
[2018-10-07 06:13] LABS: Basophils % (A) 1 %; Eosinophils # (A) 0.2 k/uL (0-0.7); Eosinophils % (A) 3 %; HCT 30.8 % (34.0-46.0); HGB 10.3 gm/dL (11.4-16.0); Lymphocytes # (A) 1.6 k/uL (1.0-4.8); Lymphocytes % (A) 28 %; MCH 31.8 pg (25.0-35.0); MCHC 33.6 g/dL (31.0-37.0); MCV 94.6 fL (80.0-100.0); Mean Platelet Volume 6.3; Monocytes # (A) 0.4 k/uL (0-1.0); Monocytes % (A) 7 %; Neutrophils # (A) 3.5 k/uL (1.3-7.7); Neutrophils % (A) 60 %; Platelet Count 148 k/uL (150-450); RBC 3.25 m/uL (3.80-5.40); RDW 15.1 % (11.5-15.5); WBC 5.8 k/uL (3.8-10.6)
[2018-10-07 06:21] LABS: Potassium 4.2 mmol/L (3.5-5.1)
[2018-10-07 06:22] LABS: Calcium 8.5 mg/dL (8.4-10.2)
[2018-10-07 07:42] VITALS: RESP 14
[2018-10-07] MEDS: ASPIRIN 81 MG PO SCH (08:10)
[2018-10-07] MEDS: LORATADINE 10 MG TAB PO SCH (08:11)
[2018-10-07] MEDS: LISINOPRIL 20 MG TAB PO SCH (08:11)
[2018-10-07] MEDS: CLOPIDOGREL 75 MG TAB PO SCH (08:11)
[2018-10-07] MEDS: ISOSORBIDE MONONITRATE ER 30 MG TAB.ER.24H PO SCH (08:11)
[2018-10-07] MEDS: METOPROLOL TARTRATE 25 MG TAB PO SCH (08:11)
[2018-10-07] MEDS: HEPARIN SOD,PORK IN 0.45% NACL 25,000 UNIT in 0.45% NACL 1 250ML.BAG IV SCH (10:36)
[2018-10-07 11:44] VITALS: BMI 28.8
[2018-10-07 11:51] VITALS: BP 144/70; PULSE 72; TEMP 98.2
--- NOTE | 2018-10-07 14:03 | P.PN ---
Subjective Progress Note Date: 10/07/18 This is a pleasant 87-year-old female who follows with Dr. MARI Jane in the office. She has a known history of coronary artery disease with prior PCI's performed in [place] and [place], most recently the patient was in the hospital in April of last year which time she underwent successful stenting of the first obtuse marginal branch by Dr. Singleton. She also has history of hypertension, hyperlipidemia. She presents to the hospital on this occasion with symptoms of chest pain located in the lower mid to right area of her chest , she states that it was persistent throughout the night, around 4 AM she decided to come to the emergency room for further evaluation and treatment. Her EKG on presentation here showed a normal sinus rhythm with ST-T wave changes noted in the lateral leads. Chest x-ray showed chronic changes. I pressure on arrival here 227/93 with a heart rate in the 90s, 96% on room air. Let pressure this morning 184/80 with a heart rate in the 60s, 96% on 2 L of oxygen. White blood cell count 5.4, hemoglobin 11.7, platelet count 164. Sodium 142, potassium 4.4, BUN 26 and creatinine 1.4. Initial troponin on presentation here 0.057, subsequent troponins 0.55 and 0.59. At the time of my examination this morning she is currently chest pain-free, sitting up in her chair at bedside. 10/07/2018 Patient was taken to the cardiac catheterization lab yesterday where she underwent PTCA and stenting of an ostial lesion in the right coronary artery. She was seen and examined this morning, feels well, denies any chest pain or difficulty in breathing. An EKG was repeated this morning shows a normal sinus rhythm with no changes from post-PCI. Blood pressure 144/70 with a heart rate in the 70s, 96% on room air. White blood cell count 5.8, hemoglobin 10.3, platelet count 148. Sodium 141, potassium 4.2, BUN 29 and creatinine 1.3. Objective - Vital Signs Vital signs: Vital Signs Temp 98.2 F 10/07/18 11:50 Pulse 72 10/07/18 11:50 Resp 14 10/07/18 11:50 BP 144/70 10/07/18 11:50 Pulse Ox 96 10/07/18 11:50 Intake & Output 10/06/18 10/07/18 10/07/18 18:59 06:59 18:59 Intake Total 422.4 480 Output Total 700 200 Balance -277.6 -200 480 Weight 71.4 kg 71.4 kg Intake: IV 190.4 Intake, IV Titration 232 Amount Heparin Sod,Pork in 0.45% 28 NaCl 25,000 unit In 0.45 % NaCl 1 250ml.bag @ 12 UNITS/KG/HR 8.43 mls/hr IV .Q24H [facility] Rx#: [id number] Sodium Chloride 0.9% 1, 204 000 ml In Empty Bag 1 bag @ 1 ML/KG/HR 72 mls/hr IV .[id number] ONE Rx#: [id number] Oral 480 Output: Urine 700 200 Other: Voiding Method Toilet # Voids 1 2 # Bowel Movements 1 - Exam PHYSICAL EXAMINATION: GENERAL: 87-year-old female in no acute distress at the time of my examination HEENT: Head is atraumatic, normocephalic. Pupils equal, round. Sclera anicteric. Conjunctiva are clear. Mucous membranes of the mouth are moist. Neck is supple. There is no elevated jugular venous pressure. No carotid bruit is heard. HEART EXAMINATION: Heart S1, S2 systolic murmur heard . CHEST EXAMINATION: Lungs are clear to auscultation and precussion. No chest wall tenderness is noted on palpation or with deep breathing. ABDOMEN: Soft, nontender. Bowel sounds are heard. No organomegaly noted. EXTREMITIES: 2+ peripheral pulses with no evidence of peripheral edema and no calf tenderness noted. Right groin soft, no evidence of any hematoma. NEUROLOGIC patient is awake, alert and oriented 3 . . - Labs CBC & Chem 7: 10/07/18 05:22 10/07/18 05:22 Labs: Abnormal Lab Results - Last 24 Hours (Table) 10/07/18 10/07/18 Range/Units 05:22 05:22 RBC 3.25 L (3.80-5.40) m/uL Hgb 10.3 L (11.4-16.0) gm/dL Hct 30.8 L (34.0-46.0) % Plt Count 148 L (150-450) k/uL Chloride 113 H (98-107) mmol/L BUN 29 H (7-17) mg/dL Creatinine 1.37 H (0.52-1.04) mg/dL Assessment and Plan Plan: Assessment and plan #1 symptoms of chest discomfort with abnormality in troponin suggesting acute coronary syndrome. EKG shows normal sinus rhythm with nonspecific ST-T wave changes noted in the lateral leads. Status post angioplasty and stenting of the RCA #2 recent stenting of the first obtuse marginal and April 2018 prior to that patient has had multiple stent placements #3 hypertension, uncontrolled #4 hyperlipidemia Plan From cardiology's perspective, patient may be able to be discharged home today. We will make her a follow-up appointment to see Dr. MARI Jane in the office one week post discharge. Patient will be discharged home on aspirin 81 mg daily , Lipitor 80 mg daily, Plavix 75 mg daily, Imdur 30 mg daily, lisinopril 20 mg daily, metoprolol 25 mg one tablet by mouth twice a day, and sublingual nitroglycerin as needed for chest pain. DNP note has been reviewed, I agree with a documented findings and plan of care. Patient was seen and examined.
[2018-10-07] MEDS: MULTIVITAMINS, THERA 1 EACH TAB PO SCH (14:04)
--- NOTE | 2018-10-07 19:18 | P.DS ---
Providers Date of admission: 10/06/18 12:52 Expected date of discharge: 10/07/18 Attending physician: Liliana Aburto MD Consults: 10/05/18 06:50 Consult Physician Urgent Consulting Provider: Cardiology Lorie Consult Reason/Comments: chest pain, trop 0.05, CAD hx Do you want consulting provider notified?: Yes, Notify in am 10/06/18 14:34 Consult Physician Routine Consulting Provider: Cardiology Lorie Consult Reason/Comments: Post Interventional patient Do you want consulting provider notified?: Already Contacted Primary care physician: Reji Stoner Hospital Course: Discharge Diagnosis: NSTEMI s/p stent X 2 to the RCA HTN emergency 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 Patient arrived via EMS and had been found to have elevated blood pressure in Route with systolic blood pressure greater than 200. In the ER she underwent an extensive evaluation. Her initial vital signs her blood pressure was 227/93. Initial troponin was positive at 0.057. She has chronic renal disease and her creatinine was at her baseline of 1.43. Initial EKG is reviewed by myself revealed normal sinus rhythm at a rate of 94, normal access, UT 176, QT 462, QRS 94. There is T-wave inversion in aVL. She was given a dose of aspirin and risk the hospital. She had Nitropaste placed. She was subsequently admitted to the cardiac floor. Her troponins remained at 0.5. Her chest pain resolved. Her blood pressure improved. Her troponin remained flat. She was taken for cardiac catheterization on 10/06 and underwent 2 stents to the RCA. Her blood pressure normalized. She was up and ambulating in the hallways and doing well. She was determined stable for discharge home. She will be maintained on aspirin, Plavix , lipitor, metoprolol, and lisinopril. She will follow with Dr. Jane in approximately one week Dr. Stoner on 10/10/18. Patient seen and examined at bedside. Chest pain resolved, and ambulating in the hallways, no nausea or vomiting. Feeling well and wanting to go home. Vital signs reviewed and stable. General: non toxic, no distress, appears at stated age Derm: warm, dry Head: atraumatic, normocephalic, symmetric Eyes: EOMI, no lid lag, anicteric sclera Mouth: no lip lesion, mucus membranes moist Cardiovascular: S1S2 reg, no murmur, positive posterior tibial pulse bilateral, Lungs: CTA bilateral, no rhonchi, no rales , no accessory muscle use Abdominal: soft, nontender to palpation, no guarding, no appreciable organomegaly Ext: no gross muscle atrophy, no edema, no contractures, left groin pain without significant hematoma or ecchymoses Neuro: CN II-XI grossly intact, no focal neuro deficits Psych: Alert, oriented, appropriate affect A total of 37 minutes of time were spent preparing this complex discharge summary . Pertinent Studies: Chest x-ray-no acute process Echocardiogram-ejection fraction 45-50% Procedures: Cardiac catheterization-PTCA and stenting of an ostial lesion in the dominant RCA with 2 drug-eluting stents Patient Condition at Discharge: Stable Plan - Discharge Summary Discharge Rx Participant: No New Discharge Prescriptions: New Loratadine [Claritin] 10 mg PO DAILY tab Metoprolol Tartrate [Lopressor] 25 mg PO BID #60 tab Nitroglycerin Sl Tabs [Nitrostat] 0.4 mg SUBLINGUAL Q5M PRN #7 tab PRN Reason: Chest Pain Continue Ascorbic Acid [Vitamin C] 1,000 mg PO DAILY Lisinopril [Prinivil] 20 mg PO DAILY Multivitamins, Thera [Multivitamin (formulary)] 1 tab PO DAILY Atorvastatin [Lipitor] 80 mg PO DAILY 30 Days #30 tab Aspirin 81 mg PO DAILY 30 Days #30 chewable Isosorbide Mononitrate ER [Imdur] 30 mg PO DAILY 30 Days #30 tab Clopidogrel [Plavix] 75 mg PO DAILY Cholecalciferol [Vitamin D3] 5,000 unit PO DAILY Discontinued Metoprolol Tartrate [Lopressor] 25 mg PO DAILY Discharge Medication List Ascorbic Acid [Vitamin C] 1,000 mg PO DAILY 03/27/17 [History] Lisinopril [Prinivil] 20 mg PO DAILY 03/27/17 [History] Multivitamins, Thera [Multivitamin (formulary)] 1 tab PO DAILY 04/19/18 [History ] Aspirin 81 mg PO DAILY 30 Days #30 chewable 04/21/18 [Rx] Atorvastatin [Lipitor] 80 mg PO DAILY 30 Days #30 tab 04/21/18 [Rx] Isosorbide Mononitrate ER [Imdur] 30 mg PO DAILY 30 Days #30 tab 04/21/18 [Rx] Cholecalciferol [Vitamin D3] 5,000 unit PO DAILY 10/05/18 [History] Clopidogrel [Plavix] 75 mg PO DAILY 10/05/18 [History] Loratadine [Claritin] 10 mg PO DAILY tab 10/07/18 [Rx] Metoprolol Tartrate [Lopressor] 25 mg PO BID #60 tab 10/07/18 [Rx] Nitroglycerin Sl Tabs [Nitrostat] 0.4 mg SUBLINGUAL Q5M PRN #7 tab 10/07/18 [Rx] Follow up Appointment(s)/Referral(s): Joan Jane MD [STAFF PHYSICIAN] - 1 Week (spoke to broadcast operations engineer office will call with appointment) Reji Stoner MD [Primary Care Provider] - 10/10/18 3:00 pm (Saturday) [facility], [NON-STAFF] - Patient Instructions/Handouts: *Surgery [facility] - After Heart Catheterization - Talent Management Manager Instructions, Left Heart Catheterization (DC) Activity/Diet/Wound Care/Special Instructions: Heart healthy diet Activity as tolerated Discharge Disposition: HOME SELF-CARE
== END 2018-10-07 14:29 | disposition home health service (06) | DRG 247 ==
LOC: EC 05:33 → 3SCARD 06:52 → OBSVTOIN 10-06 12:52
PROVIDERS: ADMIT Internal Medicine; ATTEND Internal Medicine
PROC: B2111ZZ Fluoroscopy of Multiple Coronary Arteries using Low Osmolar Contrast (ICD-10-PCS; 2018-10-06)
PROC: 027034Z Dilation of Coronary Artery, One Artery with Drug-eluting Intraluminal Device, Percutaneous Approach (ICD-10-PCS; principal; 2018-10-06 12:27)
PROC: 4A023N7 Measurement of Cardiac Sampling and Pressure, Left Heart, Percutaneous Approach (ICD-10-PCS; 2018-10-06 12:27)
DX: I21.4 Non-ST elevation (NSTEMI) myocardial infarction (principal); I16.1 Hypertensive emergency; I42.9 Cardiomyopathy, unspecified; N18.3 Chronic kidney disease, stage 3 (moderate); E78.5 Hyperlipidemia, unspecified; I12.9 Hypertensive chronic kidney disease with stage 1 through stage 4 chronic kidney disease, or unspecified chronic kidney disease; I25.10 Atherosclerotic heart disease of native coronary artery without angina pectoris; I25.2 Old myocardial infarction; M19.90 Unspecified osteoarthritis, unspecified site; Z79.02 Long term (current) use of antithrombotics/antiplatelets; Z79.82 Long term (current) use of aspirin; Z79.899 Other long term (current) drug therapy; Z87.01 Personal history of pneumonia (recurrent); Z95.5 Presence of coronary angioplasty implant and graft; Z82.49 Family history of ischemic heart disease and other diseases of the circulatory system
CPT/HCPCS: 36415; 71046; 80048; 80053; 80061; 82550; 82553; 83735; 83880; 84484; 85025; 85610; 85730; 93005; 93306; 93458; 96365; 96366; 99285; C1874

== ENCOUNTER → 2018-11-07 | Outpatient (CLI) | payer MEDICARE ==
[2018-11-07 14:45] LABS: HCT 36.3 % (34.0-46.0); HGB 11.6 gm/dL (11.4-16.0); Hypochromasia Slight; MCH 30.6 pg (25.0-35.0); MCV 95.6 fL (80.0-100.0); Mean Platelet Volume 7.6; Platelet Count 163 k/uL (150-450); RDW 15.1 % (11.5-15.5); WBC 5.7 k/uL (3.8-10.6)
[2018-11-07 14:54] LABS: Magnesium 2.1 mg/dL (1.6-2.3); Potassium 4.7 mmol/L (3.5-5.1)
== END | disposition home or self-care (01) ==
LOC: LABPAT 13:55
PROVIDERS: ATTEND Internal Medicine Interventional Cardiology
DX: Z01.812 Encounter for preprocedural laboratory examination (principal); I25.10 Atherosclerotic heart disease of native coronary artery without angina pectoris; I73.9 Peripheral vascular disease, unspecified
CPT/HCPCS: 80051; 82565; 82947; 83735; 84520; 85027

== ENCOUNTER 2018-11-10 09:51 | Inpatient (IN) | payer MEDICARE ==
[~2018-11-10 09:51] MED LIST changes: -ALBUTEROL NEB (CONC) 2.5 MG/0.5 ML INHALATION ONE; -LACTATED RINGERS 1,000 ML IV ONE; -LIDOCAINE 2% (PF) 20 MG/ML 10ML INHALATION ONE; -Pre Op ABX Message 1 EACH MISC MISCELLANE ONE; +SODIUM CHLORIDE 0.9% 1,000 ML in EMPTY BAG 1 BAG IV ONE
[2018-11-10] MEDS ORDERED: ASPIRIN 325 MG TAB ONE (10:13)
[2018-11-10 10:52] LABS: Basophils # (A) 0.1 k/uL (0-0.2); Basophils % (A) 1 %; Eosinophils # (A) 0.3 k/uL (0-0.7); Eosinophils % (A) 5 %; HCT 38.2 % (34.0-46.0); HGB 12.3 gm/dL (11.4-16.0); Lymphocytes # (A) 1.8 k/uL (1.0-4.8); Lymphocytes % (A) 29 %; MCH 30.1 pg (25.0-35.0); MCHC 32.1 g/dL (31.0-37.0); MCV 93.7 fL (80.0-100.0); Mean Platelet Volume 7.1; Monocytes # (A) 0.4 k/uL (0-1.0); Monocytes % (A) 6 %; Neutrophils # (A) 3.6 k/uL (1.3-7.7); Neutrophils % (A) 57 %; Platelet Count 191 k/uL (150-450); RBC 4.08 m/uL (3.80-5.40); RDW 15.4 % (11.5-15.5); WBC 6.3 k/uL (3.8-10.6)
[2018-11-10 11:06] LABS: Calcium 9.8 mg/dL (8.4-10.2); Potassium 4.3 mmol/L (3.5-5.1)
[2018-11-10] MEDS ORDERED: MIDAZOLAM 2 MG/2 ML VIAL IVP ONE ×2 (11:52→12:00)
[2018-11-10] MEDS ORDERED: LIDOCAINE 1% INJ 10MG/ML (10 ML MDV) SQ ONE (11:55)
[2018-11-10] MEDS ORDERED: IOPAMIDOL-250 100ML BTL INTRAARTER ONE (12:12)
[2018-11-10] MEDS ORDERED: hydrALAZINE HCL 20 MG/ML 1 ML VIAL IVP ONE (12:25)
[2018-11-10] MEDS ORDERED: SODIUM CHLORIDE 0.9% 1,000 ML IV SCH (12:45)
--- NOTE | 2018-11-10 13:05 | LTR ---
November 10, 2018 Re: Lulu Abel Dear Dr. Stoner: Ms. Lulu Roman underwent today a peripheral angiogram and that showed critical disease involving the right popliteal. She will be scheduled to undergo balloon angioplasty. I want to thank you for allowing me to participate in her care and please do not hesitate to call if you have any question or concern. Sincerely, Telly Becker MD MMJENNIFER / BECKIEN: [id number] /
--- NOTE | 2018-11-10 13:11 | AN ---
ANGIOGRAPHY REPORT DATE OF SERVICE: November 10, 2018. PERFORMING PHYSICIAN: Telly Becker MD, hot metal mixer operator helper. PROCEDURE PERFORMED: 1. An abdominal aortogram. 2. Bilateral lower extremities runoff. INDICATION: This is an 88-year-old female patient who sees Dr. Jane in the office as an outpatient with known history of coronary artery disease and prior coronary artery revascularization, who was seen by Dr. Jane in the office last week complaining of resting pain in the right leg. She did not have any pedal pulses in the right foot. There was no popliteal pulse as well. Her right femoral pulse was good. Because of the evidence of critical limb ischemia, an abdominal aortogram and bilateral lower extremities was advised to be done as soon as possible. APPROACH: Right common femoral artery. COMPLICATION: None. LEVEL OF SEDATION: Moderate with sedation length of 15 minutes. PROCEDURE DESCRIPTION: After obtaining an informed consent, the patient was brought to the cardiac laboratory miller. The right common femoral artery was cannulated using micropuncture technique, the micropuncture wire passed easily then I placed a 4-Occitan sheath in the right common femoral artery. After that I did an abdominal aortogram and bilateral lower extremities runoff using 4- Occitan Omni Flush catheter which was placed initially at the level of the renal arteries and it was pulled into above the bifurcation of the aorta to right and left common iliac arteries. The procedure was completed without any complication. SELECTIVE PERIPHERAL ANGIOGRAM: 1. The abdominal aorta is calcified with mild disease only. 2. Common iliac arteries: The right common iliac artery appeared to have a lesion in the range of 50%. The left common iliac artery appeared to have a lesion in the range of 90%. 3. Internal iliac arteries: Right and left internal are patent. 4. External iliac arteries: The right and left external iliac arteries are patent. 5. Common femoral arteries: The right and left common femoral arteries are patent. 6. Profunda: Both profunda are patent. 7. SFA: The right SFA appeared to be normal and the left SFA has a lesion appeared to be in the range of 90%. 8. Popliteal: The right popliteal appeared to be subtotally occluded with possible thrombus present and left popliteal appeared to have mild to moderate diffuse disease. 9. Below the knee: The arteries below the knee were not well opacified. CONCLUSION: 1. Severe aortoiliac disease with intermediate disease involving the right common iliac artery and critical disease involving the left common iliac artery. 2. Severe femoral-popliteal disease with critical right popliteal and severe left SFA. POSTPROCEDURE MANAGEMENT: 1. Start the patient on IV heparin once we achieve hemostasis in the right groin. 2. Planning to pursue with angioplasty of the right popliteal and left iliac artery. MMJENNIFER / IJN: [id number] /
[2018-11-10] MEDS ORDERED: NITROGLYCERIN SL TABS 0.4 MG TAB SUBLINGUAL PRN (15:35)
[2018-11-10] MEDS ORDERED: HEPARIN SODIUM,PORCINE 5,000 UNIT/ML 1 ML VIAL IV PRN (15:36)
[2018-11-10] MEDS ORDERED: hydrALAZINE HCL 20 MG/ML 1 ML VIAL IVP PRN (15:37)
[2018-11-10] MEDS: HEPARIN SOD,PORK IN 0.45% NACL 25,000 UNIT in 0.45% NACL 1 250ML.BAG IV SCH (17:54)
[2018-11-10 18:15] VITALS: BMI 28.5
[2018-11-11 06:46] LABS: Basophils % (A) 1 %; Eosinophils # (A) 0.2 k/uL (0-0.7); Eosinophils % (A) 4 %; HCT 33.4 % (34.0-46.0); HGB 11.1 gm/dL (11.4-16.0); Lymphocytes # (A) 2.1 k/uL (1.0-4.8); Lymphocytes % (A) 32 %; MCV 93.7 fL (80.0-100.0); Mean Platelet Volume 7.2; Monocytes # (A) 0.5 k/uL (0-1.0); Monocytes % (A) 7 %; Neutrophils # (A) 3.6 k/uL (1.3-7.7); Neutrophils % (A) 55 %; Platelet Count 165 k/uL (150-450); RBC 3.57 m/uL (3.80-5.40); RDW 15.4 % (11.5-15.5); WBC 6.5 k/uL (3.8-10.6)
[2018-11-11 07:56] LABS: Calcium 8.7 mg/dL (8.4-10.2); Potassium 3.9 mmol/L (3.5-5.1)
[2018-11-11] MEDS: ISOSORBIDE MONONITRATE ER 30 MG TAB.ER.24H PO SCH (08:56)
[2018-11-11] MEDS: MULTIVITAMINS, THERA 1 EACH TAB PO SCH (08:56)
[2018-11-11] MEDS: ASPIRIN 81 MG PO SCH (08:56)
[2018-11-11] MEDS: LISINOPRIL 20 MG TAB PO SCH (08:56)
[2018-11-11] MEDS: CLOPIDOGREL 75 MG TAB PO SCH (08:57)
[2018-11-11] MEDS: ASCORBIC ACID 500 MG TAB PO SCH (08:57)
[2018-11-11] MEDS: CHOLECALCIFEROL 1,000 UNIT TAB PO SCH (08:57)
[2018-11-11] MEDS: HEPARIN SOD,PORK IN 0.45% NACL 25,000 UNIT in 0.45% NACL 1 250ML.BAG IV SCH (11:11)
[2018-11-11] MEDS: METOPROLOL TARTRATE 25 MG TAB PO SCH (11:12)
[2018-11-11] MEDS: ATORVASTATIN 80 MG TAB PO SCH (11:12)
[2018-11-11] MEDS: SODIUM CHLORIDE 0.9% 1,000 ML IV SCH (11:13)
--- NOTE | 2018-11-11 16:47 | PN ---
PROGRESS NOTE Mrs. Roman is in sinus rhythm, comfortable resting. This lady came in with acute ischemia of right lower extremity with a severe popliteal stenosis. She is on IV heparin and will have intervention tomorrow by Dr. Becker. She also has CAD with multivessel PCI. She is doing well. No angina. Vitals are stable. S1, S2 heard normally. Short systolic murmur noted. Lungs reveal decent air entry. Abdomen is soft. Lower extremities reveal diminished pulses. Plan is to continue IV heparin. Dr. Becker will perform intervention of the right popliteal tomorrow and also probably of the left iliac. MMODL / IJN: [id number] /
[2018-11-12] MEDS ORDERED: HYDROmorphone 0.5 MG/0.5 ML SYRINGE IVP STA (07:53)
[2018-11-12] MEDS: SODIUM CHLORIDE 0.9% 1,000 ML IV SCH ×3 (08:22→21:50)
[2018-11-12] MEDS: ASPIRIN 81 MG PO SCH (08:22)
[2018-11-12] MEDS: LISINOPRIL 20 MG TAB PO SCH (08:22)
[2018-11-12] MEDS: ISOSORBIDE MONONITRATE ER 30 MG TAB.ER.24H PO SCH (08:22)
[2018-11-12] MEDS: METOPROLOL TARTRATE 25 MG TAB PO SCH (08:22)
[2018-11-12] MEDS: ATORVASTATIN 80 MG TAB PO SCH (08:22)
[2018-11-12] MEDS: CLOPIDOGREL 75 MG TAB PO SCH (08:22)
[2018-11-12] MEDS ORDERED: ONDANSETRON 4 MG/2 ML VIAL IVP STA (09:17)
[2018-11-12] MEDS ORDERED: ONDANSETRON 4 MG/2 ML VIAL ONE (09:18)
--- NOTE | 2018-11-12 12:16 | P.PN ---
Subjective Progress Note Date: 11/12/18 This is a pleasant 88-year-old female who was brought to the hospital by Dr. Oropeza, underwent an abdominal aortogram with bilateral lower extremities runoff, she was found to have severe aortoiliac disease with intermediate disease involving the right common iliac artery and critical disease in the left common iliac artery. Severe femoral popliteal disease with critical right popliteal and severe left SFA.the plan is to proceed with angioplasty of the right popliteal and left iliac artery today. This morning early, the patient developed a hematoma in the right groin, pressure was held for about 15 minutes, and a FemoStop was applied. On reevaluation later on, groin continued to be soft, patient overall doing well. Scheduled to undergo procedure later this morning. Objective - Vital Signs Vital signs: Vital Signs Temp 98.8 F 11/12/18 11:15 Pulse 85 11/12/18 11:15 Resp 18 11/12/18 11:15 BP 156/70 11/12/18 11:15 Pulse Ox 95 11/12/18 11:15 Intake & Output 11/11/18 11/12/18 11/12/18 18:59 06:59 18:59 Intake Total 1450.335 Output Total 900 600 Balance 550.335 -600 Weight 72.1 kg Intake: IV 850 Invasive Line 3 50 Sodium Chloride 0.9% 1, 800 000 ml @ 100 mls/hr IV . Q10H [facility] Rx#:[id number] Intake, IV Titration 100.335 Amount Heparin Sod,Pork in 0.45% 100.335 NaCl 25,000 unit In 0.45 % NaCl 1 250ml.bag @ 12 UNITS/KG/HR 8.508 mls/hr IV .Q24H [facility] Rx#: [id number] Oral 500 Output: Urine 900 600 Other: # Voids 1 3 - Exam PHYSICAL EXAMINATION: GENERAL:88-year-old female in no acute distress at the time of my examination HEENT: Head is atraumatic, normocephalic. Pupils equal, round. Sclera anicteric. Conjunctiva are clear. Mucous membranes of the mouth are moist. Neck is supple. There is no elevated jugular venous pressure.no carotid bruit is heard. HEART EXAMINATION: [Heart S1, S2 normal. No murmur or gallop heard.] CHEST EXAMINATION:[ Lungs are clear to auscultation and precussion. No chest wall tenderness is noted on palpation or with deep breathing.] ABDOMEN: [ Soft, nontender. Bowel sounds are heard. No organomegaly noted]. EXTREMITIES:[ doppler to 1+ peripheral pulses with no evidence of peripheral edema and no calf tenderness noted].right groin, evidence of hematoma, pressure held, site is now soft, mild ecchymosis, no bruit NEUROLOGIC [patient is awake, alert and oriented X3.] . - Labs CBC & Chem 7: 11/11/18 06:01 11/11/18 06:01 Labs: Abnormal Lab Results - Last 24 Hours (Table) 11/12/18 Range/Units 06:17 APTT 113.6 H* (22.0-30.0) sec Assessment and Plan Plan: assessment and plan #1 status post abdominal aortogram and bilateral lower extremities runoff severe aorta iliac disease with intermediate disease involving the right common iliac artery and critical disease in the left common iliac artery. Severe from oral popliteal disease with critical right popliteal and severe left SFA #2 coronary artery disease #3 hypertension #4 hyperlipidemia Plan Patient will proceed with angioplasty of the right popliteal and left iliac a rtery today by Dr. Oropeza. DNP note has been reviewed, I agree with a documented findings and plan of care. Patient was seen and examined.
[2018-11-12] MEDS ORDERED: IV FLUID CONTINUATION 1,000 ML IV ONE (12:30)
[2018-11-12] MEDS ORDERED: MIDAZOLAM 2 MG/2 ML VIAL IV ONE (12:39)
[2018-11-12] MEDS ORDERED: LIDOCAINE 1% INJ 10MG/ML (20 ML MDV) SQ ONE (12:41)
[2018-11-12] MEDS ORDERED: IOPAMIDOL-250 100ML BTL INTRAARTER ONE (14:01)
[2018-11-12] MEDS ORDERED: CLOPIDOGREL 75 MG TAB PO ONE (14:09)
[2018-11-12] MEDS ORDERED: SODIUM CHLORIDE 0.9% 1,000 ML IV SCH (14:30)
[2018-11-12] MEDS: ASCORBIC ACID 500 MG TAB PO SCH (15:03)
[2018-11-12] MEDS: CHOLECALCIFEROL 1,000 UNIT TAB PO SCH (15:03)
[2018-11-12] MEDS: MULTIVITAMINS, THERA 1 EACH TAB PO SCH (15:03)
--- NOTE | 2018-11-12 16:06 | LTR ---
DATE OF SERVICE: November 12, 2018. Dear Dr. Stoner: Ms. Lulu Roman underwent today successful balloon angioplasty of the right popliteal artery and successful stenting of the left iliac arteries. The procedure was completed without any complication and with good angiographic results by the end. Thank you for allowing us to participate in her care and please do not hesitate to call if you have any question or concerns. MMODL / IJN: [id number] /
--- NOTE | 2018-11-12 16:21 | AN ---
ANGIOGRAPHY REPORT DATE OF SERVICE: November 12, 2018 PERFORMING PHYSICIAN: Telly Becker MD, [id number] [id number] armor crewman. PROCEDURE PERFORMED: 1. Selective right aziep-ntk-npxb angiogram. 2. Selective right popliteal/SFA angiogram. 3. Selective left common iliac artery angiogram. 4. Selective left common femoral artery angiogram. 5. Atherectomy of the right popliteal artery using the TurboHawk device with extraction of plaque. 6. Successful balloon angioplasty of the right popliteal using 5 x 60 mm Impact drug coated balloon with an excellent angiographic results and reduction of stenosis from 100% to 0%. 7. Successful stenting of the left common iliac artery using 8 x 29 mm Omnilink balloon expandable stent with an excellent angiographic results and reduction of stenosis from 90% to 0%. INDICATION: This is an 88-year-old female patient who sees Dr. Jane in the office as an outpatient who was admitted to the hospital a few days ago with evidence of critical limb ischemia of the right foot. She underwent a peripheral angiogram and that revealed occluded right popliteal with possible thrombus. Because of that, she was brought today to undergo a INSTALLATION SPECIALIST of the right popliteal. She was also found to have critical disease involving the left common iliac artery. APPROACH: Left common femoral artery. COMPLICATION: None. LEVEL OF SEDATION: Moderate with sedation length of 8 minutes. PROCEDURE DESCRIPTION: After obtaining an informed consent, the patient was brought to the cardiac laundry laborer. The left common femoral artery was cannulated using micropuncture technique, the micropuncture wire passed easily, then I placed a 6-Filipino sheath 11 cm in the left common femoral artery. I did start after that anticoagulation with heparin and the patient was given a weight based heparin with continuous ACT monitoring throughout the procedure. Subsequently, I did select the right SFA using a 5-Filipino Rim catheter with 0.035 [place] Advantage wire. I did have hard time exchanging my 11 cm 6-Filipino sheath into 70 cm 6- Filipino Raabe sheath and I used a 6-Filipino Vincenzo sheath. I did position the tip of the Vincenzo sheath at the ostial artery at the right common femoral artery. After that I did selective selective right aatic-hvt-ashc angiogram, selective right popliteal and SFA angiogram which identified the occluded right popliteal. At that point, I did cross the chronic total occlusion of the right popliteal using [address] wire. Subsequently I did advanced 014 CXI catheter to the right tibioperoneal trunk to inject contrast to prove that I was in the true lumen. After that, I did reposition the [address] wire[address] I did atherectomy at that point using the TurboHawk device with extraction of significant amount of plaque. I had a hard time advancing the atherectomy device in the beginning, so I had to balloon that lesion using 4 mm balloon. After that, I did atherectomize the right popliteal using the TurboHawk device. At that point, I did balloon angioplasty of the right popliteal using 5.0 by 60 mm impact drug coated balloon where the balloon was positioned under fluoroscopy guidance and inflated under fluoroscopy guidance as well under 8 atmospheres for 3 minutes. The following angiogram showed excellent angiographic results and the procedure at that point for the popliteal was completed. After that, I did pull the sheath all the way to the left external iliac artery. After that, I did selective left common iliac artery angiogram and I did balloon angioplasty initially using 6 mm balloon before I deployed 8 x 29 mm Omnilink balloon expandable stent where the stent was positioned under fluoroscopy guidance and deployed under 12 atmospheres for 20 seconds. The following angiogram showed excellent angiographic results and the procedure at that point was completed without any complication. POSTPROCEDURE MANAGEMENT: 1. Dual anti-platelet therapy. 2. Risk factor modifications. 3. INSTALLATION SPECIALIST of the left SFA if the patient continues to have left leg intermittent claudication. JEAN / SALVATORE: [id number] /
[2018-11-12] MEDS: HEPARIN SOD,PORK IN 0.45% NACL 25,000 UNIT in 0.45% NACL 1 250ML.BAG IV SCH (21:54)
[2018-11-13] MEDS: SODIUM CHLORIDE 0.9% 1,000 ML IV SCH ×2 (04:55→13:18)
[2018-11-13 08:10] LABS: Basophils % (A) 0 %; Eosinophils # (A) 0.2 k/uL (0-0.7); Eosinophils % (A) 2 %; HCT 27.2 % (34.0-46.0); Hypochromasia Slight; Lymphocytes # (A) 1.7 k/uL (1.0-4.8); Lymphocytes % (A) 27 %; MCH 31.2 pg (25.0-35.0); MCHC 32.5 g/dL (31.0-37.0); MCV 96.1 fL (80.0-100.0); Mean Platelet Volume 7.3; Monocytes # (A) 0.5 k/uL (0-1.0); Monocytes % (A) 8 %; Neutrophils # (A) 3.7 k/uL (1.3-7.7); Neutrophils % (A) 60 %; Platelet Count 122 k/uL (150-450); RBC 2.83 m/uL (3.80-5.40); RDW 15.5 % (11.5-15.5); WBC 6.2 k/uL (3.8-10.6)
[2018-11-13 08:22] LABS: HGB 8.8 gm/dL (11.4-16.0)
[2018-11-13 08:23] LABS: Calcium 8.3 mg/dL (8.4-10.2)
[2018-11-13] MEDS: METOPROLOL TARTRATE 25 MG TAB PO SCH (09:02)
[2018-11-13] MEDS: ASPIRIN 81 MG PO SCH (09:02)
[2018-11-13] MEDS: ISOSORBIDE MONONITRATE ER 30 MG TAB.ER.24H PO SCH (09:02)
[2018-11-13] MEDS: LISINOPRIL 20 MG TAB PO SCH (09:02)
[2018-11-13] MEDS: CLOPIDOGREL 75 MG TAB PO SCH (09:02)
[2018-11-13] MEDS: ATORVASTATIN 80 MG TAB PO SCH (09:02)
--- NOTE | 2018-11-13 10:14 | IR ---
EXAMINATION TYPE: IR angio abdominal w runoff DATE OF EXAM: 11/10/2018 COMPARISON: NONE HISTORY: Fluoroscopy time. Fluoroscopy was provided to the referring clinician.
[2018-11-13] MEDS: CHOLECALCIFEROL 1,000 UNIT TAB PO SCH (12:22)
[2018-11-13] MEDS: ASCORBIC ACID 500 MG TAB PO SCH (12:23)
[2018-11-13] MEDS: MULTIVITAMINS, THERA 1 EACH TAB PO SCH (12:23)
--- NOTE | 2018-11-13 14:07 | DS ---
DISCHARGE SUMMARY DATE OF ADMISSION: 11/10/2018 DATE OF DISCHARGE: 11/13/2018 PROCEDURES PERFORMED: PTCA and stenting of left common iliac artery and PTCA of right fem popliteal artery. Mrs Mckeon is a lady with a history of CAD, multivessel PCI. Also has peripheral artery disease, came in with significant ischemia of right lower extremity with a popliteal artery subtotal occlusion. She also had left iliac disease. Patient underwent PTB of the popliteal and left iliac was stented by Dr. Becker yesterday with an excellent result. She underwent a diagnostic angiography on Saturday and intervention was performed yesterday. She had a hematoma in between but this morning, both groins are bruised, but there is no significant hematoma or bruit. Her vital signs stable. She is feeling very well. Pain in her right foot has resolved completely. Her vital signs are stable, there is no JVD. S1-S2 heard normally. Short systolic murmur noted. Lungs are clear. Abdomen is soft. Both groins have ecchymosis, no bruit. Pulses are improved remarkably. Plan is to discharge her today and I will see her in the office in one week. She will be going home on the same medications which include aspirin, Plavix, beta kristine and correction is she will be going home on aspirin, Plavix, beta kristine and statin agents. I will see her in the office in one week. MMODL / IJN: [id number] /
[2018-11-13 14:43] LABS: HCT 25.5 % (34.0-46.0); HGB 8.1 gm/dL (11.4-16.0); Hypochromasia Slight; MCH 29.9 pg (25.0-35.0); MCHC 31.9 g/dL (31.0-37.0); MCV 93.8 fL (80.0-100.0); Mean Platelet Volume 6.9; Platelet Count 111 k/uL (150-450); RBC 2.72 m/uL (3.80-5.40); RDW 15.3 % (11.5-15.5); WBC 6.3 k/uL (3.8-10.6)
[2018-11-14] MEDS: SODIUM CHLORIDE 0.9% 1,000 ML IV SCH ×3 (04:35→20:59)
[2018-11-14 06:35] LABS: HCT 23.2 % (34.0-46.0); HGB 7.5 gm/dL (11.4-16.0); MCH 30.1 pg (25.0-35.0); MCHC 32.5 g/dL (31.0-37.0); MCV 92.6 fL (80.0-100.0); Mean Platelet Volume 7.1; Platelet Count 113 k/uL (150-450); RBC 2.51 m/uL (3.80-5.40); RDW 15.3 % (11.5-15.5); WBC 6.3 k/uL (3.8-10.6)
[2018-11-14] MEDS: ASCORBIC ACID 500 MG TAB PO SCH (08:09)
[2018-11-14] MEDS: ASPIRIN 81 MG PO SCH (08:09)
[2018-11-14] MEDS: ISOSORBIDE MONONITRATE ER 30 MG TAB.ER.24H PO SCH (08:09)
[2018-11-14] MEDS: ATORVASTATIN 80 MG TAB PO SCH (08:09)
[2018-11-14] MEDS: METOPROLOL TARTRATE 25 MG TAB PO SCH (08:09)
[2018-11-14] MEDS: LISINOPRIL 20 MG TAB PO SCH (08:09)
[2018-11-14] MEDS: CLOPIDOGREL 75 MG TAB PO SCH (08:09)
[2018-11-14] MEDS: MULTIVITAMINS, THERA 1 EACH TAB PO SCH (08:10)
[2018-11-14] MEDS: CHOLECALCIFEROL 1,000 UNIT TAB PO SCH (08:10)
--- NOTE | 2018-11-14 08:16 | IR ---
EXAMINATION TYPE: IR stent intravas non coronary DATE OF EXAM: 11/12/2018 COMPARISON: NONE HISTORY: Fluoroscopy time. Fluoroscopy was provided to the referring clinician.
--- NOTE | 2018-11-14 10:50 | P.PN ---
Subjective Progress Note Date: 11/14/18 This is a pleasant 88-year-old female who was brought to the hospital by Dr. Oropeza, underwent an abdominal aortogram with bilateral lower extremities runoff, she was found to have severe aortoiliac disease with intermediate disease involving the right common iliac artery and critical disease in the left common iliac artery. Severe femoral popliteal disease with critical right popliteal and severe left SFA.the plan is to proceed with angioplasty of the right popliteal and left iliac artery today. This morning early, the patient developed a hematoma in the right groin, pressure was held for about 15 minutes, and a FemoStop was applied. On reevaluation later on, groin continued to be soft, patient overall doing well. Scheduled to undergo procedure later this morning. 11/14/2018 Patient seen and examined this morning, hemoglobin today down to 7.5. Overall the patient feels well, denies any abdominal discomfort no lower back discomfort. Blood pressure 146/70 with a heart rate in the 90s, 96% on room air. Objective - Vital Signs Vital signs: Vital Signs Temp 97.5 F L 11/14/18 07:15 Pulse 91 11/14/18 07:15 Resp 18 11/14/18 08:00 BP 146/77 11/14/18 07:15 Pulse Ox 96 11/14/18 07:15 Intake & Output 11/13/18 11/14/18 11/14/18 18:59 06:59 18:59 Intake Total 520 240 Output Total 0 Balance 520 240 Weight 74 kg Intake: Oral 520 240 Output: Urine 0 Other: Voiding Method Toilet Toilet # Voids 1 1 - Exam PHYSICAL EXAMINATION: GENERAL:88-year-old female in no acute distress at the time of my examination HEENT: Head is atraumatic, normocephalic. Pupils equal, round. Sclera anicteric. Conjunctiva are clear. Mucous membranes of the mouth are moist. Neck is supple. There is no elevated jugular venous pressure.no carotid bruit is heard. HEART EXAMINATION: [Heart S1, S2 normal. No murmur or gallop heard.] CHEST EXAMINATION:[ Lungs are clear to auscultation and precussion. No chest wall tenderness is noted on palpation or with deep breathing.] ABDOMEN: [ Soft, nontender. Bowel sounds are heard. No organomegaly noted]. EXTREMITIES:[ doppler to 1+ peripheral pulses with no evidence of peripheral edema and no calf tenderness noted]. bilateral groin ecchymosis, no evidence of hematoma, no bruits heard. EUROLOGIC [patient is awake, alert and oriented X3.] . - Labs CBC & Chem 7: 11/14/18 05:56 11/13/18 06:59 Labs: Abnormal Lab Results - Last 24 Hours (Table) 11/13/18 11/14/18 Range/Units 14:25 05:56 RBC 2.72 L 2.51 L (3.80-5.40) m/uL Hgb 8.1 L 7.5 L (11.4-16.0) gm/dL Hct 25.5 L 23.2 L (34.0-46.0) % Plt Count 111 L 113 L (150-450) k/uL Assessment and Plan Plan: assessment and plan #1 status post abdominal aortogram and bilateral lower extremities runoff severe aorta iliac disease with intermediate disease involving the right common iliac artery and critical disease in the left common iliac artery. Severe femoral/ popliteal disease with critical right popliteal and severe left SFA. Status post angioplasty of the right popliteal with a left iliac artery stenting. #2 coronary artery disease #3 hypertension #4 hyperlipidemia Plan hemoglobin today is down to 7.5. We will obtain a bilateral groin ultrasound to assess for possible pseudoaneurysm, we want to rule out that there is no retroperitoneal bleed. If everything appears stable patient may be able to be discharged home today, further recommendations to follow. DNP note has been reviewed, I agree with a documented findings and plan of care. Patient was seen and examined.
--- NOTE | 2018-11-14 12:31 | US ---
EXAMINATION TYPE: US lower ext pseudo artery BI DATE OF EXAM: 11/14/2018 COMPARISON: NONE CLINICAL HISTORY: r/o pseudoaneurysm. Patient is post groin catheterization bilaterally; ecchymosis n oted bilateral groin and pelvis EXAM PERFORMED: Grayscale and color Doppler duplex imaging performed of the groin, post cardiac galo ter to assess for pseudoaneurysm. 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 Is there evidence of AV shunting: no Is there a fluid collection present: possible hypoechoic hematoma right groin superior to needle ins ert site = 3.3 x 2.7 x 1.0cm; hypoechoic area also noted superior and lateral to left groin cath. sit e = 1.9 x 3.6 x 1.0cm. Impression: Superior to right groin insertion there is isoechoic oval area could reflect small subcut aneous hematoma away from blood vessels. Tiny Pseudoaneurysm aneurysm left groin confirmed during real-time scanning towards the middle of tricia ges saved. Towards end of study technologist marked subcutaneous fluid collection presumed smaller he matoma not labeled right or left side but labeled above as left-sided.
[2018-11-14] MEDS ORDERED: MORPHINE SULFATE 2 MG/ML SYRINGE IVP STA (15:41)
[2018-11-14] MEDS ORDERED: ONDANSETRON 4 MG/2 ML VIAL IVP STA (15:45)
[2018-11-14 18:34] LABS: HGB 8.6 gm/dL (11.4-16.0); Hypochromasia Slight; MCH 31.6 pg (25.0-35.0); MCHC 33.2 g/dL (31.0-37.0); MCV 95.1 fL (80.0-100.0); Mean Platelet Volume 7.4; Platelet Count 129 k/uL (150-450); RBC 2.74 m/uL (3.80-5.40); RDW 15.3 % (11.5-15.5); WBC 7.3 k/uL (3.8-10.6)
[2018-11-15] MEDS: SODIUM CHLORIDE 0.9% 1,000 ML IV SCH (05:15)
[2018-11-15 06:43] LABS: HCT 24.3 % (34.0-46.0); HGB 8.1 gm/dL (11.4-16.0); Hypochromasia Slight; MCH 31.6 pg (25.0-35.0); MCHC 33.6 g/dL (31.0-37.0); Mean Platelet Volume 7.5; Platelet Count 127 k/uL (150-450); RBC 2.58 m/uL (3.80-5.40); RDW 15.8 % (11.5-15.5)
--- NOTE | 2018-11-15 08:56 | US ---
EXAMINATION TYPE: US lower ext pseudo artery LT DATE OF EXAM: 11/15/2018 COMPARISON: US 11/14/2018 CLINICAL HISTORY: follow up on tiny pseudoaneurysm. Very difficult and limited exam due to swelling a t left groin and patient unable to tolerate pressure from ultrasound probe when pushing down. EXAM PERFORMED: Grayscale and color Doppler duplex imaging performed of the groin, post cardiac galo ter to assess for pseudoaneurysm. SIDE PERFORMED: Left Color and Waveform Doppler performed to assess for the presence of pseudoaneurysm; Is there ultrasound evidence of a pseudoaneurysm: Yes. Small Pseudo appears partially thrombosed co mpared to previous study from 11/15/2018. 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
[2018-11-15] MEDS: CLOPIDOGREL 75 MG TAB PO SCH (09:17)
[2018-11-15] MEDS: LISINOPRIL 20 MG TAB PO SCH (09:18)
[2018-11-15] MEDS: ISOSORBIDE MONONITRATE ER 30 MG TAB.ER.24H PO SCH (09:18)
[2018-11-15] MEDS: ASPIRIN 81 MG PO SCH (09:18)
[2018-11-15] MEDS: METOPROLOL TARTRATE 25 MG TAB PO SCH (09:18)
[2018-11-15] MEDS: ATORVASTATIN 80 MG TAB PO SCH (09:18)
[2018-11-15 09:37] VITALS: BP 117/71; PULSE 90; RESP 16; TEMP 97.6
--- NOTE | 2018-11-15 10:24 | P.PN ---
Subjective Progress Note Date: 11/15/18 This is a pleasant 88-year-old female who was brought to the hospital by Dr. Oropeza, underwent an abdominal aortogram with bilateral lower extremities runoff, she was found to have severe aortoiliac disease with intermediate disease involving the right common iliac artery and critical disease in the left common iliac artery. Severe femoral popliteal disease with critical right popliteal and severe left SFA.the plan is to proceed with angioplasty of the right popliteal and left iliac artery today. This morning early, the patient developed a hematoma in the right groin, pressure was held for about 15 minutes, and a FemoStop was applied. On reevaluation later on, groin continued to be soft, patient overall doing well. Scheduled to undergo procedure later this morning. 11/14/2018 Patient seen and examined this morning, hemoglobin today down to 7.5. Overall the patient feels well, denies any abdominal discomfort no lower back discomfort. Blood pressure 146/70 with a heart rate in the 90s, 96% on room air. 11/15/2018 Patient was seen and examined this morning, up ambulating in hallway without any difficulty. She did have a repeat ultrasound of the groin performed this morning which shows partially thrombosed tiny pseudoaneurysm. I did speak with the radiologist that this morning regarding this. Hemoglobin is remaining stable. From cardiology's perspective, patient may be able to be discharged home today. She has a follow-up appointment with Dr. Thao Jane in the office. We will obtain a CBC on Saturday. Blood pressure 120/70 with a heart rate in the 80s to 90s, 94% on room air. Hemoglobin 8.1 today. Objective - Vital Signs Vital signs: Vital Signs Temp 97.6 F 11/15/18 09:00 Pulse 90 11/15/18 09:00 Resp 16 11/15/18 09:00 BP 117/71 11/15/18 09:00 Pulse Ox 94 L 11/15/18 09:00 Intake & Output 11/14/18 11/15/18 11/15/18 18:59 06:59 18:59 Intake Total 240 400 Output Total 0 Balance 240 400 Weight 78.3 kg Intake: Oral 240 400 Output: Urine 0 Other: Voiding Method Toilet Toilet Toilet # Voids 1 2 - Labs CBC & Chem 7: 11/15/18 06:19 11/13/18 06:59 Labs: Abnormal Lab Results - Last 24 Hours (Table) 11/14/18 11/15/18 Range/Units 18:14 06:19 RBC 2.74 L 2.58 L (3.80-5.40) m/uL Hgb 8.6 L 8.1 L (11.4-16.0) gm/dL Hct 26.0 L 24.3 L (34.0-46.0) % RDW 15.8 H (11.5-15.5) % Plt Count 129 L 127 L (150-450) k/uL Assessment and Plan Plan: assessment and plan #1 status post abdominal aortogram and bilateral lower extremities runoff severe aorta iliac disease with intermediate disease involving the right common iliac artery and critical disease in the left common iliac artery. Severe femoral/ popliteal disease with critical right popliteal and severe left SFA. Status post angioplasty of the right popliteal with a left iliac artery stenting. #2 coronary artery disease #3 hypertension #4 hyperlipidemia Plan From cardiology standpoint, patient may be able to be discharged home today. We'll make her a follow-up appointment to see Dr. MARI Jane in the office [place]. The patient will be discharged home on aspirin 81 mg daily, Lipitor 80 mg daily, Plavix 75 mg daily, Imdur 30 mg daily, lisinopril 20 mg daily, metoprolol 25 mg daily and sublingual nitroglycerin as needed for chest pain. DNP note has been reviewed, I agree with a documented findings and plan of care. Patient was seen and examined.
== END 2018-11-15 11:39 | disposition home or self-care (01) | DRG 272 ==
LOC: CATHCVL 09:51 → 3SCARD 16:43 → CATHCVL 16:43 → UNDOADMIN 11-11 09:24 → 3SCARD 11-11 09:24 → CATHCVL 11-15 09:23 → 3SCARD 11-15 09:23 → CATHCVL 11-15 09:24 → 3SCARD 11-15 09:24 → CATHCVL 11-15 10:07 → 3SCARD 11-15 10:07 → CATHCVL 11-15 11:39
PROVIDERS: ADMIT Internal Medicine Interventional Cardiology; ATTEND Internal Medicine Interventional Cardiology
PROC: 047D3DZ Dilation of Left Common Iliac Artery with Intraluminal Device, Percutaneous Approach (ICD-10-PCS; 2018-11-12)
PROC: B4101ZZ Fluoroscopy of Abdominal Aorta using Low Osmolar Contrast (ICD-10-PCS; 2018-11-12)
PROC: B41G1ZZ Fluoroscopy of Left Lower Extremity Arteries using Low Osmolar Contrast (ICD-10-PCS; 2018-11-12)
PROC: B41F1ZZ Fluoroscopy of Right Lower Extremity Arteries using Low Osmolar Contrast (ICD-10-PCS; 2018-11-12)
PROC: 04CM3ZZ Extirpation of Matter from Right Popliteal Artery, Percutaneous Approach (ICD-10-PCS; principal; 2018-11-12 12:05)
PROC: 047M3Z1 Dilation of Right Popliteal Artery using Drug-Coated Balloon, Percutaneous Approach (ICD-10-PCS; 2018-11-12 12:05)
DX: I70.203 Unspecified atherosclerosis of native arteries of extremities, bilateral legs (principal); I72.8 Aneurysm of other specified arteries; N18.3 Chronic kidney disease, stage 3 (moderate); E78.5 Hyperlipidemia, unspecified; I25.10 Atherosclerotic heart disease of native coronary artery without angina pectoris; R01.1 Cardiac murmur, unspecified; Z95.5 Presence of coronary angioplasty implant and graft; I12.9 Hypertensive chronic kidney disease with stage 1 through stage 4 chronic kidney disease, or unspecified chronic kidney disease; E78.00 Pure hypercholesterolemia, unspecified; E66.3 Overweight; Z68.31 Body mass index [BMI] 31.0-31.9, adult; Z79.02 Long term (current) use of antithrombotics/antiplatelets; Z79.82 Long term (current) use of aspirin; Z79.899 Other long term (current) drug therapy
CPT/HCPCS: 36200; 75625; 75716; 80048; 85025; 85027; 85730; 93975

== ENCOUNTER → 2018-11-24 | Outpatient (CLI) | payer MEDICARE ==
[2018-11-24 14:10] LABS: Anisocytosis Slight; HCT 28.8 % (34.0-46.0); HGB 10.1 gm/dL (11.4-16.0); Hypochromasia Slight; MCH 32.5 pg (25.0-35.0); MCV 92.9 fL (80.0-100.0); Mean Platelet Volume 7.2; RDW 17.3 % (11.5-15.5); WBC 8.9 k/uL (3.8-10.6)
[2018-11-24 14:14] LABS: Platelet Count 292 k/uL (150-450)
[2018-11-24 21:12] LABS: Anion Gap 6.4 mmol/L (4.00-12.00); Carbon Dioxide 28.6 mmol/L (21.6-31.8); Potassium 4.8 mmol/L (3.5-5.5)
== END ==
LOC: LABWHC1 11:24
PROVIDERS: ATTEND Nurse Practitioner
DX: T14.8XXA Other injury of unspecified body region, initial encounter (principal)
CPT/HCPCS: 36415; 80048; 85027

== ENCOUNTER 2019-04-14 05:02 | Inpatient (IN) | payer MEDICARE ==
[2019-04-14] MEDS ORDERED: HEPARIN SODIUM,PORCINE 5,000 UNIT/ML 1 ML VIAL IV STA (05:30)
[2019-04-14] MEDS ORDERED: LABETALOL 5 MG/ML VIAL MDV IVP STA (05:31)
--- NOTE | 2019-04-14 05:41 | ED ---
Chest Pain HPI - General Chief Complaint: Chest Pain Stated Complaint: Chest pain Time Seen by Provider: 04/14/19 05:06 Source: patient, EMS Mode of arrival: EMS Limitations: no limitations - History of Present Illness Initial Comments: This patient is an 88-year-old woman who presents to be evaluate for chest pain. She states that around 6 hours previous she had the onset of substernal pain. She did take nitroglycerin which relieved the symptoms, however when the symptoms recurred tonight she phoned EMS. She states that the pains are similar to previous pain she has had associated with cardiac disease when she required stents to be placed. When EMS arrived this morning they administered aspirin and also gave nitroglycerin, and the patient states that her pain has again resolved. MD Complaint: chest pain Onset/Timin -: hour(s) Onset: during rest Pain Location: substernal Pain Radiation: none Severity: moderate Quality: heaviness Consistency: now resolved Improves With: nitroglycerin Worsens With: nothing Anginal Symptoms: dyspnea Treatments Prior to Arrival: aspirin, nitroglycerin - Related Data Home Medications Medication Instructions Recorded Confirmed Ascorbic Acid [Vitamin C] 1,000 mg PO DAILY 03/27/17 04/14/19 Lisinopril [Prinivil] 20 mg PO DAILY 03/27/17 04/14/19 Multivitamins, Thera [Multivitamin 1 tab PO DAILY 04/19/18 04/14/19 (formulary)] Cholecalciferol [Vitamin D3 (25 5,000 unit PO DAILY 10/05/18 04/14/19 Mcg = 1000 Iu)] Clopidogrel [Plavix] 75 mg PO DAILY 10/05/18 04/14/19 Previous Rx's Medication Instructions Recorded Aspirin 81 mg PO DAILY 30 Days #30 chewable 04/21/18 Isosorbide Mononitrate ER [Imdur] 30 mg PO DAILY 30 Days #30 tab 04/21/18 Nitroglycerin Sl Tabs [Nitrostat] 0.4 mg SUBLINGUAL Q5M PRN #7 tab 10/07/18 Atorvastatin [Lipitor] 80 mg PO DAILY #30 tab 11/13/18 Metoprolol Tartrate [Lopressor] 25 mg PO DAILY #30 tab 11/13/18 Allergies Allergy/AdvReac Type Severity Reaction Status Date / Time latex Allergy Mild Rash/Hives Verified 04/14/19 07:31 Review of Systems ROS Statement: Those systems with pertinent positive or pertinent negative responses have been documented in the HPI. ROS Other: All systems not noted in ROS Statement are negative. Constitutional: Denies: fever, chills Respiratory: Reports: dyspnea. Denies: cough Cardiovascular: Reports: as per HPI, chest pain. Denies: palpitations, orthopnea, edema, syncope Gastrointestinal: Denies: abdominal pain, nausea, vomiting, diarrhea, constipation Genitourinary: Denies: dysuria, hematuria Musculoskeletal: Denies: back pain Skin: Denies: rash Neurological: Denies: headache, weakness, numbness EKG Findings - EKG Results: EKG: interpreted by ERMD, sinus rhythm (Rate 85 bpm), normal axis, normal QRS - Blocks, [place], Hypertrophy, ST Abn: Repolarization changes or abnormalities: ST or T wave suggestive of ischemia (Lateral T inversions) Past Medical History Past Medical History: Coronary Artery Disease (CAD), Chest Pain / Angina, Hyperlipidemia, Hypertension, Myocardial Infarction (NM), Osteoarthritis (OA), Pneumonia, Renal Disease Additional Past Medical History / Comment(s): patient has 6 stents Last Myocardial Infarction Date:: Apr 2018 History of Any Multi-Drug Resistant Organisms: None Reported Past Surgical History: Heart Catheterization With Stent Additional Past Surgical History / Comment(s): 2 stents 2 years ago Past Anesthesia/Blood Transfusion Reactions: No Reported Reaction Date of Last Stent Placement:: 10/06/18 Past Psychological History: No Psychological Hx Reported Smoking Status: Never smoker Past Alcohol Use History: None Reported Past Drug Use History: None Reported - Past Family History Mother Family Medical History: Hyperlipidemia, Hypertension General Exam Limitations: no limitations General appearance: alert, in no apparent distress Head exam: Present: atraumatic, normocephalic Eye exam: Present: normal appearance. Absent: scleral icterus, conjunctival injection ENT exam: Present: normal oropharynx Neck exam: Present: normal inspection Respiratory exam: Present: normal lung sounds bilaterally. Absent: respiratory distress, wheezes, rales, rhonchi, stridor Cardiovascular Exam: Present: regular rate, normal rhythm, normal heart sounds. Absent: systolic murmur, diastolic murmur, rubs, gallop GI/Abdominal exam: Present: soft. Absent: distended, tenderness, guarding, rebound, rigid, mass Extremities exam: Present: normal inspection, normal capillary refill. Absent: pedal edema, calf tenderness Back exam: Present: normal inspection. Absent: CVA tenderness (R), CVA tenderness (L) Neurological exam: Present: alert Skin exam: Present: warm, dry, intact, normal color. Absent: rash Course Vital Signs 04/14/19 04/14/19 04/14/19 05:05 05:13 05:19 Temperature 97.5 F L Pulse Rate 82 81 Pulse Rate [ 82 Softball Player ] Respiratory 18 20 Rate Blood Pressure 193/92 O2 Sat by Pulse 98 99 Oximetry 04/14/19 04/14/19 05:25 07:51 Temperature Pulse Rate 77 Pulse Rate [ Softball Player ] Respiratory 16 Rate Blood Pressure 206/83 150/83 O2 Sat by Pulse 97 Oximetry Chest Pain MDM - MDM This patient is an 88-year-old woman presenting with multiple episodes of chest pain resolving with nitroglycerin. She did have an EKG from EMS that did show ST depressions in the inferior leads as well as lateral. These have improved on our EKG, and the patient is symptom-free. Case discussed with Dr. Jane who is very familiar with the patient and cardiology will see her shortly. His treatment recommendations are incorporated. Disposition Clinical Impression: Acute coronary syndrome Disposition: ADMITTED IP TO THIS [facility] Condition: Serious Is patient prescribed a controlled substance at d/c from ED?: No
[2019-04-14] MEDS: HEPARIN SOD,PORK IN 0.45% NACL 25,000 UNIT in 0.45% NACL 1 250ML.BAG IV SCH (05:42)
[2019-04-14 05:43] LABS: Anisocytosis Slight; Basophils # (A) 0.1 k/uL (0-0.2); Basophils % (A) 1 %; Eosinophils # (A) 0.2 k/uL (0-0.7); Eosinophils % (A) 3 %; HCT 39.2 % (34.0-46.0); HGB 13.4 gm/dL (11.4-16.0); Lymphocytes # (A) 2.1 k/uL (1.0-4.8); Lymphocytes % (A) 27 %; MCH 31.4 pg (25.0-35.0); MCHC 34.2 g/dL (31.0-37.0); MCV 91.9 fL (80.0-100.0); Mean Platelet Volume 7.3; Monocytes # (A) 0.5 k/uL (0-1.0); Monocytes % (A) 7 %; Neutrophils # (A) 4.5 k/uL (1.3-7.7); Neutrophils % (A) 60 %; Platelet Count 175 k/uL (150-450); RBC 4.27 m/uL (3.80-5.40); RDW 16.6 % (11.5-15.5); WBC 7.6 k/uL (3.8-10.6)
[2019-04-14 05:54] LABS: Calcium 9.1 mg/dL (8.4-10.2); Magnesium 2.1 mg/dL (1.6-2.3); Potassium 4.5 mmol/L (3.5-5.1); Total Bilirubin 0.4 mg/dL (0.2-1.3); Total Protein 7.3 g/dL (6.3-8.2)
[2019-04-14 06:09] LABS: Partial Thromboplastin Time 22.9 sec (22.0-30.0); Prothrombin Time 10.6 sec (9.0-12.0)
--- NOTE | 2019-04-14 06:14 | XR ---
EXAM: XR Chest, 1 View. CLINICAL HISTORY: Reason: chest pain TECHNIQUE: Frontal view of the chest. COMPARISON: 10/05/18 FINDINGS: Lungs: Lung volumes are within normal limits. Mildly prominent interstitial markings in both lungs may be due to mild interstitial edema. No definite airspace consolidation. Pleural spaces: Unremarkable. No pneumothorax. Heart: Heart size top normal. Mediastinum: No mediastinal widening or shift. Bones: Unremarkable. No acute fracture. IMPRESSION: Questionable mild interstitial edema. No definite airspace consolidation.
[2019-04-14] MEDS ORDERED: CLOPIDOGREL 75 MG TAB PO STA (06:34)
[2019-04-14] MEDS ORDERED: ASPIRIN 81 MG PO STA (06:34)
[2019-04-14] MEDS ORDERED: NITROGLYCERIN SL TABS 0.4 MG TAB SUBLINGUAL PRN (06:34)
[2019-04-14] MEDS ORDERED: SODIUM CHLORIDE 0.9% 1,000 ML IV SCH (06:45)
[2019-04-14] MEDS ORDERED: CHOLECALCIFEROL 1,000 UNIT TAB PO SCH (09:00)
[2019-04-14] MEDS ORDERED: ISOSORBIDE MONONITRATE ER 30 MG TAB.ER.24H PO SCH (09:00)
[2019-04-14] MEDS ORDERED: LISINOPRIL 20 MG TAB PO SCH (09:00)
[2019-04-14] MEDS ORDERED: METOPROLOL TARTRATE 25 MG TAB PO SCH (09:00)
[2019-04-14] MEDS ORDERED: ASCORBIC ACID 500 MG TAB PO SCH (09:00)
--- NOTE | 2019-04-14 12:40 | P.CRDCN ---
History of Present Illness History of present illness: This is a pleasant 88-year-old female past medical history significant coronary artery disease s/p stent placement, peripheral vascular disease s/p athrectomy, chronic kidney disease, dyslipidemia, hypertension and daily alcohol intake. She follows in the office with Dr. Jane. She states she had an episode of chest heaviness like someone was sitting on her chest associated with mild shortness of breath. No radiation to the arm, back, neck or jaw. Denies dizziness, palpitations, diaphoresis, nausea or vomiting. This felt similar to how she felt in the past in the setting myocardial infarction. She took 1 nitro and then called EMS. They gave a second nitro and her pain subsided. She has had no further chest pain since that time. Initial EKG from EMS reviewed and revealed [address] depression in inferior and lateral leads. Repeat at the hospital shows improvement. Chest x-ray reveals mild interstitial edema. Laboratory data reviewed, CBC unremarkable, sodium 140, potassium 4.5, creatinine 1.64 with a GFR of 28, magnesium 2.1, initial troponin less than 0.017 second 0.063. Current cardiac medications include Plavix 75 mg daily, aspirin 81 mg daily, metoprolol 25 mg daily, lisinopril 20 mg daily, Imdur 30 mg daily and atorvastatin 80 mg. Recent cardiac catheterization performed September 2017 revealed right coronary artery has an ostial lesion of 99% and was heavily calcified, left main free of significant disease, LAD widely patent stent in the proximal portion with no significant disease, circumflex with a 45% narrowing proximally, patent stent in the OM, patent stent in the proximal circumflex. She underwent successful stent placement of the RCA that time. At the time of my exam: CONSTITUTIONAL: Denies fever. Denies chills. EYES: Denies blurred vision. Denies vision changes. Denies eye pain. EARS, NOSE, MOUTH & THROAT: Denies headache. Denies sore throat. Denies ear pain. CARDIOVASCULAR: Denies chest pain. Denies shortness of breath. Denies orthopnea. Denies PND. Denies palpitations. RESPIRATORY: Denies cough. GASTROINTESTINAL: Denies abdominal pain. Denies diarrhea. Denies constipation. Denies nausea. Denies vomiting. MUSCULOSKELETAL: Denies myalgias. INTEGUMENTARY: Denies pruitis. Denies rash. NEUROLOGIC: Denies numbness. Denies tingling. Denies weakness. PSYCHIATRIC: Denies anxiety. Denies depression. ENDOCRINE: Denies fatigue. Denies weight change. Denies polydipsia. Denies polyurina. GENITOURINARY: Denies burning, hematuria or urgency with micturation. HEMATOLOGIC: Denies history of anemia. Denies bleeding. Blood pressure 165/79 heart rate 69 afebrile maintaining oxygen saturation GENERAL: This is a 88-year-old female in no apparent distress at the time of my examination. HEENT: Head is atraumatic, normocephalic. Pupils are equal, round. Sclerae anicteric. Conjunctivae are clear. Mucous membranes of the mouth are moist. Neck is supple. There is no jugular venous distention. No carotid bruit is heard. LUNGS: Clear to auscultation no wheezes, rales or rhonchi. No chest wall tenderness is noted on palpation or with deep breathing. HEART: Regular rate and rhythm with systolic ejection murmur at the apex, no rubs or gallops. S1 and S2 heard. ABDOMEN: Soft, nontender. Bowel sounds are heard. No organomegaly noted. EXTREMITIES: No evidence of peripheral edema and no calf tenderness noted. VASCULAR: Radial and dorsalis pedis pulses palpated, no evidence of clubbing. NEUROLOGIC: Patient is awake, alert and oriented x3. ASSESSMENT Non-ST elevated myocardial infarction History of coronary artery disease status post multiple stent placements Hypertension Dyslipidemia Chronic kidney disease PLAN Continue heparin infusion. Repeat echocardiogram. Gently hydrate with normal saline at 75cc/hr. Recommend proceeding with cardiac catheterization to assess for progression of coronary artery disease. I have discussed the risks, benefits and alternative therapies for the above-mentioned procedure and for both sedation/analgesia as well as necessary blood product administration, if indicated, as they pertain to this patient. The patient has indicated understanding and acceptance of the risks and procedures discussed. Questions have been answered appropriately and she is agreeable to move forward with above stated procedure. Discussed with her primary closing agent Dr. Jane and she is scheduled for heart catheterization tomorrow. Transfer to [facility] unit. Further recommendations to follow. Thank you kindly for this consultation. Nurse Practitioner note has been reviewed, I agree with a documented findings and plan of care. Patient was seen and examined. Past Medical History Past Medical History: Coronary Artery Disease (CAD), Chest Pain / Angina, Hyperlipidemia, Hypertension, Myocardial Infarction ([place]), Osteoarthritis (OA), Pneumonia, Renal Disease, Vascular Disorder Additional Past Medical History / Comment(s): PAD, chronic kidney disease. Last Myocardial Infarction Date:: Apr 2018 History of Any Multi-Drug Resistant Organisms: None Reported Past Surgical History: Heart Catheterization With Stent Additional Past Surgical History / Comment(s): PCI with stents, PTBA.athrectomy R popliteal and R iliac stent Past Anesthesia/Blood Transfusion Reactions: No Reported Reaction Date of Last Stent Placement:: 10/06/18 Smoking Status: Never smoker - Past Family History Mother Family Medical History: No Reported History Additional Family Medical History / Comment(s): Mother was healthy Father Family Medical History: No Reported History Additional Family Medical History / Comment(s): Father was healthy. Medications and Allergies Home Medications Medication Instructions Recorded Confirmed Type Ascorbic Acid [Vitamin C] 1,000 mg PO DAILY 03/27/17 04/14/19 History Lisinopril [Prinivil] 20 mg PO DAILY 03/27/17 04/14/19 History Multivitamins, Thera [Multivitamin 1 tab PO DAILY 04/19/18 04/14/19 History (formulary)] Aspirin 81 mg PO DAILY 30 Days #30 chewable 04/21/18 04/14/19 Rx Isosorbide Mononitrate ER [Imdur] 30 mg PO DAILY 30 Days #30 tab 04/21/18 04/14/19 Rx Cholecalciferol [Vitamin D3 (25 5,000 unit PO DAILY 10/05/18 04/14/19 History Mcg = 1000 Iu)] Clopidogrel [Plavix] 75 mg PO DAILY 10/05/18 04/14/19 History Nitroglycerin Sl Tabs [Nitrostat] 0.4 mg SUBLINGUAL Q5M PRN #7 tab 10/07/18 04/14/19 Rx Atorvastatin [Lipitor] 80 mg PO DAILY #30 tab 11/13/18 04/14/19 Rx Metoprolol Tartrate [Lopressor] 25 mg PO DAILY #30 tab 11/13/18 04/14/19 Rx Allergies Allergy/AdvReac Type Severity Reaction Status Date / Time latex Allergy Mild Rash/Hives Verified 04/14/19 07:31 Physical Exam Vitals: Vital Signs Temp Pulse Pulse Pulse Resp BP BP 04/14/19 09:00 97.6 F 69 17 165/79 04/14/19 07:51 77 16 150/83 04/14/19 05:25 206/83 04/14/19 05:19 82 04/14/19 05:13 81 20 04/14/19 05:05 97.5 F L 82 18 193/92 Pulse Ox 04/14/19 09:00 95 04/14/19 07:51 97 04/14/19 05:25 04/14/19 05:19 04/14/19 05:13 99 04/14/19 05:05 98 Intake and Output 04/13/19 04/14/19 04/14/19 22:59 06:59 14:59 Other: # Voids 1 Weight 58.967 kg Results 04/14/19 05:15 04/14/19 05:15 Cardiac Enzymes 04/14/19 04/14/19 04/14/19 Range/Units 05:15 05:15 11:10 AST 36 (14-36) U/L Troponin I 0.017 0.063 H* (0.000-0.034) ng/mL Coagulation 04/14/19 Range/Units 05:15 PT 10.6 (9.0-12.0) sec APTT 22.9 (22.0-30.0) sec CBC 04/14/19 Range/Units 05:15 WBC 7.6 (3.8-10.6) k/uL RBC 4.27 (3.80-5.40) m/uL Hgb 13.4 (11.4-16.0) gm/dL Hct 39.2 (34.0-46.0) % Plt Count 175 (150-450) k/uL Comprehensive Metabolic Panel 04/14/19 Range/Units 05:15 Sodium 140 (137-145) mmol/L Potassium 4.5 (3.5-5.1) mmol/L Chloride 108 H (98-107) mmol/L Carbon Dioxide 21 L (22-30) mmol/L BUN 38 H (7-17) mg/dL Creatinine 1.64 H (0.52-1.04) mg/dL Glucose 115 H (74-99) mg/dL Calcium 9.1 (8.4-10.2) mg/dL AST 36 (14-36) U/L ALT 25 (9-52) U/L Alkaline Phosphatase 165 H (38-126) U/L Total Protein 7.3 (6.3-8.2) g/dL Albumin 4.0 (3.5-5.0) g/dL Current Medications Generic Name Dose Route Start Last Admin Trade Name Freq PRN Reason Stop Dose Admin Ascorbic Acid 1,000 mg 04/14/19 09:00 Vitamin C PO DAILY [facility] Aspirin 325 mg 04/15/19 09:00 Aspirin PO DAILY [facility] Atorvastatin Calcium 80 mg 04/14/19 09:00 Lipitor PO DAILY [facility] Cholecalciferol 5,000 unit 04/14/19 09:00 Vitamin D3 (25 Mcg = 1000 Iu) PO DAILY [facility] Clopidogrel Bisulfate 75 mg 04/15/19 09:00 Plavix PO DAILY [facility] Heparin Sodium/Sodium Chloride 250 mls @ 7.076 mls/hr 04/14/19 05:30 04/14/19 05:42 25,000 unit/ Sodium Chloride IV 12 units/kg/hr .Q24H [facility] 7.076 mls/hr Administration Protocol 12 UNITS/KG/HR Sodium Chloride 1,000 mls @ 75 mls/hr 04/14/19 11:45 Saline 0.9% IV .[id number] [facility] Isosorbide Mononitrate 30 mg 04/14/19 09:00 Imdur PO DAILY [facility] Lisinopril 20 mg 04/14/19 09:00 Zestril PO DAILY [facility] Metoprolol Tartrate 25 mg 04/14/19 09:00 Lopressor PO DAILY [facility] Nitroglycerin 0.4 mg 04/14/19 06:34 Nitrostat SUBLINGUAL Q5M PRN Chest Pain Intake and Output 04/13/19 04/14/19 04/14/19 22:59 06:59 14:59 Other: # Voids 1 Weight 58.967 kg 04/14/19 05:15 04/14/19 05:15
[2019-04-14] MEDS: ATORVASTATIN 80 MG TAB PO SCH (12:55)
[2019-04-14] MEDS: SODIUM CHLORIDE 0.9% 1,000 ML IV SCH (12:55)
--- NOTE | 2019-04-14 13:01 | ECHOF ---
Referral Reason: MEASUREMENTS -------- HEIGHT: 157.5 cm WEIGHT: 59.0 kg BP: 165/79 IVSd: 1.3 cm (0.6 - 1.1) LVIDd: 3.9 cm (3.9 - 5.3) LVPWd: 1.4 cm (0.6 - 1.1) IVSs: 1.6 cm LVIDs: 3.2 cm LVPWs: 1.5 cm LAESV Index (A-L): 32.53 ml/m Ao Diam: 3.5 cm (2.0 - 3.7) AV Cusp: 2.0 cm (1.5 - 2.6) LA Diam: 2.9 cm (2.7 - 3.8) MV EXCURSION: 16.312 mm (> 18.000) MV EF SLOPE: 117 mm/s (70 - 150) EPSS: 1.5 cm MV E Zhang: 1.43 m/s MV DecT: 150 ms MV A Zhang: 0.71 m/s MV E/A Ratio: 2.01 RAP: 15.00 mmHg RVSP: 70.62 mmHg FINDINGS -------- Sinus rhythm. This was a technically good study. The left ventricular size is normal. There is mild concentric left ventricular hypertrophy. Overa ll left ventricular systolic function is mild-moderately impaired with, an EF between 40 - 45 %. Mi d to basal inferiorlateral is hypokinetic The right ventricle is normal in size. LA is midly dilated 29-33ml/m2. The right atrial size is normal. Interatrial and interventricular septum intact. The aortic valve is trileaflet and appears structurally normal. The mitral valve is normal. The mitral valve leaflets are mildly thickened. Severe mitral regurgi tation is present. The tricuspid valve appears structurally normal. Mild tricuspid regurgitation present. There is m oderate to severe pulmonary hypertension. The right ventricular systolic pressure, as measured by Anshul alamo, is 70.62mmHg. There is no pulmonic regurgitation present. The aortic root size is normal. The inferior vena cava is mildly dilated. There is no pericardial effusion. CONCLUSIONS -------- 1. Sinus rhythm. 2. This was a technically good study. 3. The left ventricular size is normal. 4. There is mild concentric left ventricular hypertrophy. 5. Overall left ventricular systolic function is mild-moderately impaired with, an EF between 40 - 45 %. 6. Mid to basal inferiorlateral is hypokinetic 7. The right ventricle is normal in size. 8. LA is midly dilated 29-33ml/m2. 9. The right atrial size is normal. 10. Interatrial and interventricular septum intact. 11. The aortic valve is trileaflet and appears structurally normal. 12. The mitral valve is normal. 13. The mitral valve leaflets are mildly thickened. 14. Severe mitral regurgitation is present. 15. The tricuspid valve appears structurally normal. 16. Mild tricuspid regurgitation present. 17. There is moderate to severe pulmonary hypertension. 18. The right ventricular systolic pressure, as measured by Doppler, is 70.62mmHg. 19. There is no pulmonic regurgitation present. 20. The aortic root size is normal. 21. The inferior vena cava is mildly dilated. 22. There is no pericardial effusion. TYPE ROLLING MACHINE OPERATOR: Kendal Zuniga RDCS
[2019-04-14] MEDS ORDERED: ALPRAZolam 0.5 MG TAB PO PRN (14:33)
[2019-04-14] MEDS ORDERED: ALPRAZolam 0.25 MG TAB PO PRN (14:33)
--- NOTE | 2019-04-14 17:03 | P.HPIM ---
History of Present Illness H&P Date: 04/14/19 Chief Complaint: Chest pain History of presenting complaint: This is a pleasant 88-year-old patient of Dr. Stoner. Patient's receiver setter receiver setter is Dr. MARI Jane. Chronic stable medical conditions include hypertension, hyperlipidemia, osteoarthritis, chronic kidney disease. Patient has known coronary artery disease. In September of this month patient had 2 stents placed to the RCA. Patient is also had prior stents. I don't 9:00 last night and developed pain across the chest. This was described as a heaviness. Did not radiate to the neck or the arm. There is no dizziness or lightheadedness. No perspiration. Slightly short of breath. This was like her previous episodes. She had another episode in early hours of the morning. But pain was present on and off most of the time. Patient did take nitroglycerin with some relief of symptoms. Presented to the ER. Admitted with a diagnosis of unstable angina and cartilage was consulted. Patient started on IV heparin. is at the bedside. Review of systems: GEN.: Tired EYES: None HEENT: None NECK: None RESPIRATORY: None CARDIOVASCULAR: As above GASTROINTESTINAL: None GENITOURINARY: None MUSCULOSKELETAL: As above LYMPHATICS: None HEMATOLOGICAL: None PSYCHIATRY: None NEUROLOGICAL: None Social history: Alcohol occasionally, no smoking. . Family history: Reviewed, noncontributory to presentation Physical examination: VITAL SIGNS: 97.5, 82, 18, 193/92, 98% on 3 L GENERAL: Average built, laying in bed, not in distress. EYES: Pupils equal. Conjunctiva normal. HEENT: External appearance of nose and ears normal, oral cavity grossly normal. NECK: JVD not raised; masses not palpable. HEART: First and second heart sounds are normal; no edema. LUNGS: Respiratory rate normal; clear to auscultation. ABDOMEN: Soft, nontender, liver spleen not palpable, no masses palpable. PSYCH: Alert and oriented x3; mood and affect normal. NEUROLOGICAL: Cranial nerves grossly intact; no facial asymmetry, power and sensation grossly intact. LYMPHATICS: No lymph nodes palpable in the axilla and neck MUSCULOSKELETAL: Evidence of OA especially in the hands INVESTIGATIONS, reviewed in the clinical context: White count 7.6 hemoglobin 13.4 platelets 175 potassium 4.5 Carbon dioxide 21 bun 38 creatinine 1.64 Troponin I 0.017, 0.063 EKG tracing personally reviewed by me shows ST-T depression in V3 to V6 and inferior leads also in lead 1 and aVL Chest x-ray film personally reviewed by me-shows borderline cardiomegaly questionable venous prominence 2-D echocardiogram shows EF 40-45% moderate to severe pulmonary hypertension, severe mitral regurgitation Assessment: -Acute non-Q-wave myocardial infarction with classical chest pain EKG changes and troponin started to climb -Coronary artery disease with prior history of stents -Hyperlipidemia -Essential hypertension with urgency -Primary osteoarthritis -Peripheral arterial disease -Chronic kidney disease stage III probably from nephrosclerosis Plan: -Patient started and IV heparin. Also on aspirin. And Plavix. Seen by cardiac surgery. Home medications resumed. On gentle hydration. Care was discussed with the patient at the bedside. Cardiology scheduling the patient for a cardiac catheterization tomorrow. Past Medical History Past Medical History: Coronary Artery Disease (CAD), Chest Pain / Angina, Hyperlipidemia, Hypertension, Myocardial Infarction ([place]), Osteoarthritis (OA), Pneumonia, Renal Disease, Vascular Disorder Additional Past Medical History / Comment(s): PAD, chronic kidney disease. Last Myocardial Infarction Date:: Apr 2018 History of Any Multi-Drug Resistant Organisms: None Reported Past Surgical History: Heart Catheterization With Stent Additional Past Surgical History / Comment(s): PCI with stents, PTBA.athrectomy R popliteal and R iliac stent Past Anesthesia/Blood Transfusion Reactions: No Reported Reaction Date of Last Stent Placement:: 10/06/18 Smoking Status: Never smoker - Past Family History Mother Family Medical History: No Reported History Additional Family Medical History / Comment(s): Mother was healthy Father Family Medical History: No Reported History Additional Family Medical History / Comment(s): Father was healthy. Medications and Allergies Home Medications Medication Instructions Recorded Confirmed Type Ascorbic Acid [Vitamin C] 1,000 mg PO DAILY 03/27/17 04/14/19 History Lisinopril [Prinivil] 20 mg PO DAILY 03/27/17 04/14/19 History Multivitamins, Thera [Multivitamin 1 tab PO DAILY 04/19/18 04/14/19 History (formulary)] Aspirin 81 mg PO DAILY 30 Days #30 chewable 04/21/18 04/14/19 Rx Isosorbide Mononitrate ER [Imdur] 30 mg PO DAILY 30 Days #30 tab 04/21/18 04/14/19 Rx Cholecalciferol [Vitamin D3 (25 5,000 unit PO DAILY 10/05/18 04/14/19 History Mcg = 1000 Iu)] Clopidogrel [Plavix] 75 mg PO DAILY 10/05/18 04/14/19 History Nitroglycerin Sl Tabs [Nitrostat] 0.4 mg SUBLINGUAL Q5M PRN #7 tab 10/07/18 04/14/19 Rx Atorvastatin [Lipitor] 80 mg PO DAILY #30 tab 11/13/18 04/14/19 Rx Metoprolol Tartrate [Lopressor] 25 mg PO DAILY #30 tab 11/13/18 04/14/19 Rx Allergies Allergy/AdvReac Type Severity Reaction Status Date / Time latex Allergy Mild Rash/Hives Verified 04/14/19 07:31 Physical Exam Vitals: Vital Signs Temp Pulse Pulse Pulse Resp BP BP 04/14/19 12:00 82 17 182/82 04/14/19 09:00 97.6 F 69 17 165/79 04/14/19 07:51 77 16 150/83 04/14/19 05:25 206/83 04/14/19 05:19 82 04/14/19 05:13 81 20 04/14/19 05:05 97.5 F L 82 18 193/92 Pulse Ox 04/14/19 12:00 96 04/14/19 09:00 95 04/14/19 07:51 97 04/14/19 05:25 04/14/19 05:19 04/14/19 05:13 99 04/14/19 05:05 98 Intake and Output 04/14/19 04/14/19 04/14/19 06:59 14:59 22:59 Intake Total 66.396 Balance 66.396 Intake: Intake, IV Titration 66.396 Amount Heparin Sod,Pork in 0.45% 66.396 NaCl 25,000 unit In 0.45 % NaCl 1 250ml.bag @ 12 UNITS/KG/HR 7.076 mls/hr IV .Q24H [facility] Rx#: [id number] Other: # Voids 1 Weight 58.967 kg Results CBC & Chem 7: 04/14/19 05:15 04/14/19 05:15 Labs: Abnormal Lab Results - Last 24 Hours (Table) 04/14/19 04/14/19 04/14/19 Range/Units 05:15 05:15 11:10 RDW 16.6 H (11.5-15.5) % APTT (22.0-30.0) sec Chloride 108 H (98-107) mmol/L Carbon Dioxide 21 L (22-30) mmol/L BUN 38 H (7-17) mg/dL Creatinine 1.64 H (0.52-1.04) mg/dL Glucose 115 H (74-99) mg/dL Alkaline Phosphatase 165 H (38-126) U/L Troponin I 0.063 H* (0.000-0.034) ng/mL 04/14/19 Range/Units 13:10 RDW (11.5-15.5) % APTT 72.0 H (22.0-30.0) sec Chloride (98-107) mmol/L Carbon Dioxide (22-30) mmol/L BUN (7-17) mg/dL Creatinine (0.52-1.04) mg/dL Glucose (74-99) mg/dL Alkaline Phosphatase (38-126) U/L Troponin I (0.000-0.034) ng/mL Thrombosis Risk Factor Assmnt - Choose All That Apply Any of the Below Risk Factors Present?: Yes Other Risk Factors: Yes Each Risk Factor Represents 3 Points: Age 75 years or older Other congenital or acquired thrombophilia - If yes, enter type in comment: No Thrombosis Risk Factor Assessment Total Risk Factor Score: 3 Thrombosis Risk Factor Assessment Level: Moderate Risk
[2019-04-14] MEDS ORDERED: NITROGLYCERIN-D5W PMX 50 MG in DEXTROSE/WATER 1 250ML.BAG IV SCH (23:45)
[2019-04-15] MEDS ORDERED: FUROSEMIDE 10 MG/ML 4 ML VIAL IV STA ×2 (00:20→10:13)
[2019-04-15 00:47] LABS: Anisocytosis Slight; Basophils # (A) 0.1 k/uL (0-0.2); Basophils % (A) 1 %; Eosinophils # (A) 0.3 k/uL (0-0.7); Eosinophils % (A) 2 %; HCT 45.7 % (34.0-46.0); HGB 14.7 gm/dL (11.4-16.0); Lymphocytes # (A) 5.1 k/uL (1.0-4.8); Lymphocytes % (A) 35 %; MCH 30.7 pg (25.0-35.0); MCHC 32.1 g/dL (31.0-37.0); MCV 95.5 fL (80.0-100.0); Monocytes # (A) 0.8 k/uL (0-1.0); Monocytes % (A) 6 %; Neutrophils # (A) 7.9 k/uL (1.3-7.7); Neutrophils % (A) 54 %; Platelet Count 196 k/uL (150-450); RBC 4.79 m/uL (3.80-5.40); RDW 17.2 % (11.5-15.5); WBC 14.6 k/uL (3.8-10.6)
[2019-04-15] MEDS ORDERED: ETOMIDATE 2 MG/ML 10 ML VIAL ONE (00:50)
[2019-04-15] MEDS ORDERED: CHLORHEXIDINE GLUCONATE 15 ML CUP MUCOUS MEM ONE (00:50)
[2019-04-15] MEDS: PROPOFOL 1,000 MG in EMPTY BAG 1 BAG IV SCH ×4 (01:00→20:08)
[2019-04-15 01:03] LABS: Glucose,Whole Blood 202 mg/dL (75-99)
--- NOTE | 2019-04-15 01:08 | XR ---
EXAM: XR Chest, 1 View CLINICAL HISTORY: Fluid overload TECHNIQUE: Frontal view of the chest. COMPARISON: Chest x-ray dated 04/14/2019 FINDINGS: Lungs: Diffuse airspace opacities likely representing pulmonary vascular congestion/pulmonary edema. Pleural space: Unremarkable. No pneumothorax. Heart: Unremarkable. No cardiomegaly. Mediastinum: Unremarkable. Bones/joints: Unremarkable. IMPRESSION: Diffuse airspace opacities likely representing pulmonary vascular congestion/pulmonary edema.
[2019-04-15] MEDS ORDERED: MORPHINE SULFATE 4 MG/ML SYRINGE IVP STA (01:10)
[2019-04-15 01:24] LABS: Potassium 4.8 mmol/L (3.5-5.1)
[2019-04-15 02:05] LABS: ABG Base Excess -6.3 mmol/L; ABG HCO3 21 mmol/L (21-25); ABG Oxygen Saturation 97.8 % (94-97); ABG PCO2 45 mmHg (35-45); ABG PH 7.27 (7.35-7.45); ABG PO2 123 mmHg (83-108); ABG TCO2 22 mmol/L (19-24); Allen Test Performed? Yes
--- NOTE | 2019-04-15 02:16 | ED ---
Medical Decision Making - Medical Decision Making This is a floor note, as I was paged for patient in respiratory distress. Arrived to find patient in respiratory distress. She was very hypertensive with blood pressure approximately 210/140. Oxygen saturations were in the upper 80s on a 100% nonrebreather mask. Heart rate was in the upper 110s. Patient was diaphoretic and using accessory muscles. Exam also reveals crackles throughout and wheezes. I did give patient IV nitroglycerin in aliquots of 2 mL's at a time and was able to bring her blood pressure down to the neighborhood of 160/90. The patient heart rate had decreased to 105. I was at that point having the patient placed on BiPAP when she began vomiting and would not tolerate the BiPAP. Therefore patient was intubated. She was tiring and did require intubation for impending respiratory failure. Patient given etomidate 20 mg and I was able to intubate her under direct laryngoscopy, easily, using a Mac 3 blade and a 7.5 endotracheal tube. Tube placement by color capnography and auscultation. Patient tolerated procedure without complication. The sats did improve to the mid 90s, heart rate was in the low 90s, blood pressure stable. I did order confirming chest x-ray. Nurses are contacting [facility] for additional orders. I was at that point called back to emergency for a critical patient. - Lab Data Result diagrams: 04/15/19 00:30 04/15/19 00:30 Lab Results 04/14/19 04/14/19 04/14/19 Range/Units 05:15 05:15 05:15 WBC 7.6 (3.8-10.6) k/uL RBC 4.27 (3.80-5.40) m/uL Hgb 13.4 (11.4-16.0) gm/dL Hct 39.2 (34.0-46.0) % MCV 91.9 (80.0-100.0) fL MCH 31.4 (25.0-35.0) pg MCHC 34.2 (31.0-37.0) g/dL RDW 16.6 H (11.5-15.5) % Plt Count 175 (150-450) k/uL Neutrophils % 60 % Lymphocytes % 27 % Monocytes % 7 % Eosinophils % 3 % Basophils % 1 % Neutrophils # 4.5 (1.3-7.7) k/uL Lymphocytes # 2.1 (1.0-4.8) k/uL Monocytes # 0.5 (0-1.0) k/uL Eosinophils # 0.2 (0-0.7) k/uL Basophils # 0.1 (0-0.2) k/uL Anisocytosis Slight PT 10.6 (9.0-12.0) sec INR 1.0 (<1.2) APTT 22.9 (22.0-30.0) sec Sodium 140 (137-145) mmol/L Potassium 4.5 (3.5-5.1) mmol/L Chloride 108 H (98-107) mmol/L Carbon Dioxide 21 L (22-30) mmol/L Anion Gap 11 mmol/L BUN 38 H (7-17) mg/dL Creatinine 1.64 H (0.52-1.04) mg/dL Est GFR (CKD-EPI)AfAm 32 (>60 ml/min/1.73 sqM) Est GFR (CKD-EPI)NonAf 28 (>60 ml/min/1.73 sqM) Glucose 115 H (74-99) mg/dL POC Glucose (mg/dL) (75-99) mg/dL POC Glu Chemical Pathologist ID Calcium 9.1 (8.4-10.2) mg/dL Magnesium 2.1 (1.6-2.3) mg/dL Total Bilirubin 0.4 (0.2-1.3) mg/dL AST 36 (14-36) U/L ALT 25 (9-52) U/L Alkaline Phosphatase 165 H (38-126) U/L Troponin I (0.000-0.034) ng/mL Total Protein 7.3 (6.3-8.2) g/dL Albumin 4.0 (3.5-5.0) g/dL 04/14/19 04/14/19 04/14/19 Range/Units 05:15 11:10 13:10 WBC (3.8-10.6) k/uL RBC (3.80-5.40) m/uL Hgb (11.4-16.0) gm/dL Hct (34.0-46.0) % MCV (80.0-100.0) fL MCH (25.0-35.0) pg MCHC (31.0-37.0) g/dL RDW (11.5-15.5) % Plt Count (150-450) k/uL Neutrophils % % Lymphocytes % % Monocytes % % Eosinophils % % Basophils % % Neutrophils # (1.3-7.7) k/uL Lymphocytes # (1.0-4.8) k/uL Monocytes # (0-1.0) k/uL Eosinophils # (0-0.7) k/uL Basophils # (0-0.2) k/uL Anisocytosis PT (9.0-12.0) sec INR (<1.2) APTT 72.0 H (22.0-30.0) sec Sodium (137-145) mmol/L Potassium (3.5-5.1) mmol/L Chloride (98-107) mmol/L Carbon Dioxide (22-30) mmol/L Anion Gap mmol/L BUN (7-17) mg/dL Creatinine (0.52-1.04) mg/dL Est GFR (CKD-EPI)AfAm (>60 ml/min/1.73 sqM) Est GFR (CKD-EPI)NonAf (>60 ml/min/1.73 sqM) Glucose (74-99) mg/dL POC Glucose (mg/dL) (75-99) mg/dL POC Glu Chemical Pathologist ID Calcium (8.4-10.2) mg/dL Magnesium (1.6-2.3) mg/dL Total Bilirubin (0.2-1.3) mg/dL AST (14-36) U/L ALT (9-52) U/L Alkaline Phosphatase (38-126) U/L Troponin I 0.017 0.063 H* (0.000-0.034) ng/mL Total Protein (6.3-8.2) g/dL Albumin (3.5-5.0) g/dL 04/14/19 04/15/19 04/15/19 Range/Units 18:14 00:30 00:30 WBC (3.8-10.6) k/uL RBC (3.80-5.40) m/uL Hgb (11.4-16.0) gm/dL Hct (34.0-46.0) % MCV (80.0-100.0) fL MCH (25.0-35.0) pg MCHC (31.0-37.0) g/dL RDW (11.5-15.5) % Plt Count (150-450) k/uL Neutrophils % % Lymphocytes % % Monocytes % % Eosinophils % % Basophils % % Neutrophils # (1.3-7.7) k/uL Lymphocytes # (1.0-4.8) k/uL Monocytes # (0-1.0) k/uL Eosinophils # (0-0.7) k/uL Basophils # (0-0.2) k/uL Anisocytosis PT (9.0-12.0) sec INR (<1.2) APTT 56.2 H (22.0-30.0) sec Sodium (137-145) mmol/L Potassium (3.5-5.1) mmol/L Chloride (98-107) mmol/L Carbon Dioxide (22-30) mmol/L Anion Gap mmol/L BUN (7-17) mg/dL Creatinine (0.52-1.04) mg/dL Est GFR (CKD-EPI)AfAm (>60 ml/min/1.73 sqM) Est GFR (CKD-EPI)NonAf (>60 ml/min/1.73 sqM) Glucose (74-99) mg/dL POC Glucose (mg/dL) (75-99) mg/dL POC Glu Chemical Pathologist ID Calcium (8.4-10.2) mg/dL Magnesium (1.6-2.3) mg/dL Total Bilirubin (0.2-1.3) mg/dL AST (14-36) U/L ALT (9-52) U/L Alkaline Phosphatase (38-126) U/L Troponin I 0.055 H* 0.047 H* (0.000-0.034) ng/mL Total Protein (6.3-8.2) g/dL Albumin (3.5-5.0) g/dL 04/15/19 04/15/19 04/15/19 Range/Units 00:30 00:30 00:50 WBC 14.6 H (3.8-10.6) k/uL RBC 4.79 (3.80-5.40) m/uL Hgb 14.7 (11.4-16.0) gm/dL Hct 45.7 (34.0-46.0) % MCV 95.5 (80.0-100.0) fL MCH 30.7 (25.0-35.0) pg MCHC 32.1 (31.0-37.0) g/dL RDW 17.2 H (11.5-15.5) % Plt Count 196 (150-450) k/uL Neutrophils % % Lymphocytes % % Monocytes % % Eosinophils % % Basophils % % Neutrophils # (1.3-7.7) k/uL Lymphocytes # (1.0-4.8) k/uL Monocytes # (0-1.0) k/uL Eosinophils # (0-0.7) k/uL Basophils # (0-0.2) k/uL Anisocytosis Slight PT (9.0-12.0) sec INR (<1.2) APTT (22.0-30.0) sec Sodium 141 (137-145) mmol/L Potassium 4.8 (3.5-5.1) mmol/L Chloride 112 H (98-107) mmol/L Carbon Dioxide 16 L (22-30) mmol/L Anion Gap 13 mmol/L BUN 31 H (7-17) mg/dL Creatinine 1.57 H (0.52-1.04) mg/dL Est GFR (CKD-EPI)AfAm 34 (>60 ml/min/1.73 sqM) Est GFR (CKD-EPI)NonAf 30 (>60 ml/min/1.73 sqM) Glucose 162 H (74-99) mg/dL POC Glucose (mg/dL) 202 H (75-99) mg/dL POC Glu Chemical Pathologist ID Magali Delcid Calcium 9.0 (8.4-10.2) mg/dL Magnesium (1.6-2.3) mg/dL Total Bilirubin (0.2-1.3) mg/dL AST (14-36) U/L ALT (9-52) U/L Alkaline Phosphatase (38-126) U/L Troponin I (0.000-0.034) ng/mL Total Protein (6.3-8.2) g/dL Albumin (3.5-5.0) g/dL - Radiology Data Radiology results: pending Disposition Clinical Impression: Acute coronary syndrome, Respiratory failure, Hypertensive emergency, Pulmonary edema Disposition: ADMITTED IP TO THIS HOSP Condition: Serious Procedures - Intubation Sedative: Etomidate Laryngoscope: Ke Size: 3 ET Tube Size: 7.5 ET Tube Uncuffed: No Tube Placement Confirmation: visualized tube passing through cords, equal breath sounds bilaterally, no breath sounds over epigastrium, confirmation by capnometry Patient Tolerated Procedure: well Intubation Complications: none
--- NOTE | 2019-04-15 02:20 | XR ---
EXAM: XR Chest, 1 View CLINICAL HISTORY: Tube placement TECHNIQUE: Frontal view of the chest. COMPARISON: Chest x-ray dated 04/15/2019 FINDINGS: Lungs: Diffuse airspace opacities which may represent pulmonary vascular congestion versus an infectious process. Pleural space: Question mild left-sided pleural effusion. No pneumothorax. Heart: Unremarkable. No cardiomegaly. Mediastinum: Unremarkable. Bones/joints: Unremarkable. Tubes, lines and devices: Endotracheal tube terminates 2.5 cm above the mateo. Enteric tube is seen coursing the stomach. IMPRESSION: 1. Endotracheal tube terminates 2.5 cm above the mateo. 2. Enteric tube is seen coursing the stomach. 3. Diffuse airspace opacities which may represent pulmonary vascular congestion versus an infectious process. 4. Question mild left-sided pleural effusion.
[2019-04-15 05:50] LABS: ABG Base Excess -3.1 mmol/L; ABG HCO3 23 mmol/L (21-25); ABG Oxygen Saturation 99.6 % (94-97); ABG PCO2 41 mmHg (35-45); ABG PH 7.35 (7.35-7.45); ABG PO2 243 mmHg (83-108); ABG TCO2 24 mmol/L (19-24); Allen Test Performed? Yes
[2019-04-15] MEDS ORDERED: NALOXONE 0.4 MG/ML 1 ML VIAL IV PRN (06:22)
[2019-04-15] MEDS: SODIUM CHLORIDE 0.9% 1,000 ML IV SCH (06:36)
[2019-04-15 06:54] LABS: Anion Gap 13 mmol/L; Carbon Dioxide 10 mmol/L (22-30); Chloride 100 mmol/L (98-107); Glucose 125 mg/dL (74-99); Potassium 4.5 mmol/L (3.5-5.1); Sodium 123 mmol/L (137-145)
[2019-04-15 06:55] LABS: Blood Urea Nitrogen 25 mg/dL (7-17)
[2019-04-15 07:00] LABS: Calcium 6.4 mg/dL (8.4-10.2)
[2019-04-15 07:01] LABS: African American GFR (CKD) 40 (>60 ml/min/1.73 sqM)
[2019-04-15] MEDS: IPRATROPIUM-ALBUTEROL 3 ML NEB INHALATION SCH ×4 (07:21→20:07)
[2019-04-15] MEDS: NOREPINEPHRINE 4 MG in SODIUM CHLORIDE 0.9% 250 ML IV SCH ×3 (07:23→16:57)
[2019-04-15] MEDS: HEPARIN SOD,PORK IN 0.45% NACL 25,000 UNIT in 0.45% NACL 1 250ML.BAG IV SCH (07:23)
[2019-04-15] MEDS ORDERED: CISATRACURIUM 2 MG/ML 5 ML VIAL IV ONE (08:24)
[2019-04-15] MEDS ORDERED: IV FLUID CONTINUATION 1,000 ML IV ONE ×4 (08:25)
[2019-04-15 08:56] LABS: Magnesium 1.5 mg/dL (1.6-2.3); Phosphorus 3.3 mg/dL (2.5-4.5)
[2019-04-15] MEDS ORDERED: CHLORHEXIDINE GLUCONATE 15 ML CUP MUCOUS MEM SCH (09:00)
[2019-04-15] MEDS ORDERED: CLOPIDOGREL 75 MG TAB PO SCH (09:00)
[2019-04-15] MEDS ORDERED: ASPIRIN 325 MG TAB PO SCH (09:00)
[2019-04-15 09:34] LABS: ABG Base Excess -1.2 mmol/L; ABG HCO3 24 mmol/L (21-25); ABG Oxygen Saturation 97.1 % (94-97); ABG PCO2 43 mmHg (35-45); ABG PH 7.36 (7.35-7.45); ABG PO2 91 mmHg (83-108); ABG TCO2 26 mmol/L (19-24); Allen Test Performed? Yes
--- NOTE | 2019-04-15 09:46 | PCN ---
PROCEDURE NOTE PROCEDURE: Left internal jugular triple-lumen catheter. PREOPERATIVE DIAGNOSIS: Administration of fluids and pressors. POSTOPERATIVE DIAGNOSIS: Administration of fluids and pressors. There was no immediate complication, there was good blood return from all 3 ports. Indication: Hemodynamic monitoring/Intravenous access. A time-out was completed verifying correct patient, procedure, site, positioning, and implant(s) or special equipment if applicable. The patient was placed in a dependent position appropriate for triple lumen catheter placement based on the vein to be cannulated. The patient's left neck was prepped and draped in sterile fashion. 1% Lidocaine was used to anesthetize the surrounding skin area. A triple lumen 9F Cordis catheter was introduced into the internal jugular vein using Seldinger technique. The catheter was threaded smoothly over the guide wire and appropriate blood return was obtained. Each lumen of the catheter was evacuated of air and flushed with sterile saline. The catheter was then sutured in place to the skin and a sterile dressing applied. Perfusion to the extremity distal to the point of catheter insertion was checked and found to be adequate. There was informed consent and universal timeout. There was good blood return from all 3 ports. The catheter was sutured in place. A chest x-ray was done to show the catheter in the tip of the right atrium. Again, there was no immediate complications. The patient tolerated the procedure well. Sterile dressing was applied by the nurse. JEAN / SALVATORE: [id number] /
--- NOTE | 2019-04-15 09:50 | XR ---
EXAMINATION TYPE: XR chest 1V confirm line [facility] DATE OF EXAM: 04/15/2019 COMPARISON: 04/15/2019 HISTORY: 88-year-old female central line placement TECHNIQUE: Single frontal view of the chest is obtained. FINDINGS: Satisfactory ET tube. NG tube is seen to the inferior aspect of the image. NG tube sidehol e appears to be at the GE junction level. Left IJ CVC tip at the upper right atrium, satisfactory. He art upper limits of normal in size. Diffuse interstitial prominence and hazy bibasilar opacities pers ist. IMPRESSION: 1. Left IJ CVC tip in the upper right atrium. 2. The NG tube sidehole appears to be at the GE junction. Consider advancement into the stomach. 3. Possible underlying pulmonary vascular congestion with small effusions and adjacent atelectasis an d/or consolidation at the lung bases.
--- NOTE | 2019-04-15 09:58 | CONS ---
CONSULTATION PULMONARY/CRITICAL CARE CONSULTATION: DATE OF CONSULTATION: 04/15/2019 This is a patient who is 88 years of age. She apparently presented via EMS to the emergency room with complaints of chest pain. The patient apparently had been having pain for about 6 hours prior to her coming into the emergency room. She apparently took nitroglycerin, which relieved the symptoms. The pain recurred and for that reason, EMS was called. The patient does have a history of cardiac disease. She does have a history of previous stent placements. Anyway, the patient was seen in the emergency room, admitted to the floor on 04/14/2019. She came to the ICU on 04/15. She apparently developed acute respiratory distress. Initially, she was a NO CODE but the family was talked to about code status and they went back and forth with the nurse Pal, and finally they decided that she would be a FULL CODE at this time. Because of shortness of breath, respiratory distress, extremis, frothy blood-tinged sputum, she was intubated by the ER doctor at about 1 o'clock in the morning on 04/15. She is now here in the ICU. The patient is on the volume assist-control mode, rate of 16, tidal volume 400, FiO2 60%, PEEP of 5. Blood gases show a pO2 of 243, pCO2 of 41 pH of 7.35. These blood gases are consistent with a mild metabolic acidosis. That was on 100% FiO2 and the FiO2 was dropped down to 60%. She is currently on norepinephrine at 5.5 mcg/minute, propofol at 30 mcg/kg per minute, heparin via weight based protocol. Nitroglycerin IV has been discontinued and she is getting saline at 10 mL an hour. Chest x-ray shows a pattern of diffuse pulmonary edema. She likely developed flash pulmonary edema. HOME MEDICATIONS: Apparently included vitamin C, lisinopril, multiple vitamins, D3, Plavix, aspirin, Imdur, nitroglycerin, Lipitor, metoprolol. ALLERGIES: LATEX. MEDICAL HISTORY: Apparently positive for CAD, angina pectoris, hyperlipidemia, hypertension, previous myocardial infarction, DJD, pneumonia, and chronic kidney disease. SURGICAL HISTORY: Includes multiple PCIs with stent placements, at least 6 stents or so. Other surgical history is not noted. SOCIAL HISTORY: Negative for tobacco, alcohol or illicit drug use. FAMILY HISTORY: Positive for mother with hypertension and hyperlipidemia. REVIEW OF SYSTEMS: Cannot be obtained. The patient is currently intubated and mechanically ventilated and sedated with propofol. Her initial complaints in the ER as mentioned above included primarily chest pain. Current vital signs are reviewed. Her temperature is 98.3, heart rate 82, respiratory rate currently 18, blood pressure 159/79 mean 105 and saturations are in the mid 90s. Appears in no acute distress, currently sedated. She has got an orally placed endotracheal tube and NG tube. HEENT: Examination is grossly unremarkable. Mucous membranes are moist. No oral lesions. Endotracheal tube is noted. NECK: Supple. Full range of motion. No adenopathy. Neck veins are flat. CARDIOVASCULAR: Examination reveals regular rhythm and rate. Heart rate in the mid 80s. S1, S2 normal. No distinct murmurs noted. Heart sounds are distant. LUNGS: Reveal coarse rhonchi and crackles. No wheezes. Breath sounds equal. ABDOMEN: Soft. Bowel sounds are heard. EXTREMITIES: Intact. Minimal to no edema. SKIN: Without rash. There are some areas of ecchymoses. NEUROLOGIC: Examination cannot be adequately performed as the patient is currently sedated. LABS: Reviewed. White count 14.6, hemoglobin 14.7, hematocrit 45.7, platelet count 196,000. Blood gases have been noted. PTT is 48.5. Sodium 123, potassium 4.5, chloride is 100, CO2 is 10, anion gap is 13. BUN and creatinine were 25 and 1.38. Calcium 6.4. Troponin is 0.047 and 1.490. Microbiology is negative or pending. Chest x-ray shows a pattern of pulmonary edema. It is slightly improved today compared to yesterday. Medications are reviewed. The medications will be adjusted accordingly. ASSESSMENT: 1. Acute hypoxemic respiratory failure secondary to flash pulmonary edema and possible non ST-segment elevation myocardial infarction. 2. History of coronary artery disease with previous PCIs and six stent placements. 3. History of angina pectoris. 4. History of hyperlipidemia. 5. Hypertension by history. 6. Prior myocardial infarction. 7. Degenerative joint disease. 8. History of pneumonia. 9. History of chronic renal disease. PLAN: Currently, the patient is on the ventilator. She is currently receiving norepinephrine at 5.5 mcg/minute, propofol for sedation at 30 mcg/kg per minute and heparin via weight- based protocol. The Nitroglycerin has been discontinued. You will need to start tube feeds. A central line was placed in the left internal jugular site. An art line was also placed. We got consent for both procedures. Overall prognosis remains very guarded. Will continue to follow closely. Additional recommendations and suggestions are forthcoming. MMODL / IJN: [id number] /
--- NOTE | 2019-04-15 10:01 | PCN ---
PROCEDURE NOTE ARTERIAL LINE PLACEMENT: PROCEDURE: Left radial arterial line placement. PREOPERATIVE DIAGNOSIS: Cardiogenic shock. POSTOPERATIVE DIAGNOSIS: Cardiogenic shock. Indications: Hemodynamic monitoring. A time-out was completed verifying correct patient, procedure, site, positioning, and implant(s) or special equipment if applicable. Juve's test was performed to ensure adequate perfusion. The patient's left wrist was prepped and draped in sterile fashion. 1% Lidocaine was used to anesthetize the area. An 18G Arrow arterial line was introduced into the left radial artery. The catheter was threaded over the guide wire and the needle was removed with appropriate pulsatile blood return. Blood loss was minimal. The catheter was then sutured in place to the skin and a sterile dressing applied. Perfusion to the extremity distal to the point of catheter insertion was checked and found to be adequate. The patient tolerated the procedure well and there were no complications. The procedure was completed without any immediate complications. The patient tolerated procedure well, good waveform was noted, line was flushed, sutured in place, and sterile dressing was applied. MMODL / IJN: [id number] /
[2019-04-15] MEDS ORDERED: METOPROLOL TARTRATE 25 MG TAB PO SCH (10:15)
[2019-04-15 10:21] LABS: Anisocytosis Slight; Basophils # (A) 0.1 k/uL (0-0.2); Basophils % (A) 1 %; Eosinophils # (A) 0.1 k/uL (0-0.7); Eosinophils % (A) 1 %; HCT 37.5 % (34.0-46.0); HGB 12.6 gm/dL (11.4-16.0); Lymphocytes # (A) 2.2 k/uL (1.0-4.8); Lymphocytes % (A) 22 %; MCH 31.3 pg (25.0-35.0); MCHC 33.7 g/dL (31.0-37.0); MCV 92.8 fL (80.0-100.0); Mean Platelet Volume 7.1; Monocytes # (A) 0.7 k/uL (0-1.0); Monocytes % (A) 7 %; Neutrophils # (A) 6.6 k/uL (1.3-7.7); Neutrophils % (A) 68 %; Platelet Count 163 k/uL (150-450); RBC 4.04 m/uL (3.80-5.40); RDW 16.6 % (11.5-15.5); WBC 9.8 k/uL (3.8-10.6)
[2019-04-15 10:29] LABS: Ionized Calcium 4.8 mg/dL (4.5-5.3)
[2019-04-15 10:40] VITALS: BMI 23.8
--- NOTE | 2019-04-15 10:42 | PN ---
PROGRESS NOTE Mrs. Roman is an 88-year-old female with known history of coronary artery disease, status post percutaneous revascularization of her LAD, left circumflex and most recently ostial RCA in September of this year who presented yesterday with symptoms of chest discomfort and had mild troponin elevation. She was scheduled to undergo cardiac catheterization by Dr. Stefano Jane today, but last night had an episode of chest discomfort, subsequently became quite dyspneic and pulmonary edema requiring mechanical ventilation. She is intubated and sedated at this time in sinus mechanism. She was on a low-dose norepinephrine that has been withdrawn. She had no evidence of malignant arrhythmia. She is diuresing well and hemodynamically stable at this time. She continues to be on aspirin 81 mg daily, Lipitor 80 mg daily, Plavix 75 mg daily. PHYSICAL EXAMINATION: Blood pressure running in the 140s to 150s with the heart rate in the 80s. LUNGS: Clear anteriorly. HEART: Regular rate and rhythm. S1, S2. No S3. No rub appreciated. ABDOMEN: Soft. Positive bowel sounds. No organomegaly. EXTREMITIES: No edema. LAB DATA: Lab data revealed Troponin 1.490, BUN and creatinine 25 1.38, potassium 4.5, a pH 7.36 with a pCO2 of 43, pO2 of 91. Her chest x-ray this morning revealed evidence of congestion in comparison to the chest x-ray that was done yesterday is much improved. Yesterday, his chest x-ray was consistent with pulmonary edema. Her EKG shows no acute ST-segment changes. IMPRESSION: 1. Acute pulmonary edema, most likely ischemic in event. 2. Non ST-segment elevation myocardial infarction in a patient with history of multivessel angioplasty and stenting. 3. Pulmonary hypertension with moderate severe mitral regurgitation. 4. Hypertension. 5. Hyperlipidemia. 6. Chronic kidney disease. RECOMMENDATION: I discussed her case with Dr. Stefano Jane who is her primary feed crusher. In view of her presentation and her event most likely repeat coronary angiography will be helpful. Her event appears to be ischemic in etiology. Tentatively, she will be scheduled to undergo the procedure this afternoon. Depending on her progress, further recommendation will be made. MMODL / IJN: [id number] /
[2019-04-15 10:43] LABS: Calcium 8.2 mg/dL (8.4-10.2); Potassium 4.2 mmol/L (3.5-5.1)
[2019-04-15 10:46] LABS: Appearance,Urine Clear (Clear); Bacteria,Urine Rare /hpf; Bilirubin,Urine Negative (Negative); Blood,Urine Small (Negative); Color,Urine Light Yellow; Glucose,Urine (UA) Negative (Negative); Ketones,Urine Negative (Negative); Leukocyte Esterase,Urine Small (Negative); Mucus,Urine Rare /hpf; Nitrite,Urine Negative (Negative); Protein,Urine Negative (Negative); RBC,Urine 18 /hpf (0-5); Specific Gravity,Urine 1.011 (1.001-1.035); Urobilinogen,Urine <2.0 mg/dL (<2.0)
[2019-04-15] MEDS: ATORVASTATIN 80 MG TAB PO SCH (10:58)
[2019-04-15] MEDS: NITROGLYCERIN OINT 1 INCH/GM PACKET TOPICAL SCH ×2 (11:00→15:36)
[2019-04-15 11:54] LABS: Glucose,Whole Blood 120 mg/dL (75-99)
[2019-04-15] MEDS ORDERED: MAGNESIUM SULFATE-D5W PMX 1 GM in DEXTROSE/WATER 1 100ML.BAG IVPB ONE (15:00)
[2019-04-15 16:38] VITALS: TEMP 98.1
[2019-04-15 17:01] VITALS: RESP 19
[2019-04-15] MEDS ORDERED: LIDOCAINE 1% INJ 10MG/ML (20 ML MDV) SQ ONE (18:27)
[2019-04-15] MEDS ORDERED: HEPARIN SODIUM 1,000 UN/ML (10ML VL) IV ONE (19:23)
[2019-04-15] MEDS ORDERED: IOPAMIDOL-370 100ML BTL INJ ONE (19:36)
[2019-04-15] MEDS ORDERED: ONDANSETRON 4 MG/2 ML VIAL IVP PRN (20:59)
[2019-04-15] MEDS ORDERED: ATROPINE OPHTH SOLN 1% 5ML BTL SUBLINGUAL PRN (20:59)
[2019-04-15] MEDS ORDERED: MORPHINE SULFATE 4 MG/ML SYRINGE IV PRN (20:59)
[2019-04-15] MEDS ORDERED: LORazepam 2 MG/ML INJ IV PRN (20:59)
[2019-04-15] MEDS ORDERED: MORPHINE SULFATE 4 MG/ML SYRINGE IVP ONE (20:59)
[2019-04-15] MEDS ORDERED: ACETAMINOPHEN SUPPOSITORY 650 MG SUPP RECTAL PRN (20:59)
[2019-04-15] MEDS ORDERED: ARTIFICIAL TEARS-HYPROMELLOSE DROPS 15 ML BTL BOTH EYES PRN (20:59)
[2019-04-15] MEDS ORDERED: MORPHINE SULFATE 2 MG/ML SYRINGE IV PRN (20:59)
[2019-04-15] MEDS ORDERED: FAMOTIDINE 20 MG TAB PO SCH (21:00)
[2019-04-15] MEDS ORDERED: MORPHINE SULFATE (100 MG/2 ML) 100 MG in SODIUM CHLORIDE 0.9% 100 ML IV SCH (21:00)
[2019-04-15] MEDS ORDERED: SCOPOLAMINE 1.5MG/72HR PATCH TRANSDERM SCH (21:00)
[2019-04-15 22:54] VITALS: BP 132/64; PULSE 76
--- NOTE | 2019-04-15 23:10 | P.PN ---
Progress Note - Text Progress Note Date: 04/15/19 Interval history: This is a pleasant 88-year-old patient of Dr. Stoner. 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 MARI Jane. Chronic stable medical conditions include hypertension, hyperlipidemia, osteoarthritis, chronic kidney disease. Patient has known coronary artery disease. In September of this month patient had 2 stents placed to the RCA. Patient is also had prior stents. I don't 9:00 last night and developed pain across the chest. This was described as a heaviness. Did not radiate to the neck or the arm. There is no dizziness or lightheadedness. No perspiration. Slightly short of breath. This was like her previous episodes. She had another episode in early hours of the morning. But pain was present on and off most of the time. Patient did take nitroglycerin with some relief of symptoms. Presented to the ER. Admitted with a diagnosis of acute non-Q-wave OH. Today-overnight A team was called... Went into flash pulmonary edema and patient was transferred to the ICU. Patient was intubated. I saw the patient this afternoon. Was in 2.5 mics a levo fed. Also in IV heparin. Telemetry showed sinus rhythm. On the ventilator with FiO2 60 and a PEEP of 5. Also on to propofol drip. Review of systems cannot be done as patient is intubated Current medications reviewed from today's electronic records of medication list Physical examination: VITAL SIGNS: 98.5, 73, 18, 160/83, 1 GENERAL: Laying in bed, intubated. EYES: Pupils equal. Conjunctiva normal. HEENT: External appearance of nose and ears normal, oral cavity endotracheal tube in place NECK: JVD unable to assess; masses not palpable. HEART: First and second heart sounds are normal; no edema. LUNGS: Respiratory rate increased, decreased breath sounds. ABDOMEN: Soft, nontender, liver spleen not palpable, no masses palpable. PSYCH: Unable to assess. INVESTIGATIONS, reviewed in the clinical context: White count 9.8 hemoglobin 12.6 potassium 4.2 BUN 31 creatinine 1.68 Troponin I 0.017, 0.063, 4.6 Chest x-ray film personally reviewed by me shows pulmonary edema and pleural effusion Admission testing EKG tracing personally reviewed by me shows ST-T depression in V3 to V6 and inferior leads also in lead 1 and aVL Chest x-ray film personally reviewed by me-shows borderline cardiomegaly questionable venous prominence 2-D echocardiogram shows EF 40-45% moderate to severe pulmonary hypertension, severe mitral regurgitation Assessment: -Acute non-Q-wave myocardial infarction, POA -Acute flash pulmonary edema from underlying acute OH -Acute hypoxic respiratory failure from pulmonary edema requiring ventilator support -Coronary artery disease with prior history of stents -Hyperlipidemia -Essential hypertension with urgency -Primary osteoarthritis -Peripheral arterial disease -Chronic kidney disease stage III probably from nephrosclerosis Plan: Patient is currently intubated. On IV levo fed and to prevent. IV heparin has been temporally held. Due for a cardiac catheterization later today. Prognosis guarded. Being followed by outside machinist and cardiology..
--- NOTE | 2019-04-16 07:41 | CC ---
CARDIAC CATHETERIZATION REPORT DATE OF SERVICE: 04/15/2019. PROCEDURES: 1. Coronary angiography. 2. PTCA of a subtotally occluded dominant ostial RCA stenosis. PERFORMED BY: Dr. Stefano Jane. Moderate conscious sedation time was 64 minutes. Patient was on a vent already sedated and her oxygen saturation and hemodynamics were monitored closely. CLINICAL INFORMATION: Mrs. Lulu Roman is an 88-year-old lady. She has history of hypertension, hyperlipidemia, and CAD. Over the years, she had stenting of LAD performed and circumflex performed in [place] or so. In March of 2018, she had stenting of circumflex marginal performed by Dr. Singleton when she presented with a non-ST elevation NC. She also had an ostial RCA stenosis. In September of 2018, I performed stenting of ostial RCA which was a technically difficult lesion with heavy calcification. I used a 2.0 caliber Rajeev stent and then dilated that with a 3.25 caliber NC Trek balloon with excellent result. She also has peripheral arterial disease and underwent stenting of her popliteal artery on the right side and left iliac artery as well. This was performed in October of 2018. She came into the hospital with symptoms suggestive of unstable angina, had a borderline troponin elevation then last night developed pulmonary edema and was transferred to the ICU, intubated and troponin went up to 4.6. Echo revealed ejection fraction of about 35% to 40% with moderate mitral regurgitation. Cardiac cath was initially scheduled at 9:00 am, but we stabilized her and after weaning her off the Levophed drip, I met with the family and talked to them at length this morning. I explained to them that the probability of RCA restenoses was quite high and I would recommend coronary angiography and intervention and explained to them that the intervention would be a very technically difficult procedure given the ostial nature of the lesion and previous stent in the ostial location. The family understood all details and wished to proceed with the procedure. 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 Under local anesthesia and strict aseptic precautions, a 6-Slovenian introducer was placed in the right femoral artery. Micropuncture needle technique was used. Using a standard left Eusebio catheter I performed selective coronary angiography of the left coronary artery. I noted that the left system was patent without significant disease. I then recommended that we will proceed with intervention of the RCA which had a 99% stenosis. I did not check LV pressures. I proceeded to perform PCI of RCA. Initially I used a KRS catheter with this I was able to cannulate the RCA. I advanced a run- through wire just to the first few centimeters of the RCA then the guide catheter slipped back. I was unable to get good guide support. I used multiple guide catheters including AR 2, standard right, KRS and KRH catheters and also used a 0.75 left Amplatz guide catheter. I did not get good guide support. The best scenario was a KRS catheter with a whisper wire, I was able to go at least to the proximal portion of the RCA and then the guide catheter kicked back. I did not get a good guide support. I gave about 75 mL of contrast. I felt that I could not successfully open up this artery mainly because of inadequate guide support and the location of the stent was in the ostium of the RCA making it very difficult to get a good seating of the guide catheter. I therefore took the guide catheter out, sutured the sheath, went and spoke to the family at length. I explained to them that I was unsuccessful and I would like to transfer her to [facility] to see if they will have a better success since I do not feel aortocoronary bypass surgery is a very good option for this patient with multiple comorbid conditions including CKD, peripheral artery disease. After a long discussion with several family members including her and children, they are in agreement. Patient is hemodynamically stable. She is only on 1 mcg of Levophed. Her blood pressure was 150/78. She is hemodynamically stable on 1 mcg of Levophed. She will be transferred by [facility] ambulance to [facility] for possible intervention tomorrow. The unsuccessful nature of the procedure and the rationale for transfer was carefully explained to the family members and all questions were answered. They are in agreement and we will therefore proceed with the transfer arrangements. CARDIAC CATHETERIZATION FINDINGS: LEFT MAIN CORONARY ARTERY: Short patent vessel with minor irregularities that bifurcates into LAD and circumflex. LEFT ANTERIOR DESCENDING CORONARY ARTERY: Fair caliber vessel which was stented in the proximal and middle portion, widely patent, good flow. No significant disease. Minor irregularities. Gives off septal and diagonal branches. LEFT POSTERIOR CIRCUMFLEX CORONARY ARTERY: This vessel was stented in the proximal portion and the first obtuse marginal, both of which are patent. Groove branch is patent. Left atrial circumflex branch is patent. However, there is one obtuse marginal that is totally occluded and seem to fill somewhat late. The angiographic appearance of circumflex is unchanged compared to September of this year. RIGHT CORONARY ARTERY: This is a dominant vessel has a subtotal occlusion in the proximal portion, 99% stenosis within the ostial stent of RCA. Distally the caliber of the vessel is good, bifurcates in large PDA and PLV supplies a fair amount of myocardium. PCI PROCEDURE DETAILS: As mentioned above, patient was administered 3000 units of heparin and I attempted to cross the wire without success. This was unsuccessful PCI. Patient's sheath was sutured and she will be transferred to [facility] for intervention by Dr. Maher. The patient received 3000 units of heparin, was already on intravenous heparin that was stopped 2 hours prior to the procedure. MMODL / IJN: [id number] /
[2019-04-16] MEDS ORDERED: ASPIRIN 81 MG PO SCH (09:00)
== END 2019-04-15 23:14 | disposition hospice, inpatient (51) | DRG 250 ==
LOC: EC 05:02 → 1SOBS 06:37 → 2SICU 04-15 00:43 → OBSVTOIN 04-15 01:15
PROVIDERS: ADMIT Hospitalist; ATTEND Hospitalist
PROC: B2111ZZ Fluoroscopy of Multiple Coronary Arteries using Low Osmolar Contrast (ICD-10-PCS; 2019-04-15)
PROC: 5A1935Z Respiratory Ventilation, Less than 24 Consecutive Hours (ICD-10-PCS; 2019-04-15)
PROC: 0BH17EZ Insertion of Endotracheal Airway into Trachea, Via Natural or Artificial Opening (ICD-10-PCS; 2019-04-15)
PROC: 03HY32Z Insertion of Monitoring Device into Upper Artery, Percutaneous Approach (ICD-10-PCS; 2019-04-15)
PROC: 4A133B1 Monitoring of Arterial Pressure, Peripheral, Percutaneous Approach (ICD-10-PCS; 2019-04-15)
PROC: 4A133J1 Monitoring of Arterial Pulse, Peripheral, Percutaneous Approach (ICD-10-PCS; 2019-04-15)
PROC: 02H633Z Insertion of Infusion Device into Right Atrium, Percutaneous Approach (ICD-10-PCS; 2019-04-15)
PROC: 02703ZZ Dilation of Coronary Artery, One Artery, Percutaneous Approach (ICD-10-PCS; principal; 2019-04-15 17:58)
PROC: 4A023N7 Measurement of Cardiac Sampling and Pressure, Left Heart, Percutaneous Approach (ICD-10-PCS; 2019-04-15 17:58)
DX: I21.4 Non-ST elevation (NSTEMI) myocardial infarction (principal); J81.0 Acute pulmonary edema; J96.01 Acute respiratory failure with hypoxia; R57.0 Cardiogenic shock; E87.2 Acidosis; I16.1 Hypertensive emergency; T82.858A Stenosis of other vascular prosthetic devices, implants and grafts, initial encounter; E78.5 Hyperlipidemia, unspecified; I12.9 Hypertensive chronic kidney disease with stage 1 through stage 4 chronic kidney disease, or unspecified chronic kidney disease; I25.110 Atherosclerotic heart disease of native coronary artery with unstable angina pectoris; I25.2 Old myocardial infarction; I27.20 Pulmonary hypertension, unspecified; I34.0 Nonrheumatic mitral (valve) insufficiency; I73.9 Peripheral vascular disease, unspecified; M19.91 Primary osteoarthritis, unspecified site; N18.3 Chronic kidney disease, stage 3 (moderate); Z79.02 Long term (current) use of antithrombotics/antiplatelets; Z79.82 Long term (current) use of aspirin; Z79.899 Other long term (current) drug therapy; Z82.49 Family history of ischemic heart disease and other diseases of the circulatory system; Z87.01 Personal history of pneumonia (recurrent); Z66 Do not resuscitate; Z51.5 Encounter for palliative care; Z91.040 Latex allergy status; M19.90 Unspecified osteoarthritis, unspecified site
CPT/HCPCS: 31500; 36415; 36600; 71045; 80048; 80053; 80061; 81001; 82330; 82805; 83735; 84100; 84484; 85025; 85610; 85730; 93005; 93306; 93458; 94002; 94640; 96365; 96366; 96375; 96376; 99285

== ENCOUNTER 2019-04-15 23:05 | Inpatient (IN) | payer MEDICAID ==
[2019-04-15] MEDS ORDERED: LORazepam 2 MG/ML INJ IV PRN (23:20)
[2019-04-15] MEDS ORDERED: MORPHINE SULFATE 2 MG/ML SYRINGE IV PRN (23:20)
[2019-04-15] MEDS ORDERED: ONDANSETRON 4 MG/2 ML VIAL IVP PRN (23:20)
[2019-04-15] MEDS ORDERED: ATROPINE OPHTH SOLN 1% 5ML BTL SUBLINGUAL PRN (23:20)
[2019-04-15] MEDS ORDERED: ACETAMINOPHEN SUPPOSITORY 650 MG SUPP RECTAL PRN (23:20)
[2019-04-15] MEDS ORDERED: MORPHINE SULFATE 4 MG/ML SYRINGE IVP ONE (23:20)
[2019-04-15] MEDS ORDERED: BISACODYL 10 MG SUPP RECTAL PRN (23:23)
[2019-04-15] MEDS ORDERED: MORPHINE SULFATE (100 MG/2 ML) 100 MG in SODIUM CHLORIDE 0.9% 100 ML IV SCH (23:30)
[2019-04-15] MEDS ORDERED: SCOPOLAMINE 1.5MG/72HR PATCH TRANSDERM SCH (23:30)
--- NOTE | 2019-04-20 09:41 | DS ---
DISCHARGE SUMMARY DATE OF ADMISSION: 04/15/2019 DATE PATIENT : 04/15/2027. CAUSE OF : Coronary artery disease. HOSPITAL COURSE: Patient admitted to [facility] service for symptom control under hospice care. The patient succumbed to underlying condition. . MMODL / IJN: [id number] /
== END 2019-04-16 12:26 | disposition expired | DRG 951 ==
LOC: 2SICU 23:15
PROVIDERS: ADMIT Hospitalist; ATTEND Hospitalist
DX: Z51.5 Encounter for palliative care (principal); I25.10 Atherosclerotic heart disease of native coronary artery without angina pectoris